=== PATIENT | male | born 1940 | race Caucasian/White ===

== ENCOUNTER 2021-08-10 09:09 | Inpatient (IN) | payer MEDICARE ==
[~2021-08-10] VITALS: Ht 160 cm; Wt 82.1 kg
[2021-08-10] MEDS ORDERED: MELATONIN 3 MG TABLET PO PRN (11:45)
[2021-08-10] MEDS ORDERED: LOPERAMIDE 2 MG (IMODIUM) TABLET PO PRN (11:45)
[2021-08-10] MEDS ORDERED: ACETAMINOPHEN 325 MG TABLET PO PRN (11:45)
[2021-08-10] MEDS ORDERED: CALCIUM CARBONATE 500 MG (TUMS) TAB.CHEW PO PRN (11:45)
[2021-08-10] MEDS ORDERED: diphenhydrAMINE 25 MG TAB (BENADRYL) PO PRN (11:45)
[2021-08-10] MEDS ORDERED: ONDANSETRON 4 MG (ZOFRAN) ORAL DISSOLVE TAB PO PRN (11:45)
[2021-08-10] MEDS ORDERED: LACTULOSE SYRUP 10GM/15ML (ENULOSE) 30ML UDC PO PRN (11:45)
[2021-08-10] MEDS ORDERED: BISACODYL 10 MG SUPP (DULCOLAX) PR PRN (11:45)
[2021-08-10] MEDS ORDERED: ALPRAZolam 0.25 MG (XANAX) TAB PO PRN (11:45)
[2021-08-10] MEDS ORDERED: DOCUSATE SODIUM 100 MG (COLACE) CAP PO PRN (11:45)
[2021-08-10] MEDS ORDERED: guaiFENesin/CODEINE (ROBITUSSIN AC) 10ML UDC PO PRN (11:45)
[2021-08-10] MEDS ORDERED: FLEET ENEMA ADULT 1 EA BTL PR PRN (11:45)
[2021-08-10 13:15] VITALS: BP 131/63
--- NOTE | 2021-08-10 13:56 | Occupational Therapy Eval ---
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 He was diagnosed with UTI and hyponatremia. Per patient, he lives with his daughter in a single story home. Daughter reports that pt is dependent for upper body dressing, LB dressing, toileting, and bathing. Pt able to feed self with use of L hand. R side presents with flexed synergy pattern. Pt has a resting hand splint that he is supposed to wear at night. He only walks a very short distance (<10 feet) with use of cane and min a. Otherwise, pt uses manual w/c for all mobility. He was able to transfer in/out of w/c without assistance. Pt with indwelling marcos catheter Reviewed History: Yes Social History Home: Single Level Current Living Status: Children Entry Into Home: Level Entry ADL-Prior Level of Function SCALE: Activities may be completed with or without assistive devices. 4-Mamdhbnntc-kihyxjo completes the activity by him/herself with no assistance from a helper. 5-Set-up or Clean-up Assistance-helper sets up or cleans up; patient completes activity. [place] assists only prior to or following the activity. 4-Supervision or Touching Assistance-helper provides verbal cues and/or touching/steadying and/or contact guard assistance as patient completes activity. Assistance may be provided throughout the activity or intermittently. 3-Partial/Moderate Assistance-helper does LESS THAN HALF the effort. [place] lifts, holds or supports trunk or limbs, but provides less than half the effort. 2-Substantial/Maximal Assistance-helper does MORE THAN HALF the effort. [place] lifts or holds trunk or limbs and provides more than half the effort. 4-Xjgccevpk-ybgydg does ALL the effort. Patient does none of the effort to complete the activity. Or, the assistance of 2 or more helpers is required for the patient to complete the activity. If activity was not attempted, code reason: 7-Patient Refused. 9-Not Applicable-not attempted and the patient did not perform the activity before the current illness, exacerbation or injury. 10-Not Attempted due to Environmental Limitations-(lack of equipment, weather restraints, etc.). 88-Not Attempted due to Medical Conditions or Safety Concerns. Self Care: Dependent Functional Cognition: Needed Some Help DME/Equipment: Bath Bench, Tub/Shower Drive Self: No OT Current Status Subjective Pt denies pain, agreeable to evaluation. Appearance Pt left sitting in recliner, physical therapy entering room. Mental Status/Objective Patient Orientation: Person, Situation Attachments: Marcos Catheter (indewelling marcos catheter ) Current Hearing Aids: No Dentures/Partials: Yes Hand Dominance: Left Upper Extremity ROM RUE: severely impaired; flexed synergy pattern. LUE: WFL Upper Extremity Strength L shoulder: 3/5 L elbow: 4/5 L vibration engineer: poor ADL-Treatment Eating (QC): 4 (per patient report with L hand) Oral Hygiene (QC): 4 Shower/Bathe Self (QC): 7 Upper Body Dressing (QC): 7 Lower Body Dressing (QC): 1 (assist x2) On/Off Footwear (QC): 1 Toileting Hygiene (QC): 1 (indwelling marcos catheter) Pt sitting in w/c at OT arrival. MAX A to stand. Assist x2 to pivot towards recliner. Very unsteady on feet secondary to weakness. Assist needed to lift/cross bilateral feet over contralateral knee. Max a to don/doff bilateral socks/shoes secondary to impaired bilateral integration and functional use of L hand. At this time pt requires max a to stand and maintain balance, thus needing a second person to assist with clothing management over hips. Family reports that pt is dependent for all adls except eating. However pt does exhibit some potential to improve independence in order to reduce burden of care on caregiver. Pt left with ARRIAGA to take over treatment. Education OT Patient Education: Correct positioning, Purpose of tx/functional activities, Rehab process, Safety issues, Transfer techniques, W/C management Teaching Recipient: Patient, Family Teaching Methods: Demonstration, Discussion Response to Teaching: Verbalize Understanding, Return Demonstration, Reinforcement Needed OT Short Term Goals Short Term Goals Time Frame: Aug 20, 2021 Eatin Oral hygiene: 5 Toileting hygiene: 2 Shower/bathe self: 2 Upper body dressin Lower body dressin Putting on/taking off footwear: 2 OT Interior Design Director Goals Interior Design Director Goals Time Frame: Sep 06, 2021 Eating (QC): 5 Oral Hygiene (QC): 5 Toileting Hygiene (QC): 4 Shower/Bathe Self (QC): 3 Upper Body Dressing (QC): 3 Lower Body Dressing (QC): 3 On/Off Footwear (QC): 3 1=Demonstrate adherence to instructed precautions during ADL tasks. 2=Patient will verbalize/demonstrate understanding of assistive devices/modifications for ADL. 3=Patient will improve strength/tolerance for activity to enable patient to perform ADL's. OT Education/Plan Problem List/Assessment Assessment: Decreased Activ Tolerance, Decreased Safety Aware, Decreased UE Strength, Dependent Transfers, Impaired Bed Mobility, Impaired Cognition, Impaired Coordination, Impaired Funct Balance, Impaired Self-Care Skills, Restricted Funct UE ROM Discharge Recommendations Plan/Recommendations: Continue POC Therapy Discharge Recommendati: Post Acute OT Treatment Plan/Plan of Care Treatment,Training & Education: Yes Patient would benefit from OT for education, treatment and training to promote independence in ADL's, mobility, safety and/or upper extremity function for ADL's. Plan of Care: ADL Retraining, Caregiver Training, Cognitive Retraining, Functional Mobility, Group Exercise/Act as Ind, Orthotic Fitting/Training, UE Funct Exercise/Act, UE Neuromus Re-Ed/Coord, W/C Management Training Treatment Duration: Sep 06, 2021 Frequency: At least 5 of 7 days/Wk (IRF) Estimated Hrs Per Day: 1.5 hours per day (75-90min/day ) Agreement: Yes Time/GCodes Start Time: 13:14 Stop Time: 13:30 Total Time Billed (hr/min): 16 Billed Treatment Time 1 visit Diane Bey OT Aug 10, 2021 13:56
--- NOTE | 2021-08-10 14:05 | Physical Therapy Evaluation ---
PT Evaluation-General Medical Diagnosis Admission Date Medical Diagnosis: debility Onset Date: August 04, 2021 Therapy Diagnosis Therapy Diagnosis: impaired mobility, balance, strength Referral Physician: Kenna Medley DO Reason for Referral: Evaluation/Treatment Medical History Reviewed History: Yes Social History Current Living Status: Children (daughter) Entry Into Home: Level Entry Prior Prior Level of Function SCALE: Activities may be completed with or without assistive devices. 0-Lmpryxkmdf-cmdhxys completes the activity by him/herself with no assistance from a helper. 5-Set-up or Clean-up Assistance-helper sets up or cleans up; patient completes activity. [place] assists only prior to or following the activity. 4-Supervision or Touching Assistance-helper provides verbal cues and/or touching/steadying and/or contact guard assistance as patient completes activity. Assistance may be provided throughout the activity or intermittently. 3-Partial/Moderate Assistance-helper does LESS THAN HALF the effort. [place] lifts, holds or supports trunk or limbs, but provides less than half the effort. 2-Substantial/Maximal Assistance-helper does MORE THAN HALF the effort. [place] lifts or holds trunk or limbs and provides more than half the effort. 6-Tkigodpqh-mkemxr does ALL the effort. Patient does none of the effort to complete the activity. Or, the assistance of 2 or more helpers is required for the patient to complete the activity. If activity was not attempted, code reason: 7-Patient Refused. 9-Not Applicable-not attempted and the patient did not perform the activity b efore the current illness, exacerbation or injury. 10-Not Attempted due to Environmental Limitations-(lack of equipment, weather restraints, etc.). 88-Not Attempted due to Medical Conditions or Safety Concerns. Bed Mobility: 3 Transfers (B,C,W/C): 3 Gait: 3 Indoor Mobility (Ambulation): Needed Some Help Prior Devices Use: Manual wheelchair Prior Device Use: SPC only ambulated a few feet at a time PT Evaluation-Current Subjective Patient in recliner pre tx, agrees to PT, has no complaints of pain. Pt/Family Goals to be independent at home Objective Patient Orientation: Person, Place, [place] ROM/Strength ROM Lower Extremities WNL Strength Lower Extremities RLE (hip flexion 3+/5, knee flexion 3+/5, knee extension 4-/5, dorsiflexion 3- /5), LLE (hip flexion 3+/5, knee flexion 4+/5, knee extension 4+/5, dorsiflexion 4+/5) Sensory Vision: Functional Hearing: Functional Sensation Right Lower Extremit: Impaired Sensation Left Lower Extremity: Intact Transfers Roll Left & Right (QC): 10 Sit to Lying (QC): 10 Lying to Sitting/Side of Bed(Q: 10 Sit to Stand (QC): 3 Chair/Yfa-ej-Clmxk Xfer(QC): 3 Toilet Transfer (QC): 3 Car Transfer (QC): 3 Patient performs sit <-> stand with min assist, transfers min assist, car transfer mod assist. Patient is unsteady on his feet with just standing and transfers, needs cues for positioning and safety, transfers better to the left s tai. Gait Does the Patient Walk?: Yes Mode of Locomotion: Walk Anticipated Mode of Locomotion: Walk Walk 10 feet (QC): 88 Walk 50 ft with 2 Turns(QC): 88 Walk 150 ft (QC): 88 Walking 10ft/uneven surface-QC: 88 Distance: 5' Gait Assistive Device: Cane Single Point Comments/Gait Description Patient can ambulate 5' with a SPC with min assist, WC follow, patient has difficulty extending his right leg to take a step, his right foot tends to supinate, his daughter states he has an AFO but doesn't like to wear it. Wheelchair Training Does the Pt Use a Wheelchair?: Yes Distance: 50' Wheel 50 ft with 2 turns (QC): 4 Wheel 150 ft (QC): 88 Type of Wheelchair: Manual SBA, cues for direction, uses both feet to propel Stairs 1 Step (curb) (QC): 88 4 Steps (QC): 88 12 Steps (QC): 88 Balance Sitting Static: Fair Sitting Dynamic: Fair Standing Static: Poor Standing Dynamic: Poor Picking up an Object (QC): 88 Assessment/Needs Patient in WC post tx, DIET THERAPIST will be taking over tx from here. Patient has impaired mobility, strength, endurance, balance. He has weakness and decreased coordination on the right side. Rehab Potential: Fair PT Short Term Goals Short Term Goals Time Frame: Aug 17, 2021 Roll Left & Right: 3 (Ed) Sit to lyin (Ed) Lying to sitting on side of be: 3 (Ed) Sit to stand: 4 (CGA) Chair/uzx-wn-sxuod transfer: 4 (CGA) Walk 10 feet: 4 (CGA) PT Shelter Goals Cash Specialist Goals PT Shelter Goals Time Frame: Aug 31, 2021 Roll Left & Right (QC): 4 (SBA) Sit to Lying (QC): 4 (SBA) Lying-Sitting on Side/Bed(QC): 4 (SBA) Sit to Stand (QC): 4 (SBA) Chair/Dea-pq-Wlsvs Xfer(QC): 4 (SBA) Toilet Transfer (QC): 4 (SBA) Car Transfer (QC): 4 (SBA) Does the Patient Walk: Yes Walk 10 feet (QC): 4 (SBA) Walk 50ft with 2 Turns (QC): 88 Walk 150 ft (QC): 88 Walking 10ft on Uneven Surface: 4 (CGA) 1 Step (curb) (QC): 88 4 Steps (QC): 88 12 Steps (QC): 88 Picking up an Object (QC): 88 Wheel 50 feet with 2 turns (QC: 6 Wheel 150 feet: 6 PT Plan Problem List Problem List: Activity Tolerance, Functional Strength, Safety, Balance, Gait, Transfer, Bed Mobility, ROM Treatment/Plan Treatment Plan: Continue Plan of Care Treatment Plan: Bed Mobility, Education, Functional Activity Ki, Functional Strength, Group Therapy, Gait, Safety, Therapeutic Exercise, Transfers Treatment Duration: Aug 31, 2021 Frequency: At least 5 of 7 days/Wk (IRF) Estimated Hrs Per Day: 1.5 hours per day Patient and/or Family Agrees t: Yes Safety Risks/Education Patient Education: Gait Training, Transfer Techniques, Correct Positioning, W/C Management, Safety Issues Teaching Recipient: Patient Teaching Methods: Demonstration, Discussion Response to Teaching: Reinforcement Needed Discharge Recommendations Plan Patient will perform bed mobility and transfer training, balance and endurance training, functional strengthening, stair training, gait training, and education, to improve functional mobility and independence at home. Therapy Discharge Recommendati: Scheduled Assistance, Home & Family, Post Acute PT Time/GCodes Time In: 1330 Time Out: 1340 Total Billed Treatment Time: 10 Total Billed Treatment 1 visit PAN ALEKSANDR LEAL PT Aug 10, 2021 14:05
--- NOTE | 2021-08-10 14:38 | PM&R Post Admission Assessment ---
PM&R HP Date of Visit: Aug 10, 2021 Time of Visit: 15:15 History of Present Illness CC: Debility HPI: This is an 81 yr old male clinic pt [facility]. He was admitted to [facility] with a UTI, hyponatremia, hypertension, and BPH. He is on FloMax and has a suprapubic catheter. He has type 2 diabetes and a history of CVA 3 years ago with right sided weakness. Pt was admitted and is currently needing a lot more help with ADLs and ambulation. Pt is in need of aggressive treatment in order to go home with daughter who works during the day. At this current time pt denies any significant new problems. I did review his hospital course from [facility] and discharge medications. Past Mtqlakr-Vnwnjn-Izkail Hx Past Med/Social Hx: Reviewed Nursing Past Med/Soc Hx, Reviewed and Corrections made Patient Social History Marrital Status: single Employed/Student: retired Alcohol Use: Denies Use Smoking Status: Former Smoker Past Medical History SP catheter Cardiac: High Cholesterol, Hypertension pacemaker Neurological: Stroke Genitourinary: Benign Prostatic Hyperpl, Neurogenic Bladder Endocrine: Diabetes, Non-Insulin dep Prior Level of Function Bed Mobility: 3 Transfers: 3 Gait: 3 Indoor Mobility (Ambulation): Needed Some Help Prior Devices Use: Manual wheelchair SPC Self Care: Dependent Functional Cognition: Needed Some Help Drive Self: No Current Level of Fuctioning Roll Left to Right: 10 Sit to Lyin Lying to Sitting/Side of Bed: 10 Sit to Stand: 3 Chair/Lxg-vq-Lqvip Xfer: 3 Car Transfer: 3 Does the Patient Walk: Yes Mode of Locomotion: Walk Anticipated Mode of Locomotion: Walk Walk 10 feet: 88 Walk 50 ft with 2 Turns: 88 Walk 150 ft: 88 Walking 10ft on uneven surface: 88 Gait Assistive Device: Cane Single Point Does the Pt Use a Wheelchair: Yes Wheelchair Distance: 50' Wheel 50 ft with 2 turns: 4 Wheel 150 ft: 88 Type of Wheelchair: Manual 1 Step (curb): 88 4 Steps: 88 12 Steps: 88 Picking up an Object: 88 Eatin (per patient report with L hand) Oral Hygiene: 4 Shower/Bathe Self: 7 Upper Body Dressin Lower Body Dressin (assist x2) On/Off Footwear: 1 Toileting Hygiene: 1 (indwelling marcos catheter) PM&R Allergy/Meds/Data Review Allergies Coded Allergies: lovastatin (Verified Adverse Reaction, Unknown, Vomiting, 08/10/21) simvastatin (Verified Adverse Reaction, Unknown, 08/10/21) Current Medications Current Medications Reviewed Review of Systems Constitutional: see HPI, malaise, weakness EENTM: no symptoms reported Respiratory: no symptoms reported Cardiovascular: no symptoms reported Gastrointestinal: no symptoms reported Genitourinary: no symptoms reported Musculoskeletal: back pain Skin: no symptoms reported Psychiatric/Neurological: No Symptoms Reported All Other Systems Reviewed Negative Unless Noted: Yes Physical Exam Physical Exam Vital Signs Vital Signs - First Documented 08/10/21 13:15 Temp 37.1 Pulse 104 Resp 18 B/P (MAP) 131/63 (85) Pulse Ox 97 O2 Delivery Room Air Capillary Refill : Height, Weight, BMI Height: '" Weight: lbs. oz. kg; BMI Method: General Appearance: No Apparent Distress, WD/WN, Chronically ill, Obese Eyes: Bilateral Eye Normal Inspection, Bilateral Eye PERRL HEENT: PERRL/EOMI, Normal ENT Inspection, Pharynx Normal Neck: Full Range of Motion, Normal Inspection, Non Tender, Supple, Carotid Bruit Respiratory: Chest Non Tender, Lungs Clear, Normal Breath Sounds, No Accessory Muscle Use, No Respiratory Distress Cardiovascular: Regular Rate, Rhythm, No Edema, No Gallop, No JVD, No Murmur, Normal Peripheral Pulses Gastrointestinal: Normal Bowel Sounds, No Organomegaly, No Pulsatile Mass, Non Tender, Soft Back: Normal Inspection, No CVA Tenderness, No Vertebral Tenderness Extremity: Normal Capillary Refill, Normal Inspection, Normal Range of Motion, Non Tender, No Calf Tenderness, No Pedal Edema Neurologic/Psychiatric: Alert, Oriented x3, meter changes records clerk II-XII Norm as Tested, Depressed Affect, Motor Weakness (right sided chronic, generalized all extremities) Skin: Normal Color, Warm/Dry Lymphatic: No Adenopathy PM&R Medical Assessment & Plan REHAB/MEDICAL ASSESSMENT AND PLAN: REHAB IMPAIRMENT GROUP: Debility ETIOLOGIC DIAGNOSIS: Debility The comorbidities that impact the patients function and/or functional outcome by: neurogenic bladder, pacemaker, advanced age REHAB PLAN: The patient is being admitted to our comprehensive inpatient rehabilitation [facility] and can tolerate the intensity of service consisting of at least: 180 minutes of therapy a day, 5 out of 7 days a week Rehab treatment will consist of: PT OT will focus on regaining function in order to return to independent living with daughter his shoe cutter The patient/family has a good understanding of our discharge process and will benefit from an interdisciplinary inpatient rehabilitation program. The patient has potential to make improvement and is in need of at least two of the following multidisciplinary therapies including but not limited to physical, occupational, speech, and prosthetics and orthotics. Additionally the patient will need services from respiratory, nutritional services, wound care, psychology, etc. (Customize this to each patient). Given the patients complex condition and risk of further medical complications, rehabilitation services cannot be safely or effectively provided at a lower level of care such as a [facility] facility. BARRIERS TO DISCHARGE: Advanced age and debility ESTIMATED LOS: 10 days DISPOSITION: Home RELEVANT CHANGES SINCE PREADMISSION SCREENING: I have compared the patients medical and functional status at the time of the preadmission screening and there are: no changes PROGNOSIS: Fair REHABILITATION GOALS: 1. PT OT will focus on regaining function in order to return to independent monica ng with daughter his shoe cutter All the above goals were reviewed with the patient and he/she is in agreement. By signing this document, I acknowledge that I have personally performed a full physical examination on this patient within 24 hours of admission to this inpatient rehabilitation facility and have determined the patient to be able to tolerate the above course of treatment at an intensive level for a reasonable period of time. I will be completing a detailed individualized Plan of Care for this patient by day #4 of the patients stay based upon the Preadmission Screen, the Post-Admission Evaluation, and the therapy evaluations. Admission Dx/Comorbidities: (1) Debility ICD Codes: R53.81 - Other malaise Assessment/Plan Assessment and Plan Assess & Plan/Chief Complaint Assessment: Debility Pacemaker Neurogenic bladder s/p UTI DM CVA 3 years ago with right sided weakness Advanced age Plan: PT OT per protocol Pain control Home meds Cardiology consult LIBBY LEAL DO Aug 10, 2021 14:38
--- NOTE | 2021-08-10 15:12 | Physical Therapy Daily Note ---
PT Daily Note-Current Subjective Pt sitting in [facility] being evaluated upon arrival. Pt agrees to PT/OT co-treat for tx. Pain Location: No Pain Reported Mental Status Patient Orientation: Person, Place, Situation Transfers SCALE: Activities may be completed with or without assistive devices. 0-Vhuusxnrjg-qggabkg completes the activity by him/herself with no assistance from a helper. 5-Set-up or Clean-up Assistance-helper sets up or cleans up; patient completes activity. [place] assists only prior to or following the activity. 4-Supervision or Touching Assistance-helper provides verbal cues and/or touching/steadying and/or contact guard assistance as patient completes activity. Assistance may be provided throughout the activity or intermittently. 3-Partial/Moderate Assistance-helper does LESS THAN HALF the effort. [place] lifts, holds or supports trunk or limbs, but provides less than half the effort. 2-Substantial/Maximal Assistance-helper does MORE THAN HALF the effort. [place] lifts or holds trunk or limbs and provides more than half the effort. 4-Rapnfmfeh-abtvsr does ALL the effort. Patient does none of the effort to complete the activity. Or, the assistance of 2 or more helpers is required for the patient to complete the activity. If activity was not attempted, code reason: 7-Patient Refused. 9-Not Applicable-not attempted and the patient did not perform the activity before the current illness, exacerbation or injury. 10-Not Attempted due to Environmental Limitations-(lack of equipment, weather restraints, etc.). 88-Not Attempted due to Medical Conditions or Safety Concerns. Sit to Stand (QC): 2 Chair/Qvj-vi-Oochf Xfer(QC): 2 Weight Bearing Full Weight Bearing Full Weight Bearing Wheelchair Training Does the Pt Use a Wheelchair?: Yes Wheel 50 ft with 2 turns (QC): 4 Type of Wheelchair: Manual Exercises Seated Therapy Exercises: Sit to stand Seated Reps: 3 NuStep Minutes: 10 NuStep Workload: 1 Treatments Pt requires the skill of two clinicians that could not otherwise be completed by a r&d lab technician because of increase weakness, decrease in activity tolerance, coordination of UE & LE danielle. w/transfers. Pt propels [facility] to Therapy Gym. Pt completes Sit to Stands at //bars with RB in between each, focus on proper posture and breaking up tone UE. Pt uses NuStep for 10m at [facility] 1 for ROM focus. R UE is not used but is stretched during NuStep use. Pt returns to room to brush teeth and dentures then TF from [facility] to EOB after several attempts. Pt requires assistance to lift B LE into bed and repositioned to comfort. All needs met, call light in hand. Assessment Current Status: Fair Progress Pt is very apprehensive danielle. w/TF. Encouragement given during sequencing of task. Pt fatigues easily, needing frequent RB. PT Short Term Goals Short Term Goals Time Frame: Aug 17, 2021 Roll Left & Right: 3 (Ed) Sit to lyin (Ed) Lying to sitting on side of be: 3 (Ed) Sit to stand: 4 (CGA) Chair/xce-gk-iuvoe transfer: 4 (CGA) Walk 10 feet: 4 (CGA) PT Deboning Team Leader Goals Deboning Team Leader Goals PT Skilled Nursing Goals Time Frame: Aug 31, 2021 Roll Left & Right (QC): 4 (SBA) Sit to Lying (QC): 4 (SBA) Lying-Sitting on Side/Bed(QC): 4 (SBA) Sit to Stand (QC): 4 (SBA) Chair/Dru-hy-Qyvhn Xfer(QC): 4 (SBA) Toilet Transfer (QC): 4 (SBA) Car Transfer (QC): 4 (SBA) Does the Patient Walk: Yes Walk 10 feet (QC): 4 (SBA) Walk 50ft with 2 Turns (QC): 88 Walk 150 ft (QC): 88 Walking 10ft on Uneven Surface: 4 (CGA) 1 Step (curb) (QC): 88 4 Steps (QC): 88 12 Steps (QC): 88 Picking up an Object (QC): 88 Wheel 50 feet with 2 turns (QC: 6 Wheel 150 feet: 6 PT Plan Problem List Problem List: Activity Tolerance, Functional Strength, Safety, Balance, Gait, Transfer Treatment/Plan Treatment Plan: Continue Plan of Care Treatment Plan: Bed Mobility, Education, Functional Activity Ki, Functional Strength, Group Therapy, Gait, Safety, Therapeutic Exercise, Transfers Treatment Duration: Aug 31, 2021 Frequency: At least 5 of 7 days/Wk (IRF) Estimated Hrs Per Day: 1.5 hours per day Patient and/or Family Agrees t: Yes Safety Risks/Education Patient Education: Transfer Techniques, Correct Positioning, Safety Issues Teaching Recipient: Patient, Family Teaching Methods: Discussion Response to Teaching: Verbalize Understanding, Reinforcement Needed Time/GCodes Time In: 1340 Time Out: 1500 Total Billed Treatment Time: 80 Total Billed Treatment Co-treat w/OT for 80m 1, FA x3 (35m), [facility] (15m) & EX x2 (30m) CAROLINA THOMPSON ACETYLENE OPERATOR Aug 10, 2021 15:12
--- NOTE | 2021-08-10 15:19 | Occupational Ther Daily Note ---
OT Current Status-Daily Note Subjective Pt alert, sitting in w/c. Took over care from OTR/L. No c/o pain. Family present with pt. Mental Status/Objective Patient Orientation: Person, Place, Time, Situation ADL-Treatment Co-treat with PT([id number]), skills of 2 clinicians required to decrease fall risk, increase all mobility for daily tasks and increase ROM of R UE. PT focusing on transfers, standing balance, and B LE exercises while OT focusing on ADLs, R UE ROM and functional transfers. Pt able to propel w/c with SBA for safety using B LE's. Pt stood at parallel bars 5x's, 3x's working on upright standing then 2's working on standing balance. Pt then complete NuStep with assist to alternate R UE while exercises. Pt then was transported to bathroom with w/c. Pt required assist to cleanse dentures and set up to cleanse mouth. Pt educated on one handed techniques to complete oral care and given suction denture brush. Pt very anxious with SPT, would lift feet like stepping and strongly gripping w/c. ASSISTANT PRINCIPAL/ALEXANDRA comforted pt during SPT to allow safe transfer from w/c to bed. Assist for bed mobility. After therapy, pt lying in bed with call light/phone in reach. Pt's family in room. Therapy Code Descriptions/Definitions Functional [place] Measure: 0=Not Assessed/NA 4=Minimal Assistance 1=Total Assistance 5=Supervision or Setup 2=Maximal Assistance 6=Modified [place] 3=Moderate Assistance 7=Complete IndependenceSCALE: Activities may be completed with or without assistive devices. 8-Stqlpeucwh-lszvfft completes the activity by him/herself with no assistance from a helper. 5-Set-up or Clean-up Assistance-helper sets up or cleans up; patient completes activity. [place] assists only prior to or following the activity. 4-Supervision or Touching Assistance-helper provides verbal cues and/or touching/steadying and/or contact guard assistance as patient completes activity. Assistance may be provided throughout the activity or intermittently. 3-Partial/Moderate Assistance-helper does LESS THAN HALF the effort. [place] lifts, holds or supports trunk or limbs, but provides less than half the effort. 2-Substantial/Maximal Assistance-helper does MORE THAN HALF the effort. [place] lifts or holds trunk or limbs and provides more than half the effort. 4-Iznonnaaf-sjlxza does ALL the effort. Patient does none of the effort to complete the activity. Or, the assistance of 2 or more helpers is required for the patient to complete the activity. If activity was not attempted, code reason: 7-Patient Refused. 9-Not Applicable-not attempted and the patient did not perform the activity before the current illness, exacerbation or injury. 10-Not Attempted due to Environmental Limitations-(lack of equipment, weather restraints, etc.). 88-Not Attempted due to Medical Conditions or Safety Concerns. Oral Hygiene (QC): 2 (Max A) Per daughter, pt is dependent on her to complete dressing, bathing and toileting at home and would like to have pt be able assist more in ADLs. OT Short Term Goals Short Term Goals Time Frame: Aug 20, 2021 Eatin Oral hygiene: 5 Toileting hygiene: 2 Shower/bathe self: 2 Upper body dressin Lower body dressin Putting on/taking off footwear: 2 OT Residential Goals [employer] Advisor Goals Time Frame: Sep 06, 2021 Eating (QC): 5 Oral Hygiene (QC): 5 Toileting Hygiene (QC): 4 Shower/Bathe Self (QC): 3 Upper Body Dressing (QC): 3 Lower Body Dressing (QC): 3 On/Off Footwear (QC): 3 1=Demonstrate adherence to instructed precautions during ADL tasks. 2=Patient will verbalize/demonstrate understanding of assistive devices/modifications for ADL. 3=Patient will improve strength/tolerance for activity to enable patient to perform ADL's. OT Education/Plan Problem List/Assessment Assessment: Decreased Activ Tolerance, Decreased Safety Aware, Decreased UE Strength, Dependent Transfers, Impaired Bed Mobility, Impaired Funct Balance, Impaired Self-Care Skills, Restricted Funct UE ROM Discharge Recommendations Plan/Recommendations: Continue POC Treatment Plan/Plan of Care Patient would benefit from OT for education, treatment and training to promote independence in ADL's, mobility, safety and/or upper extremity function for ADL's. Plan of Care: ADL Retraining, Caregiver Training, Cognitive Retraining, Functional Mobility, Group Exercise/Act as Ind, Orthotic Fitting/Training, UE Funct Exercise/Act, UE Neuromus Re-Ed/Coord, W/C Management Training Treatment Duration: Sep 06, 2021 Frequency: At least 5 of 7 days/Wk (IRF) Estimated Hrs Per Day: 1.5 hours per day (75-90min/day ) Agreement: Yes Rehab Potential: Fair Time/GCodes Start Time: 13:40 Stop Time: 15:00 Total Time Billed (hr/min): 80 Billed Treatment Time 1 visit-FA 3(45 min) ADL 2 (35 min) co-treat with PT 80 min ROSALEE ESQUIVEL Aug 10, 2021 15:19
[2021-08-10] MEDS ORDERED: CRAMPS OTC PO PRN (19:30)
[2021-08-10 19:41] VITALS: BP 147/76
[2021-08-10] MEDS: polyethylene glycoL POWDER 17 GM (MIRALAX) PACK PO SCH (20:06)
[2021-08-10] MEDS: DOCUSATE SODIUM 100 MG (COLACE) CAP PO SCH (20:17)
[2021-08-10] MEDS: SENNA W/DOCUSATE (SENOKOT S) TABLET PO SCH (20:18)
[2021-08-11] MEDS ORDERED: RT-ALBUTEROL HFA 8.5 GM INHALER IH PRN (06:30)
[2021-08-11] MEDS ORDERED: BETAMETHASONE/CLOTRIM CREAM (LOTRISONE) 45 GM TP PRN (06:30)
[2021-08-11] MEDS ORDERED: SIMETHICONE 80 MG (MYLICON) CHEW PO PRN (06:30)
--- NOTE | 2021-08-11 06:35 | PM&R Progress Note ---
Subjective HPI/CC On Admission Date Seen by Provider: Aug 11, 2021 Time Seen by Provider: 12:30 Subjective/Events-last exam 08/11/2021: Pt did pretty well throughout the night Bowels moved last night Overall working on recovering strength Checked meds and labs Labs otherwise stable Review of Systems General: Fatigue, Malaise Objective Exam Vital Signs Vital Signs Date Time Temp Pulse Resp B/P (MAP) Pulse Ox O2 Delivery O2 Flow Rate FiO2 08/11/21 21:38 Room Air 08/11/21 20:52 95 08/11/21 19:19 36.5 66 16 116/69 (85) Capillary Refill : General Appearance: No Apparent Distress, WD/WN, Chronically ill, Obese HEENT: PERRL/EOMI, Normal ENT Inspection, Pharynx Normal Neck: Full Range of Motion, Normal Inspection, Non Tender, Supple, Carotid Bruit Respiratory: Chest Non Tender, Lungs Clear, Normal Breath Sounds, No Accessory Muscle Use, No Respiratory Distress Cardiovascular: Regular Rate, Rhythm, No Edema, No Gallop, No JVD, No Murmur, Normal Peripheral Pulses Gastrointestinal: Normal Bowel Sounds, No Organomegaly, No Pulsatile Mass, Non Tender, Soft Back: Normal Inspection, No CVA Tenderness, No Vertebral Tenderness Extremity: Normal Capillary Refill, Normal Inspection, Normal Range of Motion, Non Tender, No Calf Tenderness, No Pedal Edema Neurologic/Psychiatric: Alert, Oriented x3, supervisor prepress II-XII Norm as Tested, Depressed Affect, Motor Weakness (right sided chronic, generalized all extre mities) Skin: Normal Color, Warm/Dry Lymphatic: No Adenopathy Results/Procedures Lab Laboratory Tests 08/11/21 08:16 Patient resulted labs reviewed. FIM Transfers Therapy Code Descriptions/Definitions Functional [place] Measure: 0=Not Assessed/NA 4=Minimal Assistance 1=Total Assistance 5=Supervision or Setup 2=Maximal Assistance 6=Modified [place] 3=Moderate Assistance 7=Complete IndependenceSCALE: Activities may be completed with or without assistive devices. 8-Tsbarqptrj-zjksoeb completes the activity by him/herself with no assistance from a helper. 5-Set-up or Clean-up Assistance-helper sets up or cleans up; patient completes activity. [place] assists only prior to or following the activity. 4-Supervision or Touching Assistance-helper provides verbal cues and/or touchi ng/steadying and/or contact guard assistance as patient completes activity. Assistance may be provided throughout the activity or intermittently. 3-Partial/Moderate Assistance-helper does LESS THAN HALF the effort. [place] lifts, holds or supports trunk or limbs, but provides less than half the effort. 2-Substantial/Maximal Assistance-helper does MORE THAN HALF the effort. [place] lifts or holds trunk or limbs and provides more than half the effort. 2-Zraongjga-psvcxf does ALL the effort. Patient does none of the effort to complete the activity. Or, the assistance of 2 or more helpers is required for the patient to complete the activity. If activity was not attempted, code reason: 7-Patient Refused. 9-Not Applicable-not attempted and the patient did not perform the activity befo re the current illness, exacerbation or injury. 10-Not Attempted due to Environmental Limitations-(lack of equipment, weather restraints, etc.). 88-Not Attempted due to Medical Conditions or Safety Concerns. Roll Left to Right (QC): 10 Sit to Lying (QC): 10 Sit to Stand (QC): 2 Chair/Qbp-jp-Nsezx Xfer(QC): 2 Car Transfer (QC): 3 Gait Training Does the Patient Walk?: Yes Walk 10 feet (QC): 88 Walk 50 ft with 2 Turns(QC): 88 Walk 150 ft (QC): 88 Walking 10ft/uneven surface-QC: 88 Gait Assistive Device: Cane Single Point Wheelchair Training Does the Pt Use a Wheelchair?: Yes Distance: 50' Wheel 50 ft with 2 turns (QC): 4 Wheel 150 ft (QC): 88 Type of Wheelchair: Manual Stair Training 1 Step (curb) (QC): 88 4 Steps (QC): 88 12 Steps (QC): 88 Balance Picking up an Object (QC): 88 ADL-Treatment Eating (QC): 4 (per patient report with L hand) Oral Hygiene (QC): 2 (Max A) Shower/Bathe Self (QC): 7 Upper Body Dressing (QC): 7 Lower Body Dressing (QC): 1 (assist x2) On/Off Footwear (QC): 1 Toileting Hygiene (QC): 1 (indwelling marcos catheter) Assessment/Plan Assessment and Plan Assess & Plan/Chief Complaint Assessment: Debility Pacemaker Neurogenic bladder s/p UTI catheter associated DM 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
--- NOTE | 2021-08-11 06:35 | Individualized Plan of Care ---
Individualized Plan of Care Rehab Nursing IPOC Order Admission Date Aug 10, 2021 at 13:15 Current Orders Orders Admission Order(Inpt,Obs,Sdc) (08/10/21 11:37) Vital Signs: Per Unit Policy ( 08,16,00 (08/10/21 11:37) Eric Trujillo (08/10/21 11:37) Sequential Compression Device (08/10/21 11:37) Drier And Grinder Tender-Inpt Rehab Con (08/10/21 11:37) Rehab Nursing Orders-Ipoc (08/10/21 11:37) Physical Therapy Rehab Orders (08/10/21 11:37) Occupational Therapy Rehab Ord (08/10/21 11:37) Speech Therapy Rehab Orders (08/10/21 11:37) Cbc With Automated Diff (08/11/21 06:00) Comprehensive Metabolic Panel (08/11/21 06:00) Precautions (Aru) (08/10/21 11:37) Weekly Weight WEEK (08/10/21 11:37) Rehab-Intensity Of Therapy (08/10/21 11:37) Initiate Admission Nursing Pro .admission (08/10/21 11:37) Alprazolam Tablet (Xanax Tablet) (08/10/21 11:45) Calcium Carbonate Chew Tablet (Antacid C (08/10/21 11:45) Diphenhydramine Tablet (Benadryl Tablet) (08/10/21 11:45) Docusate Sodium Capsule (Colace Capsule) (08/10/21 21:00) Docusate Sodium Capsule (Colace Capsule) (08/10/21 11:45) Bisacodyl Suppository (Dulcolax Supposit (08/10/21 11:45) Lactulose Oral Solution (Enulose Oral So (08/10/21 11:45) Na Phos/Na Biphos Enema (Fleet Enema Tam (08/10/21 11:45) Guaifenesin/Codeine Syrup (Robitussin Ac (08/10/21 11:45) Loperamide Tablet (Imodium Tablet) (08/10/21 11:45) Melatonin Tablet (Melatonin Tablet) (08/10/21 11:45) Polyethylene Glycol Powder Pkt (Miralax (08/10/21 21:00) Ondansetron Oral Dissolve Tab (Zofran (08/10/21 11:45) Senna S Tablet (Senokot S Tablet) (08/10/21 21:00) Acetaminophen Tablet/Caplet (Tylenol T (08/10/21 11:45) Code/Resuscitation (08/10/21 11:37) Initiate Admission Nursing Pro .admission (08/10/21 11:37) Admission Arrival Bed Request (08/10/21 13:54) Patient Visit (08/10/21 ) Pt Eval Moderate Complexity (08/10/21 ) Patient Visit (08/10/21 ) Functional Activities, Ea 15 (08/10/21 ) Wheelchair Mgmt/Propulsn 15min (08/10/21 ) Exercise Therap, Ea 15 Min (08/10/21 ) Consult Cardiology (08/10/21 15:50) General/Regular (08/10/21 Dinner) Ensure Plus Chocolate (08/10/21 16:09) (Nf) Leg Cramps Otc (08/10/21 19:30) Ciprofloxacin Tablet (Cipro Tablet) (08/11/21 09:00) Heparin Injection (Heparin Injection) (08/11/21 06:30) Lisinopril Tablet (Zestril Tablet) (08/11/21 09:00) Atorvastatin Tablet (Lipitor Tablet) (08/11/21 21:00) Albuterol Inhaler (Albuterol) (08/11/21 06:30) Amlodipine Tablet (Norvasc Tablet) (08/11/21 09:00) Aspirin Enteric Coated Tablet (Ecotrin T (08/11/21 09:00) Clopidogrel Tablet (Plavix Tablet) (08/11/21 09:00) Betamethasone/Clotrimazole Crm (Lotrison (08/11/21 06:30) Finasteride Tablet (Proscar Tablet) (08/11/21 09:00) Metformin Tablet (Glucophage Tablet) (08/11/21 07:00) Therapeutic Multivitamin Tab (Vitamins, (08/11/21 07:00) Simethicone Tablet (Mylicon Chewable Tab (08/11/21 06:30) Tamsulosin Capsule (Flomax Capsule) (08/11/21 18:00) Ropinirole Tablet (Requip Tablet) (08/11/21 21:00) Transfer - Bed/Room/Location (08/11/21 08:41) Code/Resuscitation (08/11/21 12:17) Patient Visit (08/11/21 ) Speech Sound Lang Comp (08/11/21 ) Treat. Speech/Lang/Voice (08/11/21 ) Svn Small Volume Nebulizer (08/11/21 12:28) Incentive Spirometry (Nursing) Q2H (08/11/21 12:28) Albuterol/Ipra Inhalation Soln (Duoneb I (08/11/21 14:00) Trospium Tablet (Sanctura Tablet) (08/11/21 21:00) (Nf) Clobetasol Propionate (Temovate) (08/12/21 09:00) (Nf) [place] Tar (T-Gel) (08/12/21 09:00) Mirabegron Tab (Myrbetriq Tablet) (08/12/21 08:00) (Nf) Selenium Sulfide (08/11/21 12:45) (Nf) Solifenacin Succinate (08/12/21 09:00) Patient May Use Own Meds, All (Patient M (08/11/21 12:45) Heparin Injection (Heparin Injection) (08/11/21 17:00) Patient Visit (08/11/21 ) Wheelchair Mgmt/Propulsn 15min (08/11/21 ) Exercise Therap, Ea 15 Min (08/11/21 ) Functional Activities, Ea 15 (08/11/21 ) Non-Formulary Medication (Non-Formulary (08/11/21 19:00) Rehab Nursing Orders: Ongoing Assess. of Cognitive Status, Ongoing Assess. of Function Status, Bladder Management, Bladder Scan, Bladder Training, Bowel Management, Bowel Training, Disease Management & Educaiton, DVT Prophylaxis, Fall Prevention, Fluid/Electrolyte/Nutrition Mgmt, Infection Prevention, Medication Management & Education, Management of Risks & Complications, Nutrition Management, Pain Management, Patient/Family Support, Safety Management Intensity of Therapy to be met Patient to be seen: Min.3h per day/5 of 7d PT IPOC Problem List: Activity Tolerance, Functional Strength, Safety, Balance, Gait, Transfer Treatment Plan: Continue Plan of Care Bed Mobility, Education, Functional Activity Ki, Functional Strength, Group Therapy, Gait, Safety, Therapeutic Exercise, Transfers Treatment Duration: Aug 31, 2021 Frequency: At least 5 of 7 days/Wk (IRF) Estimated Hrs Per Day: 1.5 hours per day OT IPOC Problems: Decreased Activ Tolerance, Decreased Safety Aware, Decreased UE Stren gth, Dependent Transfers, Impaired Bed Mobility, Impaired Funct Balance, Impaired Self-Care Skills, Restricted Funct UE ROM OT Treatment, Training and Edu: Yes Plan of Care: ADL Retraining, Caregiver Training, Cognitive Retraining, Functional Mobility, Group Exercise/Act as Ind, Orthotic Fitting/Training, UE Funct Exercise/Act, UE Neuromus Re-Ed/Coord, W/C Management Training Treatment Duration: Sep 06, 2021 Frequency: At least 5 of 7 days/Wk (IRF) Estimated Hrs Per Day: 1.5 hours per day (75-90min/day ) ST IPOC Speech Therapy Treatment Plan: Discontinue ST Treatment Duration: Aug 11, 2021 Frequency: Modified Program (IRF) Estimated Hrs Per Day: Other Drier And Grinder Tender/Case Mgmt Drier And Grinder Tender/Case Managemen: Discharge Planning Dietitian/Director Epidemiology Dietitian/Director Epidemiology to monitor nutritional status and make changes and/or recommendations as needed and work with speech pathology on dietary upgrades as the occur. Physician IPOC Medical Issues being managed closely and that require the 24 hour availability of a physician: Recent catheter associated UTI will require close monitoring due to indwelling s uprapubic catheter for neurogenic bladder in addition cardiology will monitor pacemaker maintenance while increasing independence with use of assistive devices Medical Issues: Bowel/Bladder Function, DVT Prophylaxis, Falls Precautions, Fluid/Electrolyte/Nutrition Balance, Infection Protection, Pain Management Brief Synthesis of Preadmission Screen, Post-Admission Evaluation, and Therapy Evaluations: PT and OT will focus on increasing use of assistive devices in order to regain independence and function in order to return home Medical Prognosis: Good Anticipated Length of Stay: 10 days LIBBY LEAL DO Aug 11, 2021 06:35
[2021-08-11 07:21] VITALS: BP 132/68
[2021-08-11] MEDS ORDERED: ACET325T38 PO (07:41)
[2021-08-11] MEDS ORDERED: RT-ALBUINH IH (07:42)
[2021-08-11] MEDS ORDERED: AMLO-251 PO (07:43)
[2021-08-11] MEDS ORDERED: ASPI-1238 PO (07:44)
[2021-08-11] MEDS ORDERED: ATOR80TA76 PO (07:45)
[2021-08-11] MEDS ORDERED: CIPR500T5 PO (07:46)
[2021-08-11] MEDS ORDERED: CLOB15OI15 TP (07:47)
[2021-08-11] MEDS ORDERED: CLOP75TA28 PO (07:48)
[2021-08-11] MEDS ORDERED: CLOT15CR6 TP (07:49)
[2021-08-11] MEDS ORDERED: FINA5TAB6 PO (07:50)
[2021-08-11] MEDS ORDERED: HYDR30CR69 RC (07:52)
[2021-08-11] MEDS ORDERED: LISI2.5T13 PO (07:53)
[2021-08-11] MEDS ORDERED: METF-397 PO (07:53)
[2021-08-11] MEDS ORDERED: MIRA50TA PO (07:54)
[2021-08-11] MEDS ORDERED: MULT-1076 PO (07:55)
[2021-08-11] MEDS ORDERED: [UNRECOGNIZED DRUG - CODE] TP (07:56)
[2021-08-11] MEDS ORDERED: POLY17PO54 PO (07:57)
[2021-08-11] MEDS ORDERED: ROPI0.5T4 PO (07:59)
[2021-08-11] MEDS ORDERED: SELE120S3 TP (08:00)
[2021-08-11] MEDS ORDERED: SIME80TA16 PO (08:01)
[2021-08-11] MEDS ORDERED: TMSL.4C PO (08:02)
[2021-08-11] MEDS ORDERED: SOLI10TA7 PO (08:02)
[2021-08-11] MEDS ORDERED: TROS20TA3 PO (08:03)
[2021-08-11] MEDS ORDERED: [UNRECOGNIZED DRUG - OTHER] SC (08:22)
[2021-08-11] MEDS ORDERED: HEPARIN SC (08:22)
[2021-08-11 08:23] LABS: BASOPHILS # (AUTO) 0.1 10^3/uL (0.0-0.1); BASOPHILS % (AUTO) 1 % (0-10); EOSINOPHILS # (AUTO) 0.8 10^3/uL (0.0-0.3); EOSINOPHILS % (AUTO) 9 % (0-10); HEMATOCRIT 38 % (40-54); HEMOGLOBIN 12.4 g/dL (13.3-17.7); LYMPHOCYTES # (AUTO) 2.1 10^3/uL (1.0-4.0); LYMPHOCYTES % (AUTO) 24 % (12-44); MEAN CORPUSCULAR HEMOGLOBIN 30 pg (25-34); MEAN CORPUSCULAR HGB CONC 33 g/dL (32-36); MEAN CORPUSCULAR VOLUME 92 fL (80-99); MEAN PLATELET VOLUME 9.1 fL (9.0-12.2); MONOCYTES # (AUTO) 0.6 10^3/uL (0.0-1.0); MONOCYTES % (AUTO) 7 % (0-12); NEUTROPHILS # (AUTO) 5.1 10^3/uL (1.8-7.8); NEUTROPHILS % (AUTO) 59 % (42-75); PLATELET COUNT 367 10^3/uL (130-400); WHITE BLOOD COUNT 8.6 10^3/uL (4.3-11.0)
[2021-08-11 08:34] LABS: ALBUMIN 4.1 GM/DL (3.2-4.5); POTASSIUM 3.6 MMOL/L (3.6-5.0)
[2021-08-11 08:35] LABS: CALCIUM 9.6 MG/DL (8.5-10.1)
[2021-08-11 08:36] LABS: TOTAL PROTEIN 7.1 GM/DL (6.4-8.2)
[2021-08-11 08:38] LABS: BILIRUBIN,TOTAL 0.5 MG/DL (0.1-1.0)
[2021-08-11 08:40] LABS: CREATININE SERUM 0.9 MG/DL (0.60-1.30)
[2021-08-11] MEDS: metFORMIN 500 MG (GLUCOPHAGE) TAB PO SCH ×2 (08:56→17:53)
[2021-08-11] MEDS: DOCUSATE SODIUM 100 MG (COLACE) CAP PO SCH ×2 (08:56→21:01)
[2021-08-11] MEDS: SENNA W/DOCUSATE (SENOKOT S) TABLET PO SCH ×2 (08:56→21:17)
[2021-08-11] MEDS: amLODIPine 10 MG (NORVASC) TAB PO SCH (08:57)
[2021-08-11] MEDS: lisINopril 5 MG (PRINIVIL) TABLET PO SCH (08:57)
[2021-08-11] MEDS: CIPROFLOXACIN 500 MG (CIPRO) TABLET PO SCH ×2 (08:57→21:02)
[2021-08-11] MEDS: ASPIRIN E.C. 81 MG (ECOTRIN) TAB PO SCH (08:57)
[2021-08-11] MEDS: CLOPIDOGREL 75 MG (PLAVIX) TABLET PO SCH (08:58)
[2021-08-11] MEDS: MULTIVIT W/MINERALS TAB (THERAGRAN M) PO SCH (08:58)
[2021-08-11] MEDS: FINASTERIDE (PROSCAR) 5 MG TAB PO SCH (08:58)
[2021-08-11] MEDS: polyethylene glycoL POWDER 17 GM (MIRALAX) PACK PO SCH ×2 (09:07→21:17)
--- NOTE | 2021-08-11 09:08 | Occupational Ther Daily Note ---
OT Current Status-Daily Note Subjective Pt alert, lying in bed. Pt agrees to therapy. No c/o pain. Pt is very anxious when transferring. Co-treat with PT([id number]), skills of 2 clinicians required to decrease fall risk, increase all mobility for daily tasks and increase ROM of R UE. PT focusing on transfers, standing balance, and B LE exercises while OT focusing on ADLs, R UE ROM and functional transfers. Mental Status/Objective Patient Orientation: Person, Place, Time, Situation ADL-Treatment Pt declines shower at this time, agrees to sponge bath. After set up, pt able to complete chest, abdomen, steven area and upper legs with SBA then assist to cleanse under R/L arm, buttocks (leaning to side) and lower legs/feet. Pt able to doff shirt by self then required education and assistance to don shirt. Assist x2 to complete lower body dressing then max A for footwear. Therapy Code Descriptions/Definitions Functional [place] Measure: 0=Not Assessed/NA 4=Minimal Assistance 1=Total Assistance 5=Supervision or Setup 2=Maximal Assistance 6=Modified [place] 3=Moderate Assistance 7=Complete IndependenceSCALE: Activities may be completed with or without assistive devices. 7-Lendlheyqg-vvthinr completes the activity by him/herself with no assistance from a helper. 5-Set-up or Clean-up Assistance-helper sets up or cleans up; patient completes activity. [place] assists only prior to or following the activity. 4-Supervision or Touching Assistance-helper provides verbal cues and/or touching/steadying and/or contact guard assistance as patient completes activity. Assistance may be provided throughout the activity or intermittently. 3-Partial/Moderate Assistance-helper does LESS THAN HALF the effort. [place] lifts, holds or supports trunk or limbs, but provides less than half the effort. 2-Substantial/Maximal Assistance-helper does MORE THAN HALF the effort. [place] lifts or holds trunk or limbs and provides more than half the effort. 2-Eagvugjkj-cqbgcc does ALL the effort. Patient does none of the effort to complete the activity. Or, the assistance of 2 or more helpers is required for the patient to complete the activity. If activity was not attempted, code reason: 7-Patient Refused. 9-Not Applicable-not attempted and the patient did not perform the activity before the current illness, exacerbation or injury. 10-Not Attempted due to Environmental Limitations-(lack of equipment, weather restraints, etc.). 88-Not Attempted due to Medical Conditions or Safety Concerns. Eating (QC): 5 Shower/Bathe Self (QC): 2 Upper Body Dressing (QC): 3 (mod A) Lower Body Dressing (QC): 1 On/Off Footwear: 2 Toileting Hygiene (QC): 1 (Due to anxiety with new environment, pt would require assist x2 to complete.) Toilet Transfer (QC): 3 Other Treatment Pt working on SPT and EOB <--> supine. Pt is able to complete SPT with min A to CGA if transfer is taken slowly and follows pt's routine. Pt required assistance for bed mobility and uses bed rails and HOB elevated. Passive stretch to increase AROM and decrease tightness in R UE while in supine. After therapy, pt lying in bed with call light/phone in reach. All needs met. OT Short Term Goals Short Term Goals Time Frame: Aug 20, 2021 Eatin Oral hygiene: 5 Toileting hygiene: 2 Shower/bathe self: 2 Upper body dressin Lower body dressin Putting on/taking off footwear: 2 OT Shelter Goals [place] Erector Goals Time Frame: Sep 06, 2021 Eating (QC): 5 Oral Hygiene (QC): 5 Toileting Hygiene (QC): 4 Shower/Bathe Self (QC): 3 Upper Body Dressing (QC): 3 Lower Body Dressing (QC): 3 On/Off Footwear (QC): 3 1=Demonstrate adherence to instructed precautions during ADL tasks. 2=Patient will verbalize/demonstrate understanding of assistive devices/modifications for ADL. 3=Patient will improve strength/tolerance for activity to enable patient to perform ADL's. OT Education/Plan Problem List/Assessment Assessment: Decreased UE Strength, Impaired Bed Mobility, Impaired Funct Balance, Impaired Self-Care Skills, Restricted Funct UE ROM Discharge Recommendations Plan/Recommendations: Continue POC Treatment Plan/Plan of Care Patient would benefit from OT for education, treatment and training to promote independence in ADL's, mobility, safety and/or upper extremity function for ADL's. Plan of Care: ADL Retraining, Caregiver Training, Cognitive Retraining, Functional Mobility, Group Exercise/Act as Ind, Orthotic Fitting/Training, UE Funct Exercise/Act, UE Neuromus Re-Ed/Coord, W/C Management Training Treatment Duration: Sep 06, 2021 Frequency: At least 5 of 7 days/Wk (IRF) Estimated Hrs Per Day: 1.5 hours per day (75-90min/day ) Agreement: Yes Rehab Potential: Fair Time/GCodes Start Time: 07:30 Stop Time: 09:00 Total Time Billed (hr/min): 90 Billed Treatment Time 1 visit-ADL 3 (45 min) FA 3 (45 min) co-treat with PT [id number], individual [id number] ROSALEE ESQUIVEL Aug 11, 2021 09:08
--- NOTE | 2021-08-11 09:22 | Consultation-Cardiology ---
HPI-Cardiology Cardiology Consultation Date of Consultation 08/11/21 Date of Admission Time Seen by Provider: 12:30 Indication: PPM, hx of CVA HPI Patient is an 81 y/o male with hx of HTN, HLP, DM, PPM, hx of CVA in the past. Was hospitalized at [facility] for Urosepsis. Currently in IRF d/t increased weakness. Denies any chest pain or dyspnea. Home Medications & Allergies Allergies: Coded Allergies: lovastatin (Verified Adverse Reaction, Unknown, Vomiting, 08/10/21) simvastatin (Verified Adverse Reaction, Unknown, 08/10/21) Home Medication List Reviewed: Yes ODC-Kmpdxv-Udcoiv Hx Patient Social History Marital Status: single Employed/Student: retired Smoking Status: Former Smoker Have you traveled recently?: Yes Alcohol Use?: Yes Past Medical History HTN, HLP, DM, CVA, PPM Family Medical History Significant Family History: No Pertinent Family Hx Family Medical Hx Noncontributory to his current condition Review of Systems-General Review of Systems Constitutional: see HPI, malaise, weakness EENTM: no symptoms reported Respiratory: no symptoms reported Cardiovascular: no symptoms reported Gastrointestinal: no symptoms reported Genitourinary: no symptoms reported Musculoskeletal: back pain Skin: no symptoms reported Psychiatric/Neurological: No Symptoms Reported All Other Systems Reviewed Negative Unless Noted: Yes Reviewed Test Results Reviewed Test Results Lab Laboratory Tests 08/11/21 08:16: White Blood Count 8.6, Red Blood Count 4.13L, Hemoglobin 12.4L, Hematocrit 38L, Mean Corpuscular Volume 92, Mean Corpuscular Hemoglobin 30, Mean Corpuscular Hemoglobin Concent 33, Red Cell Distribution Width 14.8H, Platelet Count 367, Mean Platelet Volume 9.1, Immature Granulocyte % (Auto) 0, Neutrophils (%) (Auto) 59, Lymphocytes (%) (Auto) 24, Monocytes (%) (Auto) 7, Eosinophils (%) (Auto) 9, Basophils (%) (Auto) 1, Neutrophils # (Auto) 5.1, Lymphocytes # (Auto) 2.1, Monocytes # (Auto) 0.6, Eosinophils # (Auto) 0.8H, Basophils # (Auto) 0.1, Immature Granulocyte # (Auto) 0.0, Sodium Level 137, Potassium Level 3.6, Chloride Level 100, Carbon Dioxide Level 23, Anion Gap 14, Blood Urea Nitrogen 15, Creatinine 0.90, Estimat Glomerular Filtration Rate 85, BUN/Creatinine Ratio 17, Glucose Level 189H, Calcium Level 9.6, Corrected Calcium 9.5, Total Bilirubin 0.5, Aspartate Amino Transf (AST/SGOT) 22, Alanine Aminotransferase (ALT/SGPT) 35, Alkaline Phosphatase 106, Total Protein 7.1, Albumin 4.1 Physical Exam Physical Exam Vital Signs Vital Signs - First Documented 08/10/21 13:15 Temp 37.1 Pulse 104 Resp 18 B/P (MAP) 131/63 (85) Pulse Ox 97 O2 Delivery Room Air Capillary Refill : Height, Weight, BMI Height: '" Weight: lbs. oz. kg; 32.03 BMI Method: General Appearance: No Apparent Distress, WD/WN, Chronically ill, Obese Eyes: Bilateral Eye Normal Inspection, Bilateral Eye PERRL HEENT: PERRL/EOMI, Normal ENT Inspection, Pharynx Normal Neck: Full Range of Motion, Normal Inspection, Non Tender, Supple, Carotid Bruit Respiratory: Chest Non Tender, Lungs Clear, Normal Breath Sounds, No Accessory Muscle Use, No Respiratory Distress Cardiovascular: Regular Rate, Rhythm, No Edema, No Gallop, No JVD, No Murmur, Normal Peripheral Pulses Gastrointestinal: Normal Bowel Sounds, No Organomegaly, No Pulsatile Mass, Non Tender, Soft Back: Normal Inspection, No CVA Tenderness, No Vertebral Tenderness Extremity: Normal Capillary Refill, Normal Inspection, Normal Range of Motion, Non Tender, No Calf Tenderness, No Pedal Edema Neurologic/Psychiatric: Alert, Oriented x3, 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 Follows with Dr. Rush. I will try to get records for further review. Hx of CVA with right sided weakness. 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 I will try to obtain copy of records for further review. BPH Extobaccoism Thank you for allowing us to participate in the management of Mr. Burrows. This is Arianna Cormier PA-C, as a scribe for Dr. De La Rosa. Patient was seen and evaluated with Arianna, Zac personally interviewed and examined the patient. He is transferred to acute rehab for debility and generalized weakness after having urosepsis. He has history of hypertension, hyperlipidemia, history of CVA with residual right-sided weakness and permanent pacemaker, Medtronic. Has been following with Dr. Rush, no chest pain or shortness of breath. Restart home medication monitor blood pressure ARIANNA TOBAR Aug 11, 2021 09:22 JOSE D DE LA ROSA MD Aug 11, 2021 12:49
--- NOTE | 2021-08-11 09:43 | Physical Therapy Daily Note ---
PT Daily Note-Current Subjective Pt. agrees to PT OT co Rx. Pt. shares his situation at home for daily living and function and some of his medical history. No c/o pain this Rx. Pain Location: No Pain Reported Mental Status Patient Orientation: Normal For Age Attachments: [place] Catheter Transfers SCALE: Activities may be completed with or without assistive devices. 1-Oubtwdeuvp-jkpytfv completes the activity by him/herself with no assistance from a helper. 5-Set-up or Clean-up Assistance-helper sets up or cleans up; patient completes activity. [place] assists only prior to or following the activity. 4-Supervision or Touching Assistance-helper provides verbal cues and/or touching/steadying and/or contact guard assistance as patient completes activity. Assistance may be provided throughout the activity or intermittently. 3-Partial/Moderate Assistance-helper does LESS THAN HALF the effort. [place] lifts, holds or supports trunk or limbs, but provides less than half the effort. 2-Substantial/Maximal Assistance-helper does MORE THAN HALF the effort. [place] lifts or holds trunk or limbs and provides more than half the effort. 6-Eminovvjo-hzznvk does ALL the effort. Patient does none of the effort to complete the activity. Or, the assistance of 2 or more helpers is required for the patient to complete the activity. If activity was not attempted, code reason: 7-Patient Refused. 9-Not Applicable-not attempted and the patient did not perform the activity before the current illness, exacerbation or injury. 10-Not Attempted due to Environmental Limitations-(lack of equipment, weather restraints, etc.). 88-Not Attempted due to Medical Conditions or Safety Concerns. Roll Left & Right (QC): 4 Sit to Lying (QC): 4 Lying to Sitting/Side of Bed(Q: 3 Sit to Stand (QC): 3 Chair/Pvp-ck-Eowcu Xfer(QC): 4 much attention given this Rx to understanding pts. exact set up at home and simulating it here as much as possible. PT OT required for safety and critical thinking and troubleshooting . Pt. is limited in all modes of mobility and 2 skilled clinicians are required for his Rx at this time, pt. making progress already and this will likely progress to separate therapies soon. Pt. uses unconventional way to TRF but his CVA is over 5 yrs ago and his habits are well established , PT OT both agreeing we will do out best to recreate his situation for TRFs. Pt uses a "pulling up" method and this was recreated with a tall cane stool pt. can pull on depicting his situation. Pt. was successful with this 4 trials this AM Weight Bearing Full Weight Bearing Full Weight Bearing Wheelchair Training Does the Pt Use a Wheelchair?: Yes Wheel 50 ft with 2 turns (QC): 4 Type of Wheelchair: Manual Exercises Supine Ex: Ankle pumps (HC stretches R), Heel Slides, Short Arc Quads, Straight leg raise (HS stretches), Hip abd/add Supine Reps: 12 Treatments PT OT co Rx for above Rx, In gym on mat PT worked on stretchig HC and HS, with rest between and OT intermittently on RUE stretching .pt. in bed after Rx with najera at hand and needs met Assessment Current Status: Good Progress pt. 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 Driller Helper Goals Care Home Goals PT Care Home Goals Time Frame: Aug 31, 2021 Roll Left & Right (QC): 4 (SBA) Sit to Lying (QC): 4 (SBA) Lying-Sitting on Side/Bed(QC): 4 (SBA) Sit to Stand (QC): 4 (SBA) Chair/Uzr-zo-Djbgm Xfer(QC): 4 (SBA) Toilet Transfer (QC): 4 (SBA) Car Transfer (QC): 4 (SBA) Does the Patient Walk: Yes Walk 10 feet (QC): 4 (SBA) Walk 50ft with 2 Turns (QC): 88 Walk 150 ft (QC): 88 Walking 10ft on Uneven Surface: 4 (CGA) 1 Step (curb) (QC): 88 4 Steps (QC): 88 12 Steps (QC): 88 Picking up an Object (QC): 88 Wheel 50 feet with 2 turns (QC: 6 Wheel 150 feet: 6 PT Plan Treatment/Plan Treatment Plan: Continue Plan of Care Treatment Plan: Bed Mobility, Education, Functional Activity Ki, Functional Strength, Group Therapy, Gait, Safety, Therapeutic Exercise, Transfers Treatment Duration: Aug 31, 2021 Frequency: At least 5 of 7 days/Wk (IRF) Estimated Hrs Per Day: 1.5 hours per day Patient and/or Family Agrees t: Yes Safety Risks/Education Patient Education: Transfer Techniques, Correct Positioning, W/C Management, Disease Process, Safety Issues Teaching Recipient: Patient Teaching Methods: Demonstration, Discussion Response to Teaching: Verbalize Understanding, Return Demonstration, Reinforcement Needed Time/GCodes Time In: 800 Time Out: 900 Total Billed Treatment Time: 60 Total Billed Treatment 1,WC15m,EX20m,FA25 SAUMYA REYES RELASTER Aug 11, 2021 09:43
--- NOTE | 2021-08-11 10:32 | ST Cognitive Linguistic Eval ---
Speech Evaluation-General Medical Diagnosis Debility Onset Date: August 04, 2021 Therapy Diagnosis Therapy Diagnosis: Mild Neurcognitive Impairment Precautions Precautions: Fall Precautions/Isolations: Fall Prevention, Standard Precautions Referral Referring Physician: Dr. Kenna Medley Reason for Referral: Evaluation/Treatment Medical History Pertinent Medical History: CVA (x2 with R side residual weakness), DM, HTN Current History The patient is an 81 year-old male with a past medical history of high choleste rol, HTN, stroke, and diabetes, who presented to [facility] with an UTI and hyponatremia. Reviewed History: Yes Social History Current Living Status: Children (daughter) Speech PLF-Current Status Prior Level of Function The patient denied prior or current challenges with his speech, language, cognition or swallowing. Per patient, his cognitive linguistic skills are at baseline. Subjective The patient was seated upright in his bed, awake and alert upon entrance to his room by the clinician. The patient greeted the clinician appropriately and was agreeable to participation in the cognitive linguistic treatment session. Language Eval: Auditory Comprehends Simple Yes/No Ques: Functional Indent/Objects Multiple Cooper: Functional Ident/Pics in Multiple Cooper: Functional Follows 1-Step Commands: Functional Follows General Conversations: Functional Language Eval: Verbal Language Completes Spontaneous Greeting: Functional Produces Auto, Serial Info: Functional Imitates Simple Words/Phrases: Functional Word Finding: Mild Requests Basic Needs: Functional States Basic Personal Info: Functional Language Evaluation: Reading Follows Simple Written Direct: Functional Language Evaluation: Writing Writes to Simple Dictation: Functional Cognitive Patient Orientation The patient was independently oriented to month, day of week, date, and year. Objective Cognitive Domain Attention: WNL Memory: Mild Problem Solving: Mild Executive Functions: Mild Visuospatial Skills: Mild Composite Severity Rating: Mild Objective Formal/Standardized Tests [facility] Mental Status Exam (UMS) Results The patient demonstrated a result of +24/30 on the SLUMS correlating to a mild neurocognitive impairment. Oral Motor/Speech Production The patient does not demonstrate dysarthria or apraxia of speech at this time. The patient is 100% intelligible in known and unknown contexts. Impression The patient demonstrated a mild impairment in memory and word-finding. While patient reports he is performing at baseline function, the clinician encouraged the patient to complete specific functional memory exercises that may improve safety at home. The patient agreed with the recommendation and will received skilled cognitive therapy throughout his time on ARU. Speech Patient Assess Expression of Ideas/Wants: Exhibits (3) Understanding Verbal Content: Usually Understands (3) Brief Interview-Mental Status: Yes Repetition of Three Words: Three (3) Temporal Orientation: Year: Correct (3) Temporal Orientation: Month: Accurate within 5 days(2) Temporal Orientation: Day: Correct (1) Recall : Wear to say "Sock": Yes, no cue required (2) Recall : Color: Yes, no cue required (2) Recall : Bed: Yes,after cueing (1) Memory/Recall Ability: Current season, That he or she is in a hsp/hsp unit Speech Short Term Goals Short Term Goals Short Term Goals 1. The patient will display 90% accuracy with memory exercises and strategies with mild clinician verbal cueing. Time Frame-STG: One Week. Speech Host Goals Fpc Goals 1. The patient will display improved cognitive linguistic skills for safe discharge to the least restrictive environment. Time Frame: Two Weeks. Speech-Plan Treatment Plan Speech Therapy Treatment Plan: Continue Plan of Care Treatment Duration: Aug 25, 2021 Frequency: Modified Program (IRF) (Three to five times per week.) Estimated Hrs Per Day: .5 hour per day Rehab Potential: Fair Pt/Family Agrees to Plan: Yes Safety Risks/Education Teaching Recipient: Patient Teaching Methods: Discussion Response to Teaching: Reinforcement Needed Education Topics Provided: Speech Pathology Plan of CareELANA results Time Speech Therapy Time In: 09:00 Speech Therapy Time Out: 09:30 Total Billed Time: 30 Billed Treatment Time 1, CARLOS ZUÑIGA ELIZABETH ST Aug 11, 2021 10:32
--- NOTE | 2021-08-11 11:34 | Physical Therapy Daily Note ---
PT Daily Note-Current Subjective Agreeable to Ex in bed. Pt. requests his supra pubic cath be cleaned at his skin and he requests a protein shake. This was relayed to nursing. Pain Location: No Pain Reported Mental Status Patient Orientation: Normal For Age Attachments: Suprapubic Catheter Transfers SCALE: Activities may be completed with or without assistive devices. 4-Lhzyxnehoh-qrsswtt completes the activity by him/herself with no assistance from a helper. 5-Set-up or Clean-up Assistance-helper sets up or cleans up; patient completes activity. [place] assists only prior to or following the activity. 4-Supervision or Touching Assistance-helper provides verbal cues and/or touching/steadying and/or contact guard assistance as patient completes activity. Assistance may be provided throughout the activity or intermittently. 3-Partial/Moderate Assistance-helper does LESS THAN HALF the effort. [place] lifts, holds or supports trunk or limbs, but provides less than half the effort. 2-Substantial/Maximal Assistance-helper does MORE THAN HALF the effort. [place] lifts or holds trunk or limbs and provides more than half the effort. 8-Tsixxgdss-oqencr does ALL the effort. Patient does none of the effort to complete the activity. Or, the assistance of 2 or more helpers is required for the patient to complete the activity. If activity was not attempted, code reason: 7-Patient Refused. 9-Not Applicable-not attempted and the patient did not perform the activity be fore the current illness, exacerbation or injury. 10-Not Attempted due to Environmental Limitations-(lack of equipment, weather restraints, etc.). 88-Not Attempted due to Medical Conditions or Safety Concerns. rolling left and right min Weight Bearing Full Weight Bearing Full Weight Bearing Exercises Supine Ex: Bridging, Ankle pumps, Quad Set, Rolling, Glut sets, Heel Slides, Scooting, Straight leg raise, Hip abd/add Supine Reps: 20 Treatments assistance required for some ex Assessment Current Status: Good Progress fatigues with Rx PT Short Term Goals Short Term Goals Time Frame: Aug 17, 2021 Roll Left & Right: 3 (Ed) Sit to lyin (Ed) Lying to sitting on side of be: 3 (Ed) Sit to stand: 4 (CGA) Chair/imt-md-unqod transfer: 4 (CGA) Walk 10 feet: 4 (CGA) PT Custodial Goals Institutional Cook Goals PT Institutional Cook Goals Time Frame: Aug 31, 2021 Roll Left & Right (QC): 4 (SBA) Sit to Lying (QC): 4 (SBA) Lying-Sitting on Side/Bed(QC): 4 (SBA) Sit to Stand (QC): 4 (SBA) Chair/Nfc-fp-Iymda Xfer(QC): 4 (SBA) Toilet Transfer (QC): 4 (SBA) Car Transfer (QC): 4 (SBA) Does the Patient Walk: Yes Walk 10 feet (QC): 4 (SBA) Walk 50ft with 2 Turns (QC): 88 Walk 150 ft (QC): 88 Walking 10ft on Uneven Surface: 4 (CGA) 1 Step (curb) (QC): 88 4 Steps (QC): 88 12 Steps (QC): 88 Picking up an Object (QC): 88 Wheel 50 feet with 2 turns (QC: 6 Wheel 150 feet: 6 PT Plan Treatment/Plan Treatment Plan: Continue Plan of Care Treatment Plan: Bed Mobility, Education, Functional Activity Ki, Functional Strength, Group Therapy, Gait, Safety, Therapeutic Exercise, Transfers Treatment Duration: Aug 31, 2021 Frequency: At least 5 of 7 days/Wk (IRF) Estimated Hrs Per Day: 1.5 hours per day Patient and/or Family Agrees t: Yes Safety Risks/Education Patient Education: Transfer Techniques, Correct Positioning Teaching Recipient: Patient Response to Teaching: Reinforcement Needed Time/GCodes Time In: 1100 Time Out: 1115 Total Billed Treatment Time: 15 Total Billed Treatment 1,EX15m SAUMYA REYES FREIGHT INSPECTOR Aug 11, 2021 11:34
[2021-08-11] MEDS ORDERED: SELENIUM SULFIDE TP PRN (12:45)
[2021-08-11] MEDS ORDERED: PATIENT MAY USE OWN MEDS, ALL MC SCH (12:45)
[2021-08-11] MEDS: RT-ALBUTEROL/IPRATROPIUM 3 ML (DUONEB) VIAL INH SCH ×2 (16:53→20:50)
[2021-08-11] MEDS: TAMSULOSIN 0.4 MG (FLOMAX) CAP PO SCH (17:53)
[2021-08-11] MEDS: [UNRECOGNIZED DRUG - REMARK] PO PRN (18:20)
[2021-08-11 19:19] VITALS: BP 116/69
[2021-08-11] MEDS: TROSPIUM 20 MG (SANCTURA) TAB PO SCH (21:01)
[2021-08-11] MEDS: rOPINIRole 0.25 MG (REQUIP) TAB PO SCH (21:01)
--- NOTE | 2021-08-12 06:17 | PM&R Progress Note ---
Subjective HPI/CC On Admission Date Seen by Provider: Aug 12, 2021 Time Seen by Provider: 12:00 Subjective/Events-last exam 08/12/21: Pt is doing really well Bowels moved today Transfer is working on due to right sided weakness No other new issues 08/11/2021: Pt did pretty well throughout the night Bowels moved last night Overall working on recovering strength Checked meds and labs Labs otherwise stable Review of Systems General: Fatigue, Malaise Neurological: Weakness, Numbness Objective Exam Vital Signs Vital Signs Date Time Temp Pulse Resp B/P (MAP) Pulse Ox O2 Delivery O2 Flow Rate FiO2 08/12/21 19:45 Room Air 08/12/21 19:36 37.3 67 18 110/53 (72) 94 Capillary Refill : General Appearance: No Apparent Distress, WD/WN, Chronically ill, Obese HEENT: PERRL/EOMI, Normal ENT Inspection, Pharynx Normal Neck: Full Range of Motion, Normal Inspection, Non Tender, Supple, Carotid Bruit Respiratory: Chest Non Tender, Lungs Clear, Normal Breath Sounds, No Accessory Muscle Use, No Respiratory Distress Cardiovascular: Regular Rate, Rhythm, No Edema, No Gallop, No JVD, No Murmur, Normal Peripheral Pulses Gastrointestinal: Normal Bowel Sounds, No Organomegaly, No Pulsatile Mass, Non Tender, Soft Back: Normal Inspection, No CVA Tenderness, No Vertebral Tenderness Extremity: Normal Capillary Refill, Normal Inspection, Normal Range of Motion, Non Tender, No Calf Tenderness, No Pedal Edema Neurologic/Psychiatric: Alert, Oriented x3, 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 FIM Transfers Therapy Code Descriptions/Definitions Functional [place] Measure: 0=Not Assessed/NA 4=Minimal Assistance 1=Total Assistance 5=Supervision or Setup 2=Maximal Assistance 6=Modified [place] 3=Moderate Assistance 7=Complete IndependenceSCALE: Activities may be completed with or without assistive devices. 4-Wgunzswaaf-hymrbbt completes the activity by him/herself with no assistance from a helper. 5-Set-up or Clean-up Assistance-helper sets up or cleans up; patient completes activity. [place] assists only prior to or following the activity. 4-Supervision or Touching Assistance-helper provides verbal cues and/or touching/steadying and/or contact guard assistance as patient completes activity. Assistance may be provided throughout the activity or intermittently. 3-Partial/Moderate Assistance-helper does LESS THAN HALF the effort. [place] lifts, holds or supports trunk or limbs, but provides less than half the effort. 2-Substantial/Maximal Assistance-helper does MORE THAN HALF the effort. [place] lifts or holds trunk or limbs and provides more than half the effort. 0-Gshanobpa-brprxz does ALL the effort. Patient does none of the effort to complete the activity. Or, the assistance of 2 or more helpers is required for the patient to complete the activity. If activity was not attempted, code reason: 7-Patient Refused. 9-Not Applicable-not attempted and the patient did not perform the activity before the current illness, exacerbation or injury. 10-Not Attempted due to Environmental Limitations-(lack of equipment, weather restraints, etc.). 88-Not Attempted due to Medical Conditions or Safety Concerns. Roll Left to Right (QC): 4 Sit to Lying (QC): 4 Sit to Stand (QC): 3 Chair/Sqp-gd-Gabtc Xfer(QC): 4 Car Transfer (QC): 3 Gait Training Does the Patient Walk?: Yes Walk 10 feet (QC): 88 Walk 50 ft with 2 Turns(QC): 88 Walk 150 ft (QC): 88 Walking 10ft/uneven surface-QC: 88 Gait Assistive Device: Cane Single Point Wheelchair Training Does the Pt Use a Wheelchair?: Yes Distance: 50' Wheel 50 ft with 2 turns (QC): 4 Wheel 150 ft (QC): 88 Type of Wheelchair: Manual Stair Training 1 Step (curb) (QC): 88 4 Steps (QC): 88 12 Steps (QC): 88 Balance Picking up an Object (QC): 88 ADL-Treatment Eating (QC): 5 Oral Hygiene (QC): 2 (Max A) Shower/Bathe Self (QC): 2 Upper Body Dressing (QC): 3 (mod A) Lower Body Dressing (QC): 1 On/Off Footwear (QC): 2 Toileting Hygiene (QC): 1 (Due to anxiety with new environment, pt would require assist x2 to complete.) Toilet Transfer (QC): 3 Assessment/Plan Assessment and Plan Assess & Plan/Chief Complaint Assessment: Debility Pacemaker Neurogenic bladder s/p UTI catheter associated DM CVA 3 years ago with right sided weakness Advanced age RLS Plan: PT OT per protocol Pain control Home meds Cardiology consult 08/11/21: Supportive care Cardiology appreciated 08/12/21: Monitor closely Complete abx (1) Debility LIBBY LEAL DO Aug 12, 2021 06:17
[2021-08-12] MEDS: metFORMIN 500 MG (GLUCOPHAGE) TAB PO SCH ×2 (06:31→18:01)
[2021-08-12] MEDS: MULTIVIT W/MINERALS TAB (THERAGRAN M) PO SCH (06:31)
[2021-08-12 07:11] VITALS: BP 109/55
--- NOTE | 2021-08-12 08:36 | Occupational Ther Daily Note ---
OT Current Status-Daily Note Subjective Pt alert, lying in bed. Pt agrees to therapy. No c/o pain. Mental Status/Objective Patient Orientation: Person, Place, Time, Situation ADL-Treatment Pt agrees to shower. Min A for supine to EOB with HOB raised. Sat EOB independently. CGA to transfer toward L side holding onto bed rail to w/c. Pt sat at sink to use electric razor. Pt then transferred to shower bench using w/ c and grabbars, CGA. Assist to don/doff lower body clothing. Pt doffs shirt by self, mod A to don. Sitting on bench, pt bathed most of upper body by self after setup then stood using grabbars while assist to cleanse buttocks. CGA to transfer toward R side using grabbar to transfer out of shower. Max A to don socks. Using clinical judgment, pt able to transfer onto toilet CGA then max A to complete hygiene. Therapy Code Descriptions/Definitions Functional [place] Measure: 0=Not Assessed/NA 4=Minimal Assistance 1=Total Assistance 5=Supervision or Setup 2=Maximal Assistance 6=Modified [place] 3=Moderate Assistance 7=Complete IndependenceSCALE: Activities may be completed with or without assistive devices. 5-Ouiwbbujot-thrblao completes the activity by him/herself with no assistance from a helper. 5-Set-up or Clean-up Assistance-helper sets up or cleans up; patient completes activity. [place] assists only prior to or following the activity. 4-Supervision or Touching Assistance-helper provides verbal cues and/or touchin g/steadying and/or contact guard assistance as patient completes activity. Assistance may be provided throughout the activity or intermittently. 3-Partial/Moderate Assistance-helper does LESS THAN HALF the effort. [place] lifts, holds or supports trunk or limbs, but provides less than half the effort. 2-Substantial/Maximal Assistance-helper does MORE THAN HALF the effort. [place] lifts or holds trunk or limbs and provides more than half the effort. 6-Zyplahibs-fgzwby does ALL the effort. Patient does none of the effort to complete the activity. Or, the assistance of 2 or more helpers is required for the patient to complete the activity. If activity was not attempted, code reason: 7-Patient Refused. 9-Not Applicable-not attempted and the patient did not perform the activity before the current illness, exacerbation or injury. 10-Not Attempted due to Environmental Limitations-(lack of equipment, weather restraints, etc.). 88-Not Attempted due to Medical Conditions or Safety Concerns. Eating (QC): 5 Oral Hygiene (QC): 7 Bathing Location: L Upper Leg, R Upper Leg, Chest, Abdomen Shower/Bathe Self (QC): 2 Upper Body Dressing (QC): 3 Lower Body Dressing (QC): 2 On/Off Footwear: 2 Toileting Hygiene (QC): 2 Toilet Transfer (QC): 2 OT/PT cotreat ([id number]), skills of 2 clinicians required to decrease fall risk, increase activity tolerance and all mobility. PT focusing on transfers, ambulation and B LE strengthening while OT focusing on ADLs, R UE placement and functional mobility. Other Treatment See PT notes for transfer and ambulation progress. After session, pt left in care of PT. All needs met. OT Short Term Goals Short Term Goals Time Frame: Aug 20, 2021 Eatin Oral hygiene: 5 Toileting hygiene: 2 Shower/bathe self: 2 Upper body dressin Lower body dressin Putting on/taking off footwear: 2 OT Fdc Goals Director Social Service Goals Time Frame: Sep 06, 2021 Eating (QC): 5 Oral Hygiene (QC): 5 Toileting Hygiene (QC): 4 Shower/Bathe Self (QC): 3 Upper Body Dressing (QC): 3 Lower Body Dressing (QC): 3 On/Off Footwear (QC): 3 1=Demonstrate adherence to instructed precautions during ADL tasks. 2=Patient will verbalize/demonstrate understanding of assistive devices/modifications for ADL. 3=Patient will improve strength/tolerance for activity to enable patient to perform ADL's. OT Education/Plan Problem List/Assessment Assessment: Decreased Activ Tolerance, Decreased UE Strength, Impaired Funct Balance, Impaired Self-Care Skills, Restricted Funct UE ROM Discharge Recommendations Plan/Recommendations: Continue POC Treatment Plan/Plan of Care Patient would benefit from OT for education, treatment and training to promote independence in ADL's, mobility, safety and/or upper extremity function for ADL's. Plan of Care: ADL Retraining, Caregiver Training, Cognitive Retraining, Functional Mobility, Group Exercise/Act as Ind, Orthotic Fitting/Training, UE Funct Exercise/Act, UE Neuromus Re-Ed/Coord, W/C Management Training Treatment Duration: Sep 06, 2021 Frequency: At least 5 of 7 days/Wk (IRF) Estimated Hrs Per Day: 1.5 hours per day (75-90min/day ) Agreement: Yes Rehab Potential: Fair Time/GCodes Start Time: 07:15 Stop Time: 08:30 Total Time Billed (hr/min): 75 Billed Treatment Time 1 visit-ADL 4 (60 min) FA 1 (15 min) co-treat with PT [id number], individual [id number] ROSALEE ESQUIVEL Aug 12, 2021 08:36
--- NOTE | 2021-08-12 08:57 | Physical Therapy Daily Note ---
PT Daily Note-Current Subjective Pt. agrees to PT OT co Rx for ADLs, TRFs, gait , w/c mob and ex. Pt. this date demonstrating more indep for all TRFs and this will be final co Rx unless pt. makes significant decline. Pt. c/o fatigue but no pain. Pt. tries to remember which side of his hosp bed at home he gets in out of and how he arranges things so that we might duplicate this here. Pain Location: No Pain Reported Mental Status Patient Orientation: Normal For Age Attachments: Suprapubic Catheter Transfers SCALE: Activities may be completed with or without assistive devices. 8-Sddyyopjmf-fsrndqx completes the activity by him/herself with no assistance from a helper. 5-Set-up or Clean-up Assistance-helper sets up or cleans up; patient completes activity. [place] assists only prior to or following the activity. 4-Supervision or Touching Assistance-helper provides verbal cues and/or touching/steadying and/or contact guard assistance as patient completes activity. Assistance may be provided throughout the activity or intermittently. 3-Partial/Moderate Assistance-helper does LESS THAN HALF the effort. [place] lifts, holds or supports trunk or limbs, but provides less than half the effort. 2-Substantial/Maximal Assistance-helper does MORE THAN HALF the effort. [place] lifts or holds trunk or limbs and provides more than half the effort. 3-Ijjlqrkex-atsvzn does ALL the effort. Patient does none of the effort to complete the activity. Or, the assistance of 2 or more helpers is required for the patient to complete the activity. If activity was not attempted, code reason: 7-Patient Refused. 9-Not Applicable-not attempted and the patient did not perform the activity before the current illness, exacerbation or injury. 10-Not Attempted due to Environmental Limitations-(lack of equipment, weather restraints, etc.). 88-Not Attempted due to Medical Conditions or Safety Concerns. Roll Left & Right (QC): 4 Sit to Lying (QC): 4 Lying to Sitting/Side of Bed(Q: 3 Sit to Stand (QC): 4 Chair/Yzv-ke-Puaff Xfer(QC): 4 Weight Bearing Full Weight Bearing Full Weight Bearing Gait Training Does the Patient Walk?: Yes Walk 10 feet (QC): 4 Gait Persons Needed: 1 (plus w/c behind) at rail in arauz with w/c being pushed behind and CGA at R side pt ambulated 12 feet x2 with instruction for broader ROB and r foot placement Wheelchair Training Does the Pt Use a Wheelchair?: Yes Wheel 50 ft with 2 turns (QC): 4 pt. fatigues quickly but is able to use bilat LEs to propel this date with better control Exercises Supine Ex: Bridging, Ankle pumps, Quad Set, Rolling, Glut sets, Heel Slides, Scooting, Straight leg raise, Hip abd/add Supine Reps: 15 Treatments co Rx OT for sit to stand from w/c in bath at rail for LE dressing and sit to stand TRFs as well as SPT w/c to Rx table. Above described Rx as well as RLE stretching and AAAROM Assessment Current Status: Good Progress pt. 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 he likely doesnt remember exactly how he achieves this at home so that we might simulate it here PT Short Term Goals Short Term Goals Time Frame: Aug 17, 2021 Roll Left & Right: 3 (Ed) Sit to lyin (Ed) Lying to sitting on side of be: 3 (Ed) Sit to stand: 4 (CGA) Chair/muk-vc-vcuqt transfer: 4 (CGA) Walk 10 feet: 4 (CGA) PT Spice Miller Goals Residential Goals PT Spice Miller Goals Time Frame: Aug 31, 2021 Roll Left & Right (QC): 4 (SBA) Sit to Lying (QC): 4 (SBA) Lying-Sitting on Side/Bed(QC): 4 (SBA) Sit to Stand (QC): 4 (SBA) Chair/Dvc-sp-Sxehg Xfer(QC): 4 (SBA) Toilet Transfer (QC): 4 (SBA) Car Transfer (QC): 4 (SBA) Does the Patient Walk: Yes Walk 10 feet (QC): 4 (SBA) Walk 50ft with 2 Turns (QC): 88 Walk 150 ft (QC): 88 Walking 10ft on Uneven Surface: 4 (CGA) 1 Step (curb) (QC): 88 4 Steps (QC): 88 12 Steps (QC): 88 Picking up an Object (QC): 88 Wheel 50 feet with 2 turns (QC: 6 Wheel 150 feet: 6 PT Plan Treatment/Plan Treatment Plan: Continue Plan of Care Treatment Plan: Bed Mobility, Education, Functional Activity Ki, Functional Strength, Group Therapy, Gait, Safety, Therapeutic Exercise, Transfers Treatment Duration: Aug 31, 2021 Frequency: At least 5 of 7 days/Wk (IRF) Estimated Hrs Per Day: 1.5 hours per day Patient and/or Family Agrees t: Yes Safety Risks/Education Patient Education: Gait Training, Transfer Techniques, Correct Positioning, W/C Management, Disease Process, Safety Issues Teaching Recipient: Patient Teaching Methods: Demonstration, Discussion Response to Teaching: Verbalize Understanding, Return Demonstration, Rein forcement Needed Time/GCodes Time In: 800 Time Out: 900 Total Billed Treatment Time: 60 Total Billed Treatment 1,FA30m,GT10m,EX20m SAUMYA REYES AUTOMOBILE BODY WORKER Aug 12, 2021 08:57
[2021-08-12] MEDS ORDERED: CLOBETASOL PROPIONATE TP SCH (09:00)
[2021-08-12] MEDS ORDERED: COAL TAR TP SCH (09:00)
[2021-08-12] MEDS ORDERED: NON-FORMULARY MEDICATION 1 EA EA (Solifenacin Succinate 10 MG) PO SCH (09:00)
[2021-08-12] MEDS: ASPIRIN E.C. 81 MG (ECOTRIN) TAB PO SCH (09:19)
[2021-08-12] MEDS: DOCUSATE SODIUM 100 MG (COLACE) CAP PO SCH ×2 (09:19→19:37)
[2021-08-12] MEDS: amLODIPine 10 MG (NORVASC) TAB PO SCH (09:19)
[2021-08-12] MEDS: SENNA W/DOCUSATE (SENOKOT S) TABLET PO SCH ×2 (09:19→19:37)
[2021-08-12] MEDS: CLOPIDOGREL 75 MG (PLAVIX) TABLET PO SCH (09:19)
[2021-08-12] MEDS: lisINopril 5 MG (PRINIVIL) TABLET PO SCH (09:19)
[2021-08-12] MEDS: CIPROFLOXACIN 500 MG (CIPRO) TABLET PO SCH ×2 (09:19→19:37)
[2021-08-12] MEDS: FINASTERIDE (PROSCAR) 5 MG TAB PO SCH (09:19)
[2021-08-12] MEDS: TROSPIUM 20 MG (SANCTURA) TAB PO SCH ×2 (09:20→19:37)
[2021-08-12] MEDS: polyethylene glycoL POWDER 17 GM (MIRALAX) PACK PO SCH ×2 (09:20→19:38)
[2021-08-12] MEDS: MIRABEGRON 25 MG TAB (MYRBETRIQ) PO SCH (09:21)
[2021-08-12] MEDS: RT-ALBUTEROL/IPRATROPIUM 3 ML (DUONEB) VIAL INH SCH ×3 (09:26→21:55)
--- NOTE | 2021-08-12 10:57 | Cardiology Progress Note ---
Subjective Date Seen by Provider: Aug 12, 2021 Time Seen by Provider: 10:56 Subjective/Events-last exam Patient was seen at bedside, laying down comfortably, having generalized wea kness Review of Systems General: No Chills, No Night Sweats; Fatigue, Malaise; No Appetite, No Other HEENT: No Head Aches, No Visual Changes, No Eye Pain, No Ear Pain, No Dysphasia, No Sinus Congestion, No Post Nasal Drip, No Sore Throat, No Other Pulmonary: Dyspnea; No Cough, No Pleuritic Chest Pain, No Other Cardiovascular: No: Chest Pain, Palpitations, Orthopnea, Paroxysmal Noc. Dyspnea, Edema, Lt Headedness, Other Objective-Cardiology Exam Last Set of Vital Signs Vital Signs 08/12/21 08/12/21 07:11 09:00 Temp 37.0 Pulse 52 Resp 18 B/P (MAP) 109/55 (73) Pulse Ox 95 O2 Delivery Room Air I&O Intake and Output 08/12/21 00:00 Intake Total 1300 ml Output Total 950 ml Balance 350 ml Intake Oral 1300 ml Output Urine Total 950 ml General: Alert, Oriented X3, Cooperative HEENT: Atraumatic, PERRLA Neck: Supple, No JVD, No Thyromegaly Lungs: Clear to Auscultation, Normal Air Movement Heart: Regular Rate, Normal S1, Normal S2, No Murmurs Abdomen: Normal Bowel Sounds, Soft, No Tenderness, No Hepatosplenomegaly, No Masses Extremities: No Clubbing, No Cyanosis, No Edema, Normal Pulses, No Tenderness/Swelling Skin: No Rashes, No Breakdown, No Significant Lesion Neuro: Normal Speech, Normal Tone, Sensation Intact Psych/Mental Status: Mental Status NL, Mood NL Results Lab Laboratory Tests Test 08/11/21 11:23 Range/Units Glucometer 104 70-110 MG/DL A/P-Cardiology Admission Diagnosis PPM CVA HTN HLP Assessment/Plan HTN, controlled, continue to monitor. 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 Follows with Dr. Rush. I will interrogate device Hx of CVA with right sided weakness. 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 I will try to obtain copy of records for further review. BPH Extobaccoism JOSE D GANNON MD Aug 12, 2021 10:57
--- NOTE | 2021-08-12 11:07 | Speech Therapy Daily Note ---
Speech Daily Progress Note Subjective Date Seen by Provider: Aug 12, 2021 Time Seen by Provider: 09:00 The patient was lying in bed, awake and alert upon entrance to his room by the clinician. The patient greeted the clinician appropriately and was agreeable to participation in the cognitive linguistic treatment session. To note, the patient consumed multiple pills with thin liquids without s/s of suspected aspiration. Objective - Orientation: The patient was independently oriented to self, month, day of week, date, and year. The patient required one verbal cue from the clinician to accurately identify his location, stating his prior hospital - Functional Recall, Plan of Care, Home Environment: The patient participated in structured conversation involving functional recall of the daily activities, his current home environment, and his plan of care. The patient completed functional recall with high accuracy. The patient stated he currently lives with his daughter in [place]. The patient's daughter is an in-home caregiver and provides multiple aspects of support for the patient. Assessment Assessment Current Status: Good Progress Treatment Plan Continue Plan of Care Speech Short Term Goals Short Term Goals Short Term Goals 1. The patient will display 90% accuracy with memory exercises and strategies with mild clinician verbal cueing. Time Frame-STG: One Week. Speech Nursing Home Goals Nursing Home Goals 1. The patient will display improved cognitive linguistic skills for safe discharge to the least restrictive environment. Time Frame: Two Weeks. Speech-Plan Treatment Plan Speech Therapy Treatment Plan: Continue Plan of Care Treatment Duration: Aug 11, 2021 Frequency: Modified Program (IRF) Estimated Hrs Per Day: Other Rehab Potential: Fair Safety Risks/Education Teaching Recipient: Patient Teaching Methods: Discussion Response to Teaching: Verbalize Understanding Education Topics Provided: Speech Pathology Plan of Care Time Speech Therapy Time In: 09:00 Speech Therapy Time Out: 09:30 Total Billed Time: 30 Billed Treatment Time 1CARLOS ELIZABETH ST Aug 12, 2021 11:07
--- NOTE | 2021-08-12 11:28 | Physical Therapy Daily Note ---
PT Daily Note-Current Subjective Pt. requests to ex in supine, pt. sherie he was indep in out a hosp bed at home and did not raise the head up to get in out but cannot remember how or which side he worked from Pain Location: No Pain Reported Transfers SCALE: Activities may be completed with or without assistive devices. 7-Mgyzavynxz-rjhlmta completes the activity by him/herself with no assistance from a helper. 5-Set-up or Clean-up Assistance-helper sets up or cleans up; patient completes activity. [place] assists only prior to or following the activity. 4-Supervision or Touching Assistance-helper provides verbal cues and/or touching/steadying and/or contact guard assistance as patient completes activity. Assistance may be provided throughout the activity or intermittently. 3-Partial/Moderate Assistance-helper does LESS THAN HALF the effort. [place] lifts, holds or supports trunk or limbs, but provides less than half the effort. 2-Substantial/Maximal Assistance-helper does MORE THAN HALF the effort. [place] lifts or holds trunk or limbs and provides more than half the effort. 1-Cywirikvs-qlxddf does ALL the effort. Patient does none of the effort to complete the activity. Or, the assistance of 2 or more helpers is required for the patient to complete the activity. If activity was not attempted, code reason: 7-Patient Refused. 9-Not Applicable-not attempted and the patient did not perform the activity before the current illness, exacerbation or injury. 10-Not Attempted due to Environmental Limitations-(lack of equipment, weather restraints, etc.). 88-Not Attempted due to Medical Conditions or Safety Concerns. roll left right min to CGA Weight Bearing Full Weight Bearing Full Weight Bearing Exercises Supine Ex: Bridging, Ankle pumps, Quad Set, Rolling, Glut sets, Heel Slides, Short Arc Quads, Scooting, Straight leg raise, Hip abd/add Supine Reps: 20 Assessment Current Status: Good Progress PT Short Term Goals Short Term Goals Time Frame: Aug 17, 2021 Roll Left & Right: 3 (Ed) Sit to lyin (Ed) Lying to sitting on side of be: 3 (Ed) Sit to stand: 4 (CGA) Chair/lhj-ie-lzemu transfer: 4 (CGA) Walk 10 feet: 4 (CGA) PT Usp Goals Usp Goals PT Public Relations Coordinator Goals Time Frame: Aug 31, 2021 Roll Left & Right (QC): 4 (SBA) Sit to Lying (QC): 4 (SBA) Lying-Sitting on Side/Bed(QC): 4 (SBA) Sit to Stand (QC): 4 (SBA) Chair/Azi-ez-Emcik Xfer(QC): 4 (SBA) Toilet Transfer (QC): 4 (SBA) Car Transfer (QC): 4 (SBA) Does the Patient Walk: Yes Walk 10 feet (QC): 4 (SBA) Walk 50ft with 2 Turns (QC): 88 Walk 150 ft (QC): 88 Walking 10ft on Uneven Surface: 4 (CGA) 1 Step (curb) (QC): 88 4 Steps (QC): 88 12 Steps (QC): 88 Picking up an Object (QC): 88 Wheel 50 feet with 2 turns (QC: 6 Wheel 150 feet: 6 PT Plan Treatment/Plan Treatment Plan: Continue Plan of Care Treatment Plan: Bed Mobility, Education, Functional Activity Ki, Functional Strength, Group Therapy, Gait, Safety, Therapeutic Exercise, Transfers Treatment Duration: Aug 31, 2021 Frequency: At least 5 of 7 days/Wk (IRF) Estimated Hrs Per Day: 1.5 hours per day Patient and/or Family Agrees t: Yes Safety Risks/Education Patient Education: Correct Positioning Time/GCodes Time In: 1105 Time Out: 1120 Total Billed Treatment Time: 15 Total Billed Treatment 1,EX15m SAUMYA REYES BOTTLED BEVERAGE INSPECTOR Aug 12, 2021 11:28
[2021-08-12] MEDS: [UNRECOGNIZED DRUG - REMARK] PO PRN (16:40)
[2021-08-12] MEDS: TAMSULOSIN 0.4 MG (FLOMAX) CAP PO SCH (18:02)
[2021-08-12 19:36] VITALS: BP 110/53
[2021-08-12] MEDS: rOPINIRole 0.25 MG (REQUIP) TAB PO SCH (19:37)
[2021-08-13] MEDS: metFORMIN 500 MG (GLUCOPHAGE) TAB PO SCH ×2 (06:28→17:11)
[2021-08-13] MEDS: MULTIVIT W/MINERALS TAB (THERAGRAN M) PO SCH (06:28)
[2021-08-13 07:22] VITALS: BP 101/53
[2021-08-13] MEDS: TROSPIUM 20 MG (SANCTURA) TAB PO SCH ×2 (07:26→20:14)
[2021-08-13] MEDS: lisINopril 5 MG (PRINIVIL) TABLET PO SCH (07:27)
[2021-08-13] MEDS: MIRABEGRON 25 MG TAB (MYRBETRIQ) PO SCH (07:27)
[2021-08-13] MEDS: CLOPIDOGREL 75 MG (PLAVIX) TABLET PO SCH (07:27)
[2021-08-13] MEDS: ASPIRIN E.C. 81 MG (ECOTRIN) TAB PO SCH (07:27)
[2021-08-13] MEDS: amLODIPine 10 MG (NORVASC) TAB PO SCH (07:28)
[2021-08-13] MEDS: CIPROFLOXACIN 500 MG (CIPRO) TABLET PO SCH ×2 (07:28→20:14)
[2021-08-13] MEDS: FINASTERIDE (PROSCAR) 5 MG TAB PO SCH (07:28)
[2021-08-13] MEDS: RT-ALBUTEROL/IPRATROPIUM 3 ML (DUONEB) VIAL INH SCH ×3 (07:58→21:21)
[2021-08-13] MEDS: SENNA W/DOCUSATE (SENOKOT S) TABLET PO SCH ×2 (09:13→20:17)
[2021-08-13] MEDS: DOCUSATE SODIUM 100 MG (COLACE) CAP PO SCH ×2 (09:13→20:17)
[2021-08-13] MEDS: polyethylene glycoL POWDER 17 GM (MIRALAX) PACK PO SCH ×2 (09:13→20:17)
--- NOTE | 2021-08-13 10:02 | PM&R Progress Note ---
Subjective HPI/CC On Admission Date Seen by Provider: Aug 13, 2021 Subjective/Events-last exam 08/13/2021: Patient doing well Slept well last night Check meds labs No falls 08/12/21: Pt is doing really well Bowels moved today Transfer is working on due to right sided weakness No other new issues 08/11/2021: Pt did pretty well throughout the night Bowels moved last night Overall working on recovering strength Checked meds and labs Labs otherwise stable Review of Systems General: Fatigue, Malaise Objective Exam Vital Signs Vital Signs Date Time Temp Pulse Resp B/P (MAP) Pulse Ox O2 Delivery O2 Flow Rate FiO2 08/13/21 09:36 Room Air 08/13/21 08:01 98 08/13/21 07:22 36.6 84 18 101/53 (69) Capillary Refill : General Appearance: No Apparent Distress, WD/WN, Chronically ill, Obese HEENT: PERRL/EOMI, Normal ENT Inspection, Pharynx Normal Neck: Full Range of Motion, Normal Inspection, Non Tender, Supple, Carotid Bruit Respiratory: Chest Non Tender, Lungs Clear, Normal Breath Sounds, No Accessory Muscle Use, No Respiratory Distress Cardiovascular: Regular Rate, Rhythm, No Edema, No Gallop, No JVD, No Murmur, Normal Peripheral Pulses Gastrointestinal: Normal Bowel Sounds, No Organomegaly, No Pulsatile Mass, Non Tender, Soft Back: Normal Inspection, No CVA Tenderness, No Vertebral Tenderness Extremity: Normal Capillary Refill, Normal Inspection, Normal Range of Motion, Non Tender, No Calf Tenderness, No Pedal Edema Neurologic/Psychiatric: Alert, Oriented x3, refinery operator crude unit II-XII Norm as Tested, Depressed Affect, Motor Weakness (right sided chronic, generalized all extremities) Skin: Normal Color, Warm/Dry Lymphatic: No Adenopathy Results/Procedures Lab Patient resulted labs reviewed. FIM Transfers Therapy Code Descriptions/Definitions Functional [place] Measure: 0=Not Assessed/NA 4=Minimal Assistance 1=Total Assistance 5=Supervision or Setup 2=Maximal Assistance 6=Modified [place] 3=Moderate Assistance 7=Complete IndependenceSCALE: Activities may be completed with or without assistive devices. 7-Egipegpyjl-rztgfte completes the activity by him/herself with no assistance from a helper. 5-Set-up or Clean-up Assistance-helper sets up or cleans up; patient completes activity. [place] assists only prior to or following the activity. 4-Supervision or Touching Assistance-helper provides verbal cues and/or touching/steadying and/or contact guard assistance as patient completes activity. Assistance may be provided throughout the activity or intermittently. 3-Partial/Moderate Assistance-helper does LESS THAN HALF the effort. [place] lifts, holds or supports trunk or limbs, but provides less than half the effort. 2-Substantial/Maximal Assistance-helper does MORE THAN HALF the effort. [place] lifts or holds trunk or limbs and provides more than half the effort. 4-Fzktlizst-trrpsq does ALL the effort. Patient does none of the effort to co mplete the activity. Or, the assistance of 2 or more helpers is required for the patient to complete the activity. If activity was not attempted, code reason: 7-Patient Refused. 9-Not Applicable-not attempted and the patient did not perform the activity before the current illness, exacerbation or injury. 10-Not Attempted due to Environmental Limitations-(lack of equipment, weather restraints, etc.). 88-Not Attempted due to Medical Conditions or Safety Concerns. Roll Left to Right (QC): 4 Sit to Lying (QC): 4 Sit to Stand (QC): 4 Chair/Fur-db-Xfvoh Xfer(QC): 4 Car Transfer (QC): 3 Gait Training Does the Patient Walk?: Yes Walk 10 feet (QC): 4 Walk 50 ft with 2 Turns(QC): 88 Walk 150 ft (QC): 88 Walking 10ft/uneven surface-QC: 88 Gait Persons Needed: 1 (plus w/c behind) Gait Assistive Device: Cane Single Point Wheelchair Training Does the Pt Use a Wheelchair?: Yes Distance: 50' Wheel 50 ft with 2 turns (QC): 4 Wheel 150 ft (QC): 88 Type of Wheelchair: Manual Stair Training 1 Step (curb) (QC): 88 4 Steps (QC): 88 12 Steps (QC): 88 Balance Picking up an Object (QC): 88 ADL-Treatment Eating (QC): 5 Oral Hygiene (QC): 7 Bathing Location: L Upper Leg, R Upper Leg, Chest, Abdomen Shower/Bathe Self (QC): 2 Upper Body Dressing (QC): 3 Lower Body Dressing (QC): 2 On/Off Footwear (QC): 2 Toileting Hygiene (QC): 2 Toilet Transfer (QC): 2 Assessment/Plan Assessment and Plan Assess & Plan/Chief Complaint Assessment: Debility Pacemaker Neurogenic bladder s/p UTI catheter associated DM CVA 3 years ago with right sided weakness Advanced age RLS Plan: PT OT per protocol Pain control Home meds Cardiology consult 08/11/21: Supportive care Cardiology appreciated 08/12/21: Monitor closely Complete abx 08/13/2021: Supportive care Aggressive rehab (1) Debility LIBBY LEAL DO Aug 13, 2021 10:02
--- NOTE | 2021-08-13 10:32 | Physical Therapy Daily Note ---
PT Daily Note-Current Subjective Pt presents supine in bed, does not c/o pain but reports he is "tired as hell." Only agreeable to supine exercises this date. Appearance Following session, pt reclined in bed, with bed in a "seated position." Pt has call light, tray table and phone within reach, all needs met at this time Mental Status Patient Orientation: Person, Place Transfers SCALE: Activities may be completed with or without assistive devices. 2-Yeixgvweve-cqjroxi completes the activity by him/herself with no assistance from a helper. 5-Set-up or Clean-up Assistance-helper sets up or cleans up; patient completes activity. [place] assists only prior to or following the activity. 4-Supervision or Touching Assistance-helper provides verbal cues and/or touch ing/steadying and/or contact guard assistance as patient completes activity. Assistance may be provided throughout the activity or intermittently. 3-Partial/Moderate Assistance-helper does LESS THAN HALF the effort. [place] lifts, holds or supports trunk or limbs, but provides less than half the effort. 2-Substantial/Maximal Assistance-helper does MORE THAN HALF the effort. [place] lifts or holds trunk or limbs and provides more than half the effort. 2-Bnqkrnnld-vgkfts does ALL the effort. Patient does none of the effort to complete the activity. Or, the assistance of 2 or more helpers is required for the patient to complete the activity. If activity was not attempted, code reason: 7-Patient Refused. 9-Not Applicable-not attempted and the patient did not perform the activity before the current illness, exacerbation or injury. 10-Not Attempted due to Environmental Limitations-(lack of equipment, weather restraints, etc.). 88-Not Attempted due to Medical Conditions or Safety Concerns. Weight Bearing Full Weight Bearing Full Weight Bearing Exercises Supine Ex: Bridging, Ankle pumps, Quad Set, Glut sets, Lower trunk rotation, Heel Slides, Straight leg raise, Hip abd/add Supine Reps: 20 Assessment Current Status: Fair Progress Pt struggles with RLE exercises, due to significant weakness. PT Short Term Goals Short Term Goals Time Frame: Aug 17, 2021 Roll Left & Right: 3 (Ed) Sit to lyin (Ed) Lying to sitting on side of be: 3 (Ed) Sit to stand: 4 (CGA) Chair/egj-ht-qthaw transfer: 4 (CGA) Walk 10 feet: 4 (CGA) PT Longterm Goals Longterm Goals PT Director Smb Sales Goals Time Frame: Aug 31, 2021 Roll Left & Right (QC): 4 (SBA) Sit to Lying (QC): 4 (SBA) Lying-Sitting on Side/Bed(QC): 4 (SBA) Sit to Stand (QC): 4 (SBA) Chair/Urv-xx-Qjkai Xfer(QC): 4 (SBA) Toilet Transfer (QC): 4 (SBA) Car Transfer (QC): 4 (SBA) Does the Patient Walk: Yes Walk 10 feet (QC): 4 (SBA) Walk 50ft with 2 Turns (QC): 88 Walk 150 ft (QC): 88 Walking 10ft on Uneven Surface: 4 (CGA) 1 Step (curb) (QC): 88 4 Steps (QC): 88 12 Steps (QC): 88 Picking up an Object (QC): 88 Wheel 50 feet with 2 turns (QC: 6 Wheel 150 feet: 6 PT Plan Problem List Problem List: Activity Tolerance, Functional Strength, Safety, Balance, Gait, Transfer, Bed Mobility, ROM Treatment/Plan Treatment Plan: Continue Plan of Care Treatment Plan: Bed Mobility, Education, Functional Activity Ki, Functional Strength, Group Therapy, Gait, Safety, Therapeutic Exercise, Transfers Treatment Duration: Aug 31, 2021 Frequency: At least 5 of 7 days/Wk (IRF) Estimated Hrs Per Day: 1.5 hours per day Patient and/or Family Agrees t: Yes Time/GCodes Time In: 1020 Time Out: 1030 Total Billed Treatment Time: 10 Total Billed Treatment 1 visit EX (10') NICKIE PALACIO PT Aug 13, 2021 10:32
[2021-08-13] MEDS: [UNRECOGNIZED DRUG - REMARK] PO PRN ×2 (13:36→20:19)
[2021-08-13] MEDS: TAMSULOSIN 0.4 MG (FLOMAX) CAP PO SCH (17:11)
[2021-08-13 20:00] VITALS: BP 116/55
[2021-08-13] MEDS: rOPINIRole 0.25 MG (REQUIP) TAB PO SCH (20:14)
[2021-08-14] MEDS: MULTIVIT W/MINERALS TAB (THERAGRAN M) PO SCH (06:38)
[2021-08-14] MEDS: metFORMIN 500 MG (GLUCOPHAGE) TAB PO SCH ×2 (06:40→17:42)
[2021-08-14 07:57] VITALS: BP 112/64
[2021-08-14] MEDS: CIPROFLOXACIN 500 MG (CIPRO) TABLET PO SCH ×2 (07:59→20:16)
[2021-08-14] MEDS: lisINopril 5 MG (PRINIVIL) TABLET PO SCH (07:59)
[2021-08-14] MEDS: MIRABEGRON 25 MG TAB (MYRBETRIQ) PO SCH (08:00)
[2021-08-14] MEDS: ASPIRIN E.C. 81 MG (ECOTRIN) TAB PO SCH (08:00)
[2021-08-14] MEDS: FINASTERIDE (PROSCAR) 5 MG TAB PO SCH (08:00)
[2021-08-14] MEDS: TROSPIUM 20 MG (SANCTURA) TAB PO SCH ×2 (08:00→20:17)
[2021-08-14] MEDS: amLODIPine 10 MG (NORVASC) TAB PO SCH (08:02)
[2021-08-14] MEDS: DOCUSATE SODIUM 100 MG (COLACE) CAP PO SCH ×2 (09:09→20:17)
[2021-08-14] MEDS: SENNA W/DOCUSATE (SENOKOT S) TABLET PO SCH ×2 (09:09→20:18)
[2021-08-14] MEDS: polyethylene glycoL POWDER 17 GM (MIRALAX) PACK PO SCH ×2 (09:09→20:17)
[2021-08-14] MEDS: CLOPIDOGREL 75 MG (PLAVIX) TABLET PO SCH (09:12)
[2021-08-14] MEDS: RT-ALBUTEROL/IPRATROPIUM 3 ML (DUONEB) VIAL INH SCH ×3 (09:46→22:47)
--- NOTE | 2021-08-14 11:16 | PM&R Progress Note ---
Subjective HPI/CC On Admission Date Seen by Provider: Aug 14, 2021 Time Seen by Provider: 06:00 Subjective/Events-last exam 08/14/2021: Patient doing well No pain reported Transfers are still slow and with a lot of effort 08/13/2021: Patient doing well Slept well last night Check meds labs No falls 08/12/21: Pt is doing really well Bowels moved today Transfer is working on due to right sided weakness No other new issues 08/11/2021: Pt did pretty well throughout the night Bowels moved last night Overall working on recovering strength Checked meds and labs Labs otherwise stable Review of Systems General: Fatigue, Malaise Objective Exam Vital Signs Vital Signs Date Time Temp Pulse Resp B/P (MAP) Pulse Ox O2 Delivery O2 Flow Rate FiO2 08/14/21 15:05 95 Room Air 08/14/21 07:57 36.5 73 18 112/64 (80) Capillary Refill : General Appearance: No Apparent Distress, WD/WN, Chronically ill, Obese HEENT: PERRL/EOMI, Normal ENT Inspection, Pharynx Normal Neck: Full Range of Motion, Normal Inspection, Non Tender, Supple, Carotid Bruit Respiratory: Chest Non Tender, Lungs Clear, Normal Breath Sounds, No Accessory Muscle Use, No Respiratory Distress Cardiovascular: Regular Rate, Rhythm, No Edema, No Gallop, No JVD, No Murmur, Normal Peripheral Pulses Gastrointestinal: Normal Bowel Sounds, No Organomegaly, No Pulsatile Mass, Non Tender, Soft Back: Normal Inspection, No CVA Tenderness, No Vertebral Tenderness Extremity: Normal Capillary Refill, Normal Inspection, Normal Range of Motion, Non Tender, No Calf Tenderness, No Pedal Edema Neurologic/Psychiatric: Alert, Oriented x3, program advocate II-XII Norm as Tested, Depressed Affect, Motor Weakness (right sided chronic, generalized all extremities) Skin: Normal Color, Warm/Dry Lymphatic: No Adenopathy Results/Procedures Lab Patient resulted labs reviewed. FIM Transfers Therapy Code Descriptions/Definitions Functional [place] Measure: 0=Not Assessed/NA 4=Minimal Assistance 1=Total Assistance 5=Supervision or Setup 2=Maximal Assistance 6=Modified [place] 3=Moderate Assistance 7=Complete IndependenceSCALE: Activities may be completed with or without assistive devices. 8-Tezwmgepcp-cspwseh completes the activity by him/herself with no assistance from a helper. 5-Set-up or Clean-up Assistance-helper sets up or cleans up; patient completes activity. [place] assists only prior to or following the activity. 4-Supervision or Touching Assistance-helper provides verbal cues and/or touching/steadying and/or contact guard assistance as patient completes activity. Assistance may be provided throughout the activity or intermittently. 3-Partial/Moderate Assistance-helper does LESS THAN HALF the effort. [place] lifts, holds or supports trunk or limbs, but provides less than half the effort. 2-Substantial/Maximal Assistance-helper does MORE THAN HALF the effort. [place] lifts or holds trunk or limbs and provides more than half the effort. 1-Hcvkugblv-anpjsp does ALL the effort. Patient does none of the effort to comp lete the activity. Or, the assistance of 2 or more helpers is required for the patient to complete the activity. If activity was not attempted, code reason: 7-Patient Refused. 9-Not Applicable-not attempted and the patient did not perform the activity before the current illness, exacerbation or injury. 10-Not Attempted due to Environmental Limitations-(lack of equipment, weather restraints, etc.). 88-Not Attempted due to Medical Conditions or Safety Concerns. Roll Left to Right (QC): 4 Sit to Lying (QC): 4 Sit to Stand (QC): 4 Chair/Hva-in-Acamc Xfer(QC): 4 Car Transfer (QC): 3 Gait Training Does the Patient Walk?: Yes Walk 10 feet (QC): 4 Walk 50 ft with 2 Turns(QC): 88 Walk 150 ft (QC): 88 Walking 10ft/uneven surface-QC: 88 Gait Persons Needed: 1 (plus w/c behind) Gait Assistive Device: Cane Single Point Wheelchair Training Does the Pt Use a Wheelchair?: Yes Distance: 50' Wheel 50 ft with 2 turns (QC): 4 Wheel 150 ft (QC): 88 Type of Wheelchair: Manual Stair Training 1 Step (curb) (QC): 88 4 Steps (QC): 88 12 Steps (QC): 88 Balance Picking up an Object (QC): 88 ADL-Treatment Eating (QC): 5 Oral Hygiene (QC): 7 Bathing Location: L Upper Leg, R Upper Leg, Chest, Abdomen Shower/Bathe Self (QC): 2 Upper Body Dressing (QC): 3 Lower Body Dressing (QC): 2 On/Off Footwear (QC): 2 Toileting Hygiene (QC): 2 Toilet Transfer (QC): 2 Assessment/Plan Assessment and Plan Assess & Plan/Chief Complaint Assessment: Debility Pacemaker Neurogenic bladder s/p UTI catheter associated DM 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
--- NOTE | 2021-08-14 11:40 | Cardiology Progress Note ---
Subjective Date Seen by Provider: Aug 14, 2021 Time Seen by Provider: 11:39 Subjective/Events-last exam Patient was seen at bedside, laying down comfortably, feeling better. Review of Systems General: No Chills, No Night Sweats, No Fatigue, No Malaise, No Appetite, No Other HEENT: No Head Aches, No Visual Changes, No Eye Pain, No Ear Pain, No Dysphasia, No Sinus Congestion, No Post Nasal Drip, No Sore Throat, No Other Pulmonary: No Dyspnea, No Cough, No Pleuritic Chest Pain, No Other Cardiovascular: No: Chest Pain, Palpitations, Orthopnea, Paroxysmal Noc. Dyspnea, Edema, Lt Headedness, Other Objective-Cardiology Exam Last Set of Vital Signs Vital Signs 08/14/21 08/14/21 07:57 09:46 Temp 36.5 Pulse 73 Resp 18 B/P (MAP) 112/64 (80) Pulse Ox 97 O2 Delivery Room Air I&O Intake and Output 08/13/21 23:59 Intake Total 1320 ml Output Total 1000 ml Balance 320 ml Intake Oral 1320 ml Output Urine Total 1000 ml # Bowel Movements 1 General: Alert, Oriented X3, Cooperative HEENT: Atraumatic, PERRLA Neck: Supple, No JVD, No Thyromegaly Lungs: Clear to Auscultation, Normal Air Movement Heart: Regular Rate, Normal S1, Normal S2, No Murmurs Abdomen: Normal Bowel Sounds, Soft, No Tenderness, No Hepatosplenomegaly, No Masses Extremities: No Clubbing, No Cyanosis, No Edema, Normal Pulses, No Tenderness/ Swelling Skin: No Rashes, No Breakdown, No Significant Lesion Neuro: Normal Speech, Normal Tone, Sensation Intact Psych/Mental Status: Mental Status NL, Mood NL A/P-Cardiology Admission Diagnosis PPM CVA HTN HLP Assessment/Plan HTN, controlled, continue to monitor. 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 Follows with Dr. Rush. Continue to monitor Hx of CVA with right sided weakness. 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 I will try to obtain copy of records for further review. BPH Extobaccoism JOSE D GANNON MD Aug 14, 2021 11:40
[2021-08-14] MEDS: TAMSULOSIN 0.4 MG (FLOMAX) CAP PO SCH (17:42)
[2021-08-14 20:00] VITALS: BP 119/55
[2021-08-14] MEDS: [UNRECOGNIZED DRUG - REMARK] PO PRN (20:16)
[2021-08-14] MEDS: rOPINIRole 0.25 MG (REQUIP) TAB PO SCH (20:16)
--- NOTE | 2021-08-15 04:26 | PM&R Progress Note ---
Subjective HPI/CC On Admission Date Seen by Provider: Aug 15, 2021 Time Seen by Provider: 12:30 Subjective/Events-last exam 08/15/2021: Patient having a good day No pain reported Working on transfers BM+ 08/14/2021: Patient doing well No pain reported Transfers are still slow and with a lot of effort 08/13/2021: Patient doing well Slept well last night Check meds labs No falls 08/12/21: Pt is doing really well Bowels moved today Transfer is working on due to right sided weakness No other new issues 08/11/2021: Pt did pretty well throughout the night Bowels moved last night Overall working on recovering strength Checked meds and labs Labs otherwise stable Review of Systems General: Fatigue, Malaise Objective Exam Vital Signs Vital Signs Date Time Temp Pulse Resp B/P (MAP) Pulse Ox O2 Delivery O2 Flow Rate FiO2 08/15/21 21:30 37.2 08/15/21 20:35 94 Room Air 08/15/21 19:54 69 18 107/62 (77) Capillary Refill : General Appearance: No Apparent Distress, WD/WN, Chronically ill, Obese HEENT: PERRL/EOMI, Normal ENT Inspection, Pharynx Normal Neck: Full Range of Motion, Normal Inspection, Non Tender, Supple, Carotid Bruit Respiratory: Chest Non Tender, Lungs Clear, Normal Breath Sounds, No Accessory Muscle Use, No Respiratory Distress Cardiovascular: Regular Rate, Rhythm, No Edema, No Gallop, No JVD, No Murmur, Normal Peripheral Pulses Gastrointestinal: Normal Bowel Sounds, No Organomegaly, No Pulsatile Mass, Non Tender, Soft Back: Normal Inspection, No CVA Tenderness, No Vertebral Tenderness Extremity: Normal Capillary Refill, Normal Inspection, Normal Range of Motion, Non Tender, No Calf Tenderness, No Pedal Edema Neurologic/Psychiatric: Alert, Oriented x3, caretaker grounds II-XII Norm as Tested, Depressed Affect, Motor Weakness (right sided chronic, generalized all extremities) Skin: Normal Color, Warm/Dry Lymphatic: No Adenopathy Results/Procedures Lab Patient resulted labs reviewed. FIM Transfers Therapy Code Descriptions/Definitions Functional [place] Measure: 0=Not Assessed/NA 4=Minimal Assistance 1=Total Assistance 5=Supervision or Setup 2=Maximal Assistance 6=Modified [place] 3=Moderate Assistance 7=Complete IndependenceSCALE: Activities may be completed with or without assistive devices. 4-Dfkwspjfhq-budpdqx completes the activity by him/herself with no assistance from a helper. 5-Set-up or Clean-up Assistance-helper sets up or cleans up; patient completes activity. [place] assists only prior to or following the activity. 4-Supervision or Touching Assistance-helper provides verbal cues and/or touching/steadying and/or contact guard assistance as patient completes activity. Assistance may be provided throughout the activity or intermittently. 3-Partial/Moderate Assistance-helper does LESS THAN HALF the effort. [place] lifts, holds or supports trunk or limbs, but provides less than half the effort. 2-Substantial/Maximal Assistance-helper does MORE THAN HALF the effort. [place] lifts or holds trunk or limbs and provides more than half the effort. 1-Cixxnzqld-qptawq does ALL the effort. Patient does none of the effort to complete the activity. Or, the assistance of 2 or more helpers is required for the patient to complete the activity. If activity was not attempted, code reason: 7-Patient Refused. 9-Not Applicable-not attempted and the patient did not perform the activity before the current illness, exacerbation or injury. 10-Not Attempted due to Environmental Limitations-(lack of equipment, weather restraints, etc.). 88-Not Attempted due to Medical Conditions or Safety Concerns. Roll Left to Right (QC): 4 Sit to Lying (QC): 4 Sit to Stand (QC): 4 Chair/Mjd-cb-Fboel Xfer(QC): 4 Car Transfer (QC): 3 Gait Training Does the Patient Walk?: Yes Walk 10 feet (QC): 4 Walk 50 ft with 2 Turns(QC): 88 Walk 150 ft (QC): 88 Walking 10ft/uneven surface-QC: 88 Gait Persons Needed: 1 (plus w/c behind) Gait Assistive Device: Cane Single Point Wheelchair Training Does the Pt Use a Wheelchair?: Yes Distance: 50' Wheel 50 ft with 2 turns (QC): 4 Wheel 150 ft (QC): 88 Type of Wheelchair: Manual Stair Training 1 Step (curb) (QC): 88 4 Steps (QC): 88 12 Steps (QC): 88 Balance Picking up an Object (QC): 88 ADL-Treatment Eating (QC): 5 Oral Hygiene (QC): 7 Bathing Location: L Upper Leg, R Upper Leg, Chest, Abdomen Shower/Bathe Self (QC): 2 Upper Body Dressing (QC): 3 Lower Body Dressing (QC): 2 On/Off Footwear (QC): 2 Toileting Hygiene (QC): 2 Toilet Transfer (QC): 2 Assessment/Plan Assessment and Plan Assess & Plan/Chief Complaint Assessment: Debility Pacemaker Neurogenic bladder s/p UTI catheter associated DM 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
[2021-08-15] MEDS: metFORMIN 500 MG (GLUCOPHAGE) TAB PO SCH ×2 (06:07→18:02)
[2021-08-15] MEDS: MULTIVIT W/MINERALS TAB (THERAGRAN M) PO SCH (06:07)
[2021-08-15 07:24] VITALS: BP 112/52
[2021-08-15] MEDS: RT-ALBUTEROL/IPRATROPIUM 3 ML (DUONEB) VIAL INH SCH ×3 (07:46→20:08)
[2021-08-15] MEDS: MIRABEGRON 25 MG TAB (MYRBETRIQ) PO SCH (08:22)
[2021-08-15] MEDS: ASPIRIN E.C. 81 MG (ECOTRIN) TAB PO SCH (08:22)
[2021-08-15] MEDS: CIPROFLOXACIN 500 MG (CIPRO) TABLET PO SCH ×2 (08:22→20:30)
[2021-08-15] MEDS: FINASTERIDE (PROSCAR) 5 MG TAB PO SCH (08:22)
[2021-08-15] MEDS: amLODIPine 10 MG (NORVASC) TAB PO SCH (08:22)
[2021-08-15] MEDS: TROSPIUM 20 MG (SANCTURA) TAB PO SCH ×2 (08:22→20:30)
[2021-08-15] MEDS: CLOPIDOGREL 75 MG (PLAVIX) TABLET PO SCH (08:22)
[2021-08-15] MEDS: lisINopril 5 MG (PRINIVIL) TABLET PO SCH (08:23)
[2021-08-15] MEDS: SENNA W/DOCUSATE (SENOKOT S) TABLET PO SCH ×2 (08:31→20:38)
[2021-08-15] MEDS: polyethylene glycoL POWDER 17 GM (MIRALAX) PACK PO SCH ×2 (08:31→20:38)
[2021-08-15] MEDS: DOCUSATE SODIUM 100 MG (COLACE) CAP PO SCH ×2 (08:31→20:31)
--- NOTE | 2021-08-15 08:49 | Cardiology Progress Note ---
Subjective Date Seen by Provider: Aug 15, 2021 Time Seen by Provider: 08:10 Subjective/Events-last exam Patient up in wheelchair, no new complaints. Denies any chest pain or dyspnea. Objective-Cardiology Exam Last Set of Vital Signs Vital Signs 08/15/21 08/15/21 08/15/21 07:24 07:46 09:39 Temp 37.2 Pulse 72 Resp 16 B/P (MAP) 112/52 (72) Pulse Ox 93 O2 Delivery Room Air I&O Intake and Output 08/15/21 00:00 Intake Total 1700 ml Output Total 1125 ml Balance 575 ml Intake Oral 1700 ml Output Urine Total 1125 ml # Bowel Movements 1 General: Alert, Oriented X3, Cooperative HEENT: Atraumatic, PERRLA Neck: Supple, No JVD, No Thyromegaly Lungs: Clear to Auscultation, Normal Air Movement Heart: Regular Rate, Normal S1, Normal S2, No Murmurs Abdomen: Normal Bowel Sounds, Soft, No Tenderness, No Hepatosplenomegaly, No Masses Extremities: No Clubbing, No Cyanosis, No Edema, Normal Pulses, No Tenderness/Swelling Skin: No Rashes, No Breakdown, No Significant Lesion Neuro: Normal Speech, Normal Tone, Sensation Intact Psych/Mental Status: Mental Status NL, Mood NL A/P-Cardiology Admission Diagnosis PPM CVA HTN HLP Assessment/Plan HTN, controlled, continue to monitor. 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 Follows with Dr. Rush. Continue to monitor Hx of CVA with right sided weakness. 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 I will try to obtain copy of records for further review. BPH Extobaccoism Supervisory-Addendum Brief Supervisory Addendum Participated in pt care: history, MDM, physical Personally performed: exam, history, MDM Care discussed with: YUDITH Results interpretation: Verified all documentation Notes: Patient was seen and evaluated with Jana, examination performed, management plan was discussed, agree with the current scribed note, I made few changes to the note using Italic font Patient was seen at bedside, laying down comfortably, feeling better Continue to improve daily Continue with physical therapy, monitor blood pressure JANA TOBAR Aug 15, 2021 08:49 JOSE D GANNON MD Aug 15, 2021 11:34
--- NOTE | 2021-08-15 12:04 | Physical Therapy Daily Note ---
PT Daily Note-Current Subjective Pt laying Supine in bed upon arrival. Pt agrees to PT as pt would like to walk. Pain Location: No Pain Reported Mental Status Patient Orientation: Person, Place, Time, Situation Transfers SCALE: Activities may be completed with or without assistive devices. 7-Tfhqmizpee-nudccgd completes the activity by him/herself with no assistance from a helper. 5-Set-up or Clean-up Assistance-helper sets up or cleans up; patient completes activity. [place] assists only prior to or following the activity. 4-Supervision or Touching Assistance-helper provides verbal cues and/or touching/steadying and/or contact guard assistance as patient completes activity. Assistance may be provided throughout the activity or intermittently. 3-Partial/Moderate Assistance-helper does LESS THAN HALF the effort. [place] lifts, holds or supports trunk or limbs, but provides less than half the effort. 2-Substantial/Maximal Assistance-helper does MORE THAN HALF the effort. [place] lifts or holds trunk or limbs and provides more than half the effort. 9-Vnfycxkwd-bkzown does ALL the effort. Patient does none of the effort to complete the activity. Or, the assistance of 2 or more helpers is required for the patient to complete the activity. If activity was not attempted, code reason: 7-Patient Refused. 9-Not Applicable-not attempted and the patient did not perform the activity before the current illness, exacerbation or injury. 10-Not Attempted due to Environmental Limitations-(lack of equipment, weather restraints, etc.). 88-Not Attempted due to Medical Conditions or Safety Concerns. Lying to Sitting/Side of Bed(Q: 3 Sit to Stand (QC): 4 Chair/Fgu-fe-Vrptv Xfer(QC): 4 Weight Bearing Full Weight Bearing Full Weight Bearing Gait Training Does the Patient Walk?: Yes Distance: 15' x5 Walk 10 feet (QC): 4 Gait Persons Needed: 1 Uses hallway railing on R side like pt would at home. Wheelchair Training Does the Pt Use a Wheelchair?: Yes Wheel 50 ft with 2 turns (QC): 4 Treatments TF from Supine to EOB then SPT to [facility]. Pt propels WCH in hallway before amb. at hallway railing x5 w/WCH following. Pt returns to [facility] each time for short RB then returns to room to rest Supine in bed. Pt is repositioned to comfort awaiting lunch. All needs met, call light in hand. Assessment Current Status: Good Progress Pt is gaining strength which pt demonstrates improved transfers and ambulation. PT Short Term Goals Short Term Goals Time Frame: Aug 17, 2021 Roll Left & Right: 3 (Ed) Sit to lyin (Ed) Lying to sitting on side of be: 3 (Ed) Sit to stand: 4 (CGA) Chair/bsr-ol-lvwah transfer: 4 (CGA) Walk 10 feet: 4 (CGA) PT Loss Claim Clerk Goals Loss Claim Clerk Goals PT Detention Goals Time Frame: Aug 31, 2021 Roll Left & Right (QC): 4 (SBA) Sit to Lying (QC): 4 (SBA) Lying-Sitting on Side/Bed(QC): 4 (SBA) Sit to Stand (QC): 4 (SBA) Chair/Jqd-ll-Fdzqi Xfer(QC): 4 (SBA) Toilet Transfer (QC): 4 (SBA) Car Transfer (QC): 4 (SBA) Does the Patient Walk: Yes Walk 10 feet (QC): 4 (SBA) Walk 50ft with 2 Turns (QC): 88 Walk 150 ft (QC): 88 Walking 10ft on Uneven Surface: 4 (CGA) 1 Step (curb) (QC): 88 4 Steps (QC): 88 12 Steps (QC): 88 Picking up an Object (QC): 88 Wheel 50 feet with 2 turns (QC: 6 Wheel 150 feet: 6 PT Plan Problem List Problem List: Activity Tolerance, Gait Treatment/Plan Treatment Plan: Continue Plan of Care Treatment Plan: Bed Mobility, Education, Functional Activity Ki, Functional Strength, Group Therapy, Gait, Safety, Therapeutic Exercise, Transfers Treatment Duration: Aug 31, 2021 Frequency: At least 5 of 7 days/Wk (IRF) Estimated Hrs Per Day: 1.5 hours per day Patient and/or Family Agrees t: Yes Safety Risks/Education Patient Education: Gait Training, Correct Positioning, Safety Issues Teaching Recipient: Patient Teaching Methods: Discussion Response to Teaching: Verbalize Understanding Time/GCodes Time In: 1100 Time Out: 1215 Total Billed Treatment Time: 75 Total Billed Treatment 1, GT x2 (35m), FA x2 (25m) & WCH (15m) CAROLINA THOMPSON FILM PAINTER Aug 15, 2021 12:04
--- NOTE | 2021-08-15 12:30 | Speech Therapy Daily Note ---
Speech Daily Progress Note Subjective Date Seen by Provider: Aug 15, 2021 Time Seen by Provider: 09:45 The patient was lying in bed, awake and alert upon entrance to his room by the clinician. The patient greeted the clinician appropriately and was agreeable to participation in the cognitive linguistic treatment session. Objective Following a conversation with the OT, the clinician and OT were interested in gaining better and a more clear understanding of the patient's home routine and independence. Due to this, the clinician based today's session on structured conversation involving the patient's daily routine. The patient stated he wakes around 6:00 and self-transfers himself to his wheelchair for breakfast. Following breakfast, the patient stated his daughter will often bring his to doctor's appointments. Per patient, "when it all goes well," he is able to transfer himself with aid from his daughter into her car. The patient would not provide additional details towards what occurs if "it doesn't go well." The patient stated following he will relax in his recliner, which he is able to self-transfer to. The patient stated his daughter places his socks and shoes on and helps "a little" with the remainder of his clothing items. Per daughter, she greatly assists the patient throughout the day with all tasks. The patient's daughter wished for the patient to gain increased independence throughout the rehabilitation setting to reduce her high load of care giving. At this time, the clinician is unsure if the patient displays motivation for increased independence as he continues to state, "it works well for us." Assessment Assessment Current Status: Fair Progress Treatment Plan Continue Plan of Care Speech Short Term Goals Short Term Goals Short Term Goals 1. The patient will display 90% accuracy with memory exercises and strategies with mild clinician verbal cueing. Time Frame-STG: One Week. Speech Prison Goals Ophthalmic Pathologist Goals 1. The patient will display improved cognitive linguistic skills for safe discharge to the least restrictive environment. Time Frame: Two Weeks. Speech-Plan Treatment Plan Speech Therapy Treatment Plan: Continue Plan of Care Treatment Duration: Aug 11, 2021 Frequency: Modified Program (IRF) Estimated Hrs Per Day: Other Rehab Potential: Fair Pt/Family Agrees to Plan: Yes Safety Risks/Education Teaching Recipient: Patient Teaching Methods: Discussion Response to Teaching: Verbalize Understanding, Reinforcement Needed Education Topics Provided: Rehabilitation Process, Goals Time Speech Therapy Time In: 09:45 Speech Therapy Time Out: 10:15 Total Billed Time: 30 Billed Treatment Time 1, JUWAN Glasgow Aug 15, 2021 12:30
[2021-08-15] MEDS: TAMSULOSIN 0.4 MG (FLOMAX) CAP PO SCH (18:02)
[2021-08-15 19:54] VITALS: BP 107/62
[2021-08-15] MEDS: rOPINIRole 0.25 MG (REQUIP) TAB PO SCH (20:31)
--- NOTE | 2021-08-16 05:55 | PM&R Progress Note ---
Subjective HPI/CC On Admission Date Seen by Provider: Aug 16, 2021 Time Seen by Provider: 10:00 Subjective/Events-last exam 08/16/2021: Patient has no issues Lungs are clear today Nebs and IS maintained Pain controlled Daughter thinks he is doing "ok" 08/15/2021: Patient having a good day No pain reported Working on transfers BM+ 08/14/2021: Patient doing well No pain reported Transfers are still slow and with a lot of effort 08/13/2021: Patient doing well Slept well last night Check meds labs No falls 08/12/21: Pt is doing really well Bowels moved today Transfer is working on due to right sided weakness No other new issues 08/11/2021: Pt did pretty well throughout the night Bowels moved last night Overall working on recovering strength Checked meds and labs Labs otherwise stable Review of Systems General: Fatigue, Malaise Pulmonary: Dyspnea Objective Exam Vital Signs Vital Signs Date Time Temp Pulse Resp B/P (MAP) Pulse Ox O2 Delivery O2 Flow Rate FiO2 08/16/21 21:00 92 Room Air 08/16/21 19:31 37.6 76 18 106/59 (75) Capillary Refill : General Appearance: No Apparent Distress, WD/WN, Chronically ill, Obese HEENT: PERRL/EOMI, Normal ENT Inspection, Pharynx Normal Neck: Full Range of Motion, Normal Inspection, Non Tender, Supple, Carotid Bruit Respiratory: Chest Non Tender, Lungs Clear, Normal Breath Sounds, No Accessory Muscle Use, No Respiratory Distress Cardiovascular: Regular Rate, Rhythm, No Edema, No Gallop, No JVD, No Murmur, Normal Peripheral Pulses Gastrointestinal: Normal Bowel Sounds, No Organomegaly, No Pulsatile Mass, Non Tender, Soft Back: Normal Inspection, No CVA Tenderness, No Vertebral Tenderness Extremity: Normal Capillary Refill, Normal Inspection, Normal Range of Motion, Non Tender, No Calf Tenderness, No Pedal Edema Neurologic/Psychiatric: Alert, Oriented x3, wire rope sling maker II-XII Norm as Tested, Depressed Affect, Motor Weakness (right sided chronic, generalized all extremities) Skin: Normal Color, Warm/Dry Lymphatic: No Adenopathy Results/Procedures Lab Patient resulted labs reviewed. FIM Transfers Therapy Code Descriptions/Definitions Functional [place] Measure: 0=Not Assessed/NA 4=Minimal Assistance 1=Total Assistance 5=Supervision or Setup 2=Maximal Assistance 6=Modified [place] 3=Moderate Assistance 7=Complete IndependenceSCALE: Activities may be completed with or without assistive devices. 4-Vudxjuwywi-mxneytu completes the activity by him/herself with no assistance from a helper. 5-Set-up or Clean-up Assistance-helper sets up or cleans up; patient completes activity. [place] assists only prior to or following the activity. 4-Supervision or Touching Assistance-helper provides verbal cues and/or touching/steadying and/or contact guard assistance as patient completes activity. Assistance may be provided throughout the activity or intermittently. 3-Partial/Moderate Assistance-helper does LESS THAN HALF the effort. [place] lifts, holds or supports trunk or limbs, but provides less than half the effort. 2-Substantial/Maximal Assistance-helper does MORE THAN HALF the effort. [place] lifts or holds trunk or limbs and provides more than half the effort. 1-Pvjdsixyx-vgdndq does ALL the effort. Patient does none of the effort to complete the activity. Or, the assistance of 2 or more helpers is required for the patient to complete the activity. If activity was not attempted, code reason: 7-Patient Refused. 9-Not Applicable-not attempted and the patient did not perform the activity befo re the current illness, exacerbation or injury. 10-Not Attempted due to Environmental Limitations-(lack of equipment, weather re straints, etc.). 88-Not Attempted due to Medical Conditions or Safety Concerns. Roll Left to Right (QC): 4 Sit to Lying (QC): 4 Sit to Stand (QC): 4 Chair/Ygj-qi-Ntjca Xfer(QC): 4 Car Transfer (QC): 3 Gait Training Does the Patient Walk?: Yes Distance: 15' x5 Walk 10 feet (QC): 4 Walk 50 ft with 2 Turns(QC): 88 Walk 150 ft (QC): 88 Walking 10ft/uneven surface-QC: 88 Gait Persons Needed: 1 Gait Assistive Device: Cane Single Point Wheelchair Training Does the Pt Use a Wheelchair?: Yes Distance: 50' Wheel 50 ft with 2 turns (QC): 4 Wheel 150 ft (QC): 88 Type of Wheelchair: Manual Stair Training 1 Step (curb) (QC): 88 4 Steps (QC): 88 12 Steps (QC): 88 Balance Picking up an Object (QC): 88 ADL-Treatment Eating (QC): 5 Oral Hygiene (QC): 7 Bathing Location: L Upper Leg, R Upper Leg, Chest, Abdomen Shower/Bathe Self (QC): 2 Upper Body Dressing (QC): 3 Lower Body Dressing (QC): 2 On/Off Footwear (QC): 2 Toileting Hygiene (QC): 2 Toilet Transfer (QC): 2 Assessment/Plan Assessment and Plan Assess & Plan/Chief Complaint Assessment: Debility Pacemaker Neurogenic bladder s/p UTI catheter associated DM 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
[2021-08-16] MEDS: MULTIVIT W/MINERALS TAB (THERAGRAN M) PO SCH (06:41)
[2021-08-16] MEDS: metFORMIN 500 MG (GLUCOPHAGE) TAB PO SCH ×2 (06:41→16:32)
[2021-08-16] MEDS: RT-ALBUTEROL/IPRATROPIUM 3 ML (DUONEB) VIAL INH SCH ×3 (06:50→20:59)
[2021-08-16 07:42] VITALS: BP 105/52
--- NOTE | 2021-08-16 08:05 | Cardiology Progress Note ---
Subjective Date Seen by Provider: Aug 16, 2021 Time Seen by Provider: 08:04 Subjective/Events-last exam Patient sitting up in bed, no new complaints. Denies any chest pain or dyspnea. Objective-Cardiology Exam Last Set of Vital Signs Vital Signs 08/16/21 08/16/21 07:42 08:00 Temp 36.9 Pulse 85 Resp 16 B/P (MAP) 105/52 (69) Pulse Ox 92 O2 Delivery Room Air I&O Intake and Output 08/16/21 00:00 Intake Total 685 ml Output Total 1000 ml Balance -315 ml Intake Oral 685 ml Output Urine Total 1000 ml # Bowel Movements 1 General: Alert, Oriented X3, Cooperative HEENT: Atraumatic, PERRLA Neck: Supple, No JVD, No Thyromegaly Lungs: Clear to Auscultation, Normal Air Movement Heart: Regular Rate, Normal S1, Normal S2, No Murmurs Abdomen: Normal Bowel Sounds, Soft, No Tenderness, No Hepatosplenomegaly, No Masses Extremities: No Clubbing, No Cyanosis, No Edema, Normal Pulses, No Tenderness/Swelling Skin: No Rashes, No Breakdown, No Significant Lesion Neuro: Normal Speech, Normal Tone, Sensation Intact Psych/Mental Status: Mental Status NL, Mood NL A/P-Cardiology Admission Diagnosis PPM CVA HTN HLP Assessment/Plan HTN, controlled, continue to monitor. 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 Follows with Dr. Rush. 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 I will try to obtain copy of records for further review. BPH Extobaccoism Supervisory-Addendum Brief Supervisory Addendum Participated in pt care: history, MDM, physical Personally performed: exam, history, MDM Care discussed with: YUDITH Results interpretation: Verified all documentation Notes: Patient was seen and evaluated with Jana, examination performed, management plan was discussed, agree with the current scribed note, I made few changes to the note using Italic font Patient was seen during physical therapy session, Feeling better, reporting improvement in his muscle strength No change from cardiology standpoint Continue to monitor JANA TOBAR Aug 16, 2021 08:05 JOSE D GANNON MD Aug 16, 2021 08:58
--- NOTE | 2021-08-16 09:04 | Physical Therapy Daily Note ---
PT Daily Note-Current Subjective Patient in bed pre tx, agrees to PT, has no complaints of pain. Appearance Patient in bed post tx with nurse call, phone, tray, all needs met. Mental Status Patient Orientation: Person, Place, Situation Transfers SCALE: Activities may be completed with or without assistive devices. 2-Kbvbhmhclc-yniheqg completes the activity by him/herself with no assistance from a helper. 5-Set-up or Clean-up Assistance-helper sets up or cleans up; patient completes activity. [place] assists only prior to or following the activity. 4-Supervision or Touching Assistance-helper provides verbal cues and/or touching/steadying and/or contact guard assistance as patient completes activity. Assistance may be provided throughout the activity or intermittently. 3-Partial/Moderate Assistance-helper does LESS THAN HALF the effort. [place] lifts, holds or supports trunk or limbs, but provides less than half the effort. 2-Substantial/Maximal Assistance-helper does MORE THAN HALF the effort. [place] lifts or holds trunk or limbs and provides more than half the effort. 0-Fqejqozkk-vkvuae does ALL the effort. Patient does none of the effort to complete the activity. Or, the assistance of 2 or more helpers is required for the patient to complete the activity. If activity was not attempted, code reason: 7-Patient Refused. 9-Not Applicable-not attempted and the patient did not perform the activity before the current illness, exacerbation or injury. 10-Not Attempted due to Environmental Limitations-(lack of equipment, weather restraints, etc.). 88-Not Attempted due to Medical Conditions or Safety Concerns. Roll Left & Right (QC): 3 Sit to Lying (QC): 3 Lying to Sitting/Side of Bed(Q: 3 Sit to Stand (QC): 3 Chair/Mya-ac-Ehzpa Xfer(QC): 3 Patient performs rolling with min assist, supine <-> sit with mod assist, sit <- > stand and transfers with mod assist. Patient is resistant to transferring to his right side but needs to practice this to try to become proficient with transfers. Weight Bearing Full Weight Bearing Full Weight Bearing Gait Training attempted ambulation x3 but patient would stand, legs shaky, and then state he was too weak to walk today Wheelchair Training Does the Pt Use a Wheelchair?: Yes Wheel 50 ft with 2 turns (QC): 3 Type of Wheelchair: Manual 100'x2, min assist to maneuver in tight places and sometimes through doorways Exercises Seated Therapy Exercises: Hip abd/add (with ball and RTB) Standing: Heel/toe raises, Marching (x10), Mini squats Standing Reps: 15 LAQ alternating for 5 min NuStep Minutes: 15 NuStep Workload: 4 (right UE not used) Treatments bed mobility and transfers, WC mobility, functional strengthening Assessment Current Status: Poor Progress Patient has made little progress in functional mobility at this time. PT Short Term Goals Short Term Goals Time Frame: Aug 17, 2021 Roll Left & Right: 3 (Ed) Sit to lyin (Ed) Lying to sitting on side of be: 3 (Ed) Sit to stand: 4 (CGA) Chair/dcz-hd-poqau transfer: 4 (CGA) Walk 10 feet: 4 (CGA) PT Senior Care Goals Senior Care Goals PT Senior Care Goals Time Frame: Aug 31, 2021 Roll Left & Right (QC): 4 (SBA) Sit to Lying (QC): 4 (SBA) Lying-Sitting on Side/Bed(QC): 4 (SBA) Sit to Stand (QC): 4 (SBA) Chair/Kqq-nn-Whpxk Xfer(QC): 4 (SBA) Toilet Transfer (QC): 4 (SBA) Car Transfer (QC): 4 (SBA) Does the Patient Walk: Yes Walk 10 feet (QC): 4 (SBA) Walk 50ft with 2 Turns (QC): 88 Walk 150 ft (QC): 88 Walking 10ft on Uneven Surface: 4 (CGA) 1 Step (curb) (QC): 88 4 Steps (QC): 88 12 Steps (QC): 88 Picking up an Object (QC): 88 Wheel 50 feet with 2 turns (QC: 6 Wheel 150 feet: 6 PT Plan Problem List Problem List: Activity Tolerance, Functional Strength, Safety, Balance, Gait, Transfer, Bed Mobility, ROM Treatment/Plan Treatment Plan: Continue Plan of Care Treatment Plan: Bed Mobility, Education, Functional Activity Ki, Functional Strength, Group Therapy, Gait, Safety, Therapeutic Exercise, Transfers Treatment Duration: Aug 31, 2021 Frequency: At least 5 of 7 days/Wk (IRF) Estimated Hrs Per Day: 1.5 hours per day Patient and/or Family Agrees t: Yes Safety Risks/Education Patient Education: Transfer Techniques, Correct Positioning, W/C Management, Safety Issues Teaching Recipient: Patient Teaching Methods: Demonstration, Discussion Response to Teaching: Reinforcement Needed Time/GCodes Time In: 0800 Time Out: 914 Total Billed Treatment Time: 75 Total Billed Treatment 1 visit FA 35' EX 40' ALEKSANDR DINH PT Aug 16, 2021 09:04
[2021-08-16] MEDS: SENNA W/DOCUSATE (SENOKOT S) TABLET PO SCH ×2 (09:13→20:26)
[2021-08-16] MEDS: MIRABEGRON 25 MG TAB (MYRBETRIQ) PO SCH (09:14)
[2021-08-16] MEDS: TROSPIUM 20 MG (SANCTURA) TAB PO SCH ×2 (09:15→20:25)
[2021-08-16] MEDS: amLODIPine 10 MG (NORVASC) TAB PO SCH (09:15)
[2021-08-16] MEDS: DOCUSATE SODIUM 100 MG (COLACE) CAP PO SCH ×2 (09:15→20:28)
[2021-08-16] MEDS: lisINopril 5 MG (PRINIVIL) TABLET PO SCH (09:15)
[2021-08-16] MEDS: CLOPIDOGREL 75 MG (PLAVIX) TABLET PO SCH (09:15)
[2021-08-16] MEDS: polyethylene glycoL POWDER 17 GM (MIRALAX) PACK PO SCH ×2 (09:15→19:15)
[2021-08-16] MEDS: FINASTERIDE (PROSCAR) 5 MG TAB PO SCH (09:15)
[2021-08-16] MEDS: ASPIRIN E.C. 81 MG (ECOTRIN) TAB PO SCH (09:33)
--- NOTE | 2021-08-16 09:59 | Occupational Ther Daily Note ---
OT Current Status-Daily Note Subjective LATE ENTRY FOR 08/15/2021- Pt sleeping in bed, woke to name. Pt sleepy this morning and difficult to get motivated. Pt does agree to therapy and no c/o pain. Mental Status/Objective Patient Orientation: Person, Place, Time, Situation ADL-Treatment Pt agrees to shower. Min A for supine <--> EOB. CGA for transfer from EOB to w/c. Pt sat at sink to complete grooming. Declines to complete oral care. Pt completes shower transfer with CGA for safety. Pt stood with parallel bars to stabilize while assist to hike pants over hips. Pt able to doff lower body clothing over feet then requires assist to thread feet into pants. Pt able to doff socks, assist to don socks. Set up to don shoes and doffs by self. Doffs shirt by self then dons with min A to thread R UE. Sitting on shower bench 90% of the time to complete own bathing then stands and stabilizes with grabbar wh ile assist to cleanse buttocks. After therapy, pt lying in bed with call light/phone in reach. All needs met in room. Therapy Code Descriptions/Definitions Functional [place] Measure: 0=Not Assessed/NA 4=Minimal Assistance 1=Total Assistance 5=Supervision or Setup 2=Maximal Assistance 6=Modified [place] 3=Moderate Assistance 7=Complete IndependenceSCALE: Activities may be completed with or without assistive devices. 5-Qkmgzblukt-mudjipb completes the activity by him/herself with no assistance from a helper. 5-Set-up or Clean-up Assistance-helper sets up or cleans up; patient completes activity. [place] assists only prior to or following the activity. 4-Supervision or Touching Assistance-helper provides verbal cues and/or touching/steadying and/or contact guard assistance as patient completes activity. Assistance may be provided throughout the activity or intermittently. 3-Partial/Moderate Assistance-helper does LESS THAN HALF the effort. [place] lifts, holds or supports trunk or limbs, but provides less than half the effort. 2-Substantial/Maximal Assistance-helper does MORE THAN HALF the effort. [place] lifts or holds trunk or limbs and provides more than half the effort. 6-Jnefdkeqr-mrrmay does ALL the effort. Patient does none of the effort to complete the activity. Or, the assistance of 2 or more helpers is required for the patient to complete the activity. If activity was not attempted, code reason: 7-Patient Refused. 9-Not Applicable-not attempted and the patient did not perform the activity before the current illness, exacerbation or injury. 10-Not Attempted due to Environmental Limitations-(lack of equipment, weather restraints, etc.). 88-Not Attempted due to Medical Conditions or Safety Concerns. Oral Hygiene (QC): 7 Shower/Bathe Self (QC): 3 Upper Body Dressing (QC): 3 Lower Body Dressing (QC): 2 (max A) On/Off Footwear: 2 (Max A) OT Short Term Goals Short Term Goals Time Frame: Aug 20, 2021 Eatin Oral hygiene: 5 Toileting hygiene: 2 Shower/bathe self: 2 Upper body dressin Lower body dressin Putting on/taking off footwear: 2 OT Fdc Goals Picture Copyist Goals Time Frame: Sep 06, 2021 Eating (QC): 5 Oral Hygiene (QC): 5 Toileting Hygiene (QC): 4 Shower/Bathe Self (QC): 3 Upper Body Dressing (QC): 3 Lower Body Dressing (QC): 3 On/Off Footwear (QC): 3 1=Demonstrate adherence to instructed precautions during ADL tasks. 2=Patient will verbalize/demonstrate understanding of assistive devices/modifications for ADL. 3=Patient will improve strength/tolerance for activity to enable patient to perform ADL's. OT Education/Plan Problem List/Assessment Assessment: Decreased Activ Tolerance, Decreased UE Strength, Impaired Funct Balance, Impaired Self-Care Skills, Restricted Funct UE ROM Discharge Recommendations Plan/Recommendations: Continue POC Treatment Plan/Plan of Care Patient would benefit from OT for education, treatment and training to promote independence in ADL's, mobility, safety and/or upper extremity function for ADL's. Plan of Care: ADL Retraining, Caregiver Training, Cognitive Retraining, Functional Mobility, Group Exercise/Act as Ind, Orthotic Fitting/Training, UE Funct Exercise/Act, UE Neuromus Re-Ed/Coord, W/C Management Training Treatment Duration: Sep 06, 2021 Frequency: At least 5 of 7 days/Wk (IRF) Estimated Hrs Per Day: 1.5 hours per day (75-90min/day ) Agreement: Yes Rehab Potential: Fair Time/GCodes Start Time: 08:00 Stop Time: 09:30 Total Time Billed (hr/min): 75 Billed Treatment Time LATE ENTRY FOR 08/15/2021 1 visit-ADL 6 (90 min) ROSALEE ESQUIVEL Aug 16, 2021 09:59
--- NOTE | 2021-08-16 12:02 | Occupational Ther Daily Note ---
OT Current Status-Daily Note Subjective Pt alert, lying in bed. Took over care from IP LITIGATION PARALEGAL. Daughter in room. Pt agrees to therapy. No c/o pain. Mental Status/Objective Patient Orientation: Person, Place, Time, Situation ADL-Treatment Pt declines shower. Pt requests to use toilet and complete grooming. Min A for supine <--> EOB with HOB raised and using bed rails. CGA for transfers from surface to surface by reaching and pulling on stable grabbar or bed rail. Pt stabilized self with grabbar and assist to complete toilet hygiene and clothing manipulation. Pt sat at sink to complete oral care by self after set up. This took increased time due to new techniques being used. Using sales assoc, pt able to don L shoe independently. Min A for R shoe to slide heel into shoe. Therapy Code Descriptions/Definitions Functional [place] Measure: 0=Not Assessed/NA 4=Minimal Assistance 1=Total Assistance 5=Supervision or Setup 2=Maximal Assistance 6=Modified [place] 3=Moderate Assistance 7=Complete IndependenceSCALE: Activities may be completed with or without assistive devices. 8-Awapweuhxh-gejattm completes the activity by him/herself with no assistance from a helper. 5-Set-up or Clean-up Assistance-helper sets up or cleans up; patient completes activity. [place] assists only prior to or following the activity. 4-Supervision or Touching Assistance-helper provides verbal cues and/or touching/steadying and/or contact guard assistance as patient completes activity. Assistance may be provided throughout the activity or intermittently. 3-Partial/Moderate Assistance-helper does LESS THAN HALF the effort. [place] lifts, holds or supports trunk or limbs, but provides less than half the effort. 2-Substantial/Maximal Assistance-helper does MORE THAN HALF the effort. [place] lifts or holds trunk or limbs and provides more than half the effort. 9-Cxditytjx-sgrvvj does ALL the effort. Patient does none of the effort to complete the activity. Or, the assistance of 2 or more helpers is required for the patient to complete the activity. If activity was not attempted, code reason: 7-Patient Refused. 9-Not Applicable-not attempted and the patient did not perform the activity before the current illness, exacerbation or injury. 10-Not Attempted due to Environmental Limitations-(lack of equipment, weather restraints, etc.). 88-Not Attempted due to Medical Conditions or Safety Concerns. Oral Hygiene (QC): 5 Toileting Hygiene (QC): 2 Toilet Transfer (QC): 4 Other Treatment Pt propelled w/c to/from room/therapy gym. Pt working on reaching/grasping items beside feet <--> placing on R side of body at hip height while sitting in w/c. Pt then completed dowel man AROM task on parallel bars to increase AROM of L UE, completed for 2 min. Then pt completed 10 reps of chest presses with dowel man while lying supine in bed. Pt demonstrated increase ROM with all areas worked on during session. Discussed with daughter on how to prompt pt to allow pt to sequence task on own instead of her guiding the task. After session, pt lying in bed with call light/phone in reach. All needs met. OT Short Term Goals Short Term Goals Time Frame: Aug 20, 2021 Eatin Oral hygiene: 5 Toileting hygiene: 2 Shower/bathe self: 2 Upper body dressin Lower body dressin Putting on/taking off footwear: 2 OT Communications Equipment Operator Goals Longterm Goals Time Frame: Sep 06, 2021 Eating (QC): 5 Oral Hygiene (QC): 5 Toileting Hygiene (QC): 4 Shower/Bathe Self (QC): 3 Upper Body Dressing (QC): 3 Lower Body Dressing (QC): 3 On/Off Footwear (QC): 3 1=Demonstrate adherence to instructed precautions during ADL tasks. 2=Patient will verbalize/demonstrate understanding of assistive devices/modifications for ADL. 3=Patient will improve strength/tolerance for activity to enable patient to perform ADL's. OT Education/Plan Problem List/Assessment Assessment: Decreased Activ Tolerance, Decreased UE Strength, Impaired Bed Mobility, Impaired Coordination, Impaired Funct Balance, Impaired Self-Care Sk ills, Restricted Funct UE ROM Discharge Recommendations Plan/Recommendations: Continue POC Treatment Plan/Plan of Care Patient would benefit from OT for education, treatment and training to promote independence in ADL's, mobility, safety and/or upper extremity function for ADL's. Plan of Care: ADL Retraining, Caregiver Training, Cognitive Retraining, Functional Mobility, Group Exercise/Act as Ind, Orthotic Fitting/Training, UE Funct Exercise/Act, UE Neuromus Re-Ed/Coord, W/C Management Training Treatment Duration: Sep 06, 2021 Frequency: At least 5 of 7 days/Wk (IRF) Estimated Hrs Per Day: 1.5 hours per day (75-90min/day ) Agreement: Yes Rehab Potential: Fair Time/GCodes Start Time: 10:15 Stop Time: 11:45 Total Time Billed (hr/min): 90 Billed Treatment Time 1 visit-ADL 2 (30 min) NM 3 (45 min) FA 1 (15 min) ROSALEE ESQUIVEL Aug 16, 2021 12:02
--- NOTE | 2021-08-16 12:05 | Speech Therapy Daily Note ---
Speech Daily Progress Note Subjective Date Seen by Provider: Aug 16, 2021 Time Seen by Provider: 09:45 The patient was lying in bed, awake and alert upon entrance to his room by the clinician. The patient has his daughter and granddaughter at bedside. The patient greeted the clinician appropriately and was agreeable to participation in the cognitive linguistic treatment session. Objective The presence of the patient's daughter allowed for an open and transparent conversation regarding the patient's prior function and the goals necessary to return to his home environment. Per daughter, at a minimum, the patient needs to perform the following prior to discharge to her home: - Transfer in and out of bed, independently. - Walk six feet with a cane and gait belt. The daughter reported the doorway to the restroom is not large enough for a wheelchair. - Wheel himself to the kitchen. The patient's daughter stated the patient has an electric wheelchair on order, however, it is eight to ten weeks from completion. The patient's daughter stated she is "at a high risk for losing her job if she calls in anymore." The patient's daughter introduced the idea of transferring to a usp facility (temporarily) if the patient is unable to be independent in the above tasks. The patient has stated to his daughter, he'd "like to just lay here and ." Continued encouragement was provided by the clinician and the about information will be communicated to therapy disciplines. Assessment Assessment Current Status: Fair Progress Treatment Plan Continue Plan of Care Speech Short Term Goals Short Term Goals Short Term Goals 1. The patient will display 90% accuracy with memory exercises and strategies with mild clinician verbal cueing. Time Frame-STG: One Week. Speech Quality Assurance Supervisor Body Goals Half-Way Goals 1. The patient will display improved cognitive linguistic skills for safe discharge to the least restrictive environment. Time Frame: Two Weeks. Speech-Plan Treatment Plan Speech Therapy Treatment Plan: Continue Plan of Care Treatment Duration: Aug 11, 2021 Frequency: Modified Program (IRF) Estimated Hrs Per Day: Other Rehab Potential: Fair Safety Risks/Education Teaching Recipient: Patient, Family Teaching Methods: Discussion Response to Teaching: Reinforcement Needed Education Topics Provided: Plan of Care, Goals Time Speech Therapy Time In: 09:45 Speech Therapy Time Out: 10:15 Total Billed Time: 30 Billed Treatment Time CARLOS Rubio [facility] Aug 16, 2021 12:05
[2021-08-16] MEDS: TAMSULOSIN 0.4 MG (FLOMAX) CAP PO SCH (17:26)
[2021-08-16 19:31] VITALS: BP 106/59
[2021-08-16] MEDS: rOPINIRole 0.25 MG (REQUIP) TAB PO SCH (20:26)
[2021-08-17] MEDS: metFORMIN 500 MG (GLUCOPHAGE) TAB PO SCH ×2 (05:55→17:33)
[2021-08-17] MEDS: MULTIVIT W/MINERALS TAB (THERAGRAN M) PO SCH (05:55)
--- NOTE | 2021-08-17 06:41 | PM&R Progress Note ---
Subjective HPI/CC On Admission Date Seen by Provider: Aug 17, 2021 Time Seen by Provider: 09:00 Subjective/Events-last exam 08/17/21: Patient doing well Changing Nebs to BID prn Using IS Lungs are clear Doing better 08/16/2021: Patient has no issues Lungs are clear today Nebs and IS maintained Pain controlled Daughter thinks he is doing "ok" 08/15/2021: Patient having a good day No pain reported Working on transfers BM+ 08/14/2021: Patient doing well No pain reported Transfers are still slow and with a lot of effort 08/13/2021: Patient doing well Slept well last night Check meds labs No falls 08/12/21: Pt is doing really well Bowels moved today Transfer is working on due to right sided weakness No other new issues 08/11/2021: Pt did pretty well throughout the night Bowels moved last night Overall working on recovering strength Checked meds and labs Labs otherwise stable Review of Systems General: Fatigue, Malaise Neurological: Weakness Objective Exam Vital Signs Vital Signs Date Time Temp Pulse Resp B/P (MAP) Pulse Ox O2 Delivery O2 Flow Rate FiO2 08/17/21 14:55 96 Room Air 08/17/21 07:26 37.4 83 20 128/58 (81) Capillary Refill : General Appearance: No Apparent Distress, WD/WN, Chronically ill, Obese HEENT: PERRL/EOMI, Normal ENT Inspection, Pharynx Normal Neck: Full Range of Motion, Normal Inspection, Non Tender, Supple, Carotid Bruit Respiratory: Chest Non Tender, Lungs Clear, Normal Breath Sounds, No Accessory Muscle Use, No Respiratory Distress Cardiovascular: Regular Rate, Rhythm, No Edema, No Gallop, No JVD, No Murmur, Normal Peripheral Pulses Gastrointestinal: Normal Bowel Sounds, No Organomegaly, No Pulsatile Mass, Non Tender, Soft Back: Normal Inspection, No CVA Tenderness, No Vertebral Tenderness Extremity: Normal Capillary Refill, Normal Inspection, Normal Range of Motion, Non Tender, No Calf Tenderness, No Pedal Edema Neurologic/Psychiatric: Alert, Oriented x3, melting supervisor II-XII Norm as Tested, Depressed Affect, Motor Weakness (right sided chronic, generalized all extremities) Skin: Normal Color, Warm/Dry Lymphatic: No Adenopathy Results/Procedures Lab Patient resulted labs reviewed. FIM Transfers Therapy Code Descriptions/Definitions Functional [place] Measure: 0=Not Assessed/NA 4=Minimal Assistance 1=Total Assistance 5=Supervision or Setup 2=Maximal Assistance 6=Modified [place] 3=Moderate Assistance 7=Complete IndependenceSCALE: Activities may be completed with or without assistive devices. 9-Ebgapzsegc-hhkfdym completes the activity by him/herself with no assistance from a helper. 5-Set-up or Clean-up Assistance-helper sets up or cleans up; patient completes activity. [place] assists only prior to or following the activity. 4-Supervision or Touching Assistance-helper provides verbal cues and/or touching/steadying and/or contact guard assistance as patient completes activity. Assistance may be provided throughout the activity or intermittently. 3-Partial/Moderate Assistance-helper does LESS THAN HALF the effort. [place] lifts, holds or supports trunk or limbs, but provides less than half the effort. 2-Substantial/Maximal Assistance-helper does MORE THAN HALF the effort. [place] lifts or holds trunk or limbs and provides more than half the effort. 9-Wlhtvfcws-neqewd does ALL the effort. Patient does none of the effort to complete the activity. Or, the assistance of 2 or more helpers is required for the patient to complete the activity. If activity was not attempted, code reason: 7-Patient Refused. 9-Not Applicable-not attempted and the patient did not perform the activity before the current illness, exacerbation or injury. 10-Not Attempted due to Environmental Limitations-(lack of equipment, weather restraints, etc.). 88-Not Attempted due to Medical Conditions or Safety Concerns. Roll Left to Right (QC): 3 Sit to Lying (QC): 3 Sit to Stand (QC): 3 Chair/Kwy-ck-Uksyh Xfer(QC): 3 Car Transfer (QC): 3 Gait Training Does the Patient Walk?: Yes Distance: 15' x5 Walk 10 feet (QC): 4 Walk 50 ft with 2 Turns(QC): 88 Walk 150 ft (QC): 88 Walking 10ft/uneven surface-QC: 88 Gait Persons Needed: 1 Gait Assistive Device: Cane Single Point Wheelchair Training Does the Pt Use a Wheelchair?: Yes Distance: 50' Wheel 50 ft with 2 turns (QC): 3 Wheel 150 ft (QC): 88 Type of Wheelchair: Manual Stair Training 1 Step (curb) (QC): 88 4 Steps (QC): 88 12 Steps (QC): 88 Balance Picking up an Object (QC): 88 ADL-Treatment Eating (QC): 5 Oral Hygiene (QC): 5 Bathing Location: L Upper Leg, R Upper Leg, Chest, Abdomen Shower/Bathe Self (QC): 3 Upper Body Dressing (QC): 3 Lower Body Dressing (QC): 2 (max A) On/Off Footwear (QC): 2 (Max A) Toileting Hygiene (QC): 2 Toilet Transfer (QC): 4 Assessment/Plan Assessment and Plan Assess & Plan/Chief Complaint Assessment: Debility Pacemaker Neurogenic bladder s/p UTI catheter associated DM 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
[2021-08-17 07:26] VITALS: BP 128/58
[2021-08-17] MEDS: RT-ALBUTEROL/IPRATROPIUM 3 ML (DUONEB) VIAL INH SCH ×2 (07:26→14:54)
[2021-08-17] MEDS: amLODIPine 10 MG (NORVASC) TAB PO SCH (07:57)
[2021-08-17] MEDS: TROSPIUM 20 MG (SANCTURA) TAB PO SCH ×2 (07:57→20:43)
[2021-08-17] MEDS: FINASTERIDE (PROSCAR) 5 MG TAB PO SCH (07:57)
[2021-08-17] MEDS: CLOPIDOGREL 75 MG (PLAVIX) TABLET PO SCH (07:57)
[2021-08-17] MEDS: lisINopril 5 MG (PRINIVIL) TABLET PO SCH (07:57)
[2021-08-17] MEDS: MIRABEGRON 25 MG TAB (MYRBETRIQ) PO SCH (07:57)
[2021-08-17] MEDS: ASPIRIN E.C. 81 MG (ECOTRIN) TAB PO SCH (07:57)
[2021-08-17] MEDS: polyethylene glycoL POWDER 17 GM (MIRALAX) PACK PO SCH ×2 (09:00→20:49)
[2021-08-17] MEDS: SENNA W/DOCUSATE (SENOKOT S) TABLET PO SCH ×2 (09:00→20:50)
[2021-08-17] MEDS: DOCUSATE SODIUM 100 MG (COLACE) CAP PO SCH ×2 (09:00→20:49)
--- NOTE | 2021-08-17 09:12 | Cardiology Progress Note ---
Subjective Date Seen by Provider: Aug 17, 2021 Time Seen by Provider: 08:15 Subjective/Events-last exam Patient is sitting up in wheelchair, no new complaints. Denies any chest pain Objective-Cardiology Exam Last Set of Vital Signs Vital Signs 08/17/21 14:55 Pulse Ox 96 O2 Delivery Room Air I&O Intake and Output 08/17/21 00:00 Intake Total 1340 ml Output Total 1100 ml Balance 240 ml Intake Oral 1340 ml Output Urine Total 1100 ml # Bowel Movements 1 General: Alert, Oriented X3, Cooperative HEENT: Atraumatic, PERRLA Neck: Supple, No JVD, No Thyromegaly Lungs: Clear to Auscultation, Normal Air Movement Heart: Regular Rate, Normal S1, Normal S2, No Murmurs Abdomen: Normal Bowel Sounds, Soft, No Tenderness, No Hepatosplenomegaly, No Masses Extremities: No Clubbing, No Cyanosis, No Edema, Normal Pulses, No Tenderness/Swelling Skin: No Rashes, No Breakdown, No Significant Lesion Neuro: Normal Speech, Normal Tone, Sensation Intact Psych/Mental Status: Mental Status NL, Mood NL A/P-Cardiology Admission Diagnosis PPM CVA HTN HLP Assessment/Plan HTN, controlled, continue to monitor. 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 Follows with Dr. Rush. 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 BPH Extobaccoism Supervisory-Addendum Brief Supervisory Addendum Participated in pt care: history, MDM, physical Personally performed: exam, history, MDM Care discussed with: YUDITH Results interpretation: Verified all documentation Notes: Patient was seen and evaluated with Jana, examination performed, management plan was discussed, agree with the current scribed note, I made few changes to the note using Italic font Patient was seen at bedside, laying down comfortably No new complain Continue on current medication, continue to monitor blood pressure No changes from cardiology JANA TOBAR Aug 17, 2021 09:12 JOSE D GANNON MD Aug 17, 2021 16:53
--- NOTE | 2021-08-17 11:11 | Speech Therapy Daily Note ---
Speech Daily Progress Note Subjective Date Seen by Provider: Aug 17, 2021 Time Seen by Provider: 09:45 The patient was lying in bed, awake and alert upon entrance to his room by the clinician. The patient greeted the clinician and was agreeable to participation in the cognitive linguistic treatment session. Objective - Orientation: With the aid of the in-room white board, the patient remains 100% oriented to self, location, month, day of week, date, and year. - The clinician attempted review of the in-depth discussion with the patient and the patient's daughter from the day before. Per patient, "I vaguely remember that." The patient required the clinician to provide topics and goals from the day prior. Following the review, the patient stated his daughter was "just saying that as a threat." Delayed Recall: The patient was provided five items and ask to recall the five items following five minutes. Following the delay, the patient was able to recall one of five items. With a category cue, the patient was able to recall an additional item. Assessment Assessment Current Status: Fair Progress Treatment Plan Continue Plan of Care Speech Short Term Goals Short Term Goals Short Term Goals 1. The patient will display 90% accuracy with memory exercises and strategies with mild clinician verbal cueing. Time Frame-STG: One Week. Speech Intermediate Goals Court Advocate Goals 1. The patient will display improved cognitive linguistic skills for safe discharge to the least restrictive environment. Time Frame: Two Weeks. Speech-Plan Treatment Plan Speech Therapy Treatment Plan: Continue Plan of Care Treatment Duration: Aug 11, 2021 Frequency: Modified Program (IRF) Estimated Hrs Per Day: Other Rehab Potential: Fair Safety Risks/Education Teaching Recipient: Patient Teaching Methods: Discussion Response to Teaching: Reinforcement Needed Education Topics Provided: External Memory Strategies Time Speech Therapy Time In: 09:45 Speech Therapy Time Out: 10:15 Total Billed Time: 30 Billed Treatment Time CARLOS Rubio [facility] Aug 17, 2021 11:11
[2021-08-17] MEDS: [UNRECOGNIZED DRUG - REMARK] PO PRN (11:18)
--- NOTE | 2021-08-17 11:42 | Occupational Ther Daily Note ---
OT Current Status-Daily Note Subjective Pt alert, lying in bed. Pt agrees to therapy. Pt c/o fatigue and leg spasms, nrsg notified. Mental Status/Objective Patient Orientation: Person, Place, Time, Situation Attachments: Suprapubic Catheter ADL-Treatment Pt agrees to shower. Min A for supine to EOB with HOB raised. CGA for SPT from EOB to w/c. Pt sat at sink to complete grooming, declines oral care. CGA to transfer shower bench <-> w/c. Pt sits on shower bench 90% of time to bathe all areas except feet then stands using grabbar to stabilize while assist to cleanse buttocks. Pt able to doff shirt by self, min A donning shirt (assist to thread R UE). Assist to hike over hips to doff/don pants, pt able to doff over feet by self then assist to thread feet into pants. Assist to doff/don socks, pt doffs L shoe by self then is able to place toes into shoe using cable weaver then assist to slide heel into shoe due to back of shoe bending. OT/PT working on toilet transfer simulation of home environment, pt states that toilet is in its own room and front of toilet faces forward toward doorway. Pt states that he has grabbars on outside/inside of door (L side if facing toward toilet). Pt able to complete transfer onto toilet with less assist than transfer off of toilet. Will continue to work on this. After session, pt left in care of PT. All needs met. Therapy Code Descriptions/Definitions Functional [place] Measure: 0=Not Assessed/NA 4=Minimal Assistance 1=Total Assistance 5=Supervision or Setup 2=Maximal Assistance 6=Modified [place] 3=Moderate Assistance 7=Complete IndependenceSCALE: Activities may be completed with or without assistive devices. 6-Jcgbpktzvp-fkyrxkz completes the activity by him/herself with no assistance from a helper. 5-Set-up or Clean-up Assistance-helper sets up or cleans up; patient completes activity. [place] assists only prior to or following the activity. 4-Supervision or Touching Assistance-helper provides verbal cues and/or touching/steadying and/or contact guard assistance as patient completes activity. Assistance may be provided throughout the activity or intermittently. 3-Partial/Moderate Assistance-helper does LESS THAN HALF the effort. [place] lifts, holds or supports trunk or limbs, but provides less than half the effort. 2-Substantial/Maximal Assistance-helper does MORE THAN HALF the effort. [place] lifts or holds trunk or limbs and provides more than half the effort. 2-Huvmvtyis-rzuzis does ALL the effort. Patient does none of the effort to complete the activity. Or, the assistance of 2 or more helpers is required for the patient to complete the activity. If activity was not attempted, code reason: 7-Patient Refused. 9-Not Applicable-not attempted and the patient did not perform the activity before the current illness, exacerbation or injury. 10-Not Attempted due to Environmental Limitations-(lack of equipment, weather restraints, etc.). 88-Not Attempted due to Medical Conditions or Safety Concerns. Oral Hygiene (QC): 7 Bathing Location: L Arm, R Arm, L Upper Leg, R Upper Leg, L Lower Leg (including foot) (washes lower leg assist with foot), R Lower Leg (including foot) (washes lower leg assist with foot), Chest, Abdomen, Perineal Area Shower/Bathe Self (QC): 3 (min A) Upper Body Dressing (QC): 3 Lower Body Dressing (QC): 2 On/Off Footwear: 3 Toileting Hygiene (QC): 2 Toilet Transfer (QC): 3 OT Short Term Goals Short Term Goals Time Frame: Aug 20, 2021 Eatin Oral hygiene: 5 Toileting hygiene: 2 Shower/bathe self: 2 Upper body dressin Lower body dressin Putting on/taking off footwear: 2 OT Intermediate Goals Sheet Metal Worker Maintenance Goals Time Frame: Sep 06, 2021 Eating (QC): 5 Oral Hygiene (QC): 5 Toileting Hygiene (QC): 4 Shower/Bathe Self (QC): 3 Upper Body Dressing (QC): 3 Lower Body Dressing (QC): 3 On/Off Footwear (QC): 3 1=Demonstrate adherence to instructed precautions during ADL tasks. 2=Patient will verbalize/demonstrate understanding of assistive devices/modifications for ADL. 3=Patient will improve strength/tolerance for activity to enable patient to perform ADL's. OT Education/Plan Problem List/Assessment Assessment: Decreased Activ Tolerance, Decreased UE Strength, Impaired Funct Balance, Impaired Self-Care Skills, Restricted Funct UE ROM Discharge Recommendations Plan/Recommendations: Continue POC Treatment Plan/Plan of Care Patient would benefit from OT for education, treatment and training to promote independence in ADL's, mobility, safety and/or upper extremity function for ADL's. Plan of Care: ADL Retraining, Caregiver Training, Cognitive Retraining, Functional Mobility, Group Exercise/Act as Ind, Orthotic Fitting/Training, UE Funct Exercise/Act, UE Neuromus Re-Ed/Coord, W/C Management Training Treatment Duration: Sep 06, 2021 Frequency: At least 5 of 7 days/Wk (IRF) Estimated Hrs Per Day: 1.5 hours per day (75-90min/day ) Agreement: Yes Rehab Potential: Fair Time/GCodes Start Time: 10:15 Stop Time: 11:30 Total Time Billed (hr/min): 75 Billed Treatment Time 1 visit-ADL 5 (75 min) ROSALEE ESQUIVEL Aug 17, 2021 11:42
--- NOTE | 2021-08-17 12:13 | Physical Therapy Daily Note ---
PT Daily Note-Current Subjective Pt sitting in [facility] working w/OT upon arrival. Pt agrees to short PT/OT co-treat then Indiv. PT tx. Mental Status Patient Orientation: Person, Place, Situation Transfers SCALE: Activities may be completed with or without assistive devices. 0-Edocoskqnn-dnzzufy completes the activity by him/herself with no assistance from a helper. 5-Set-up or Clean-up Assistance-helper sets up or cleans up; patient completes activity. [place] assists only prior to or following the activity. 4-Supervision or Touching Assistance-helper provides verbal cues and/or touching/steadying and/or contact guard assistance as patient completes activit y. Assistance may be provided throughout the activity or intermittently. 3-Partial/Moderate Assistance-helper does LESS THAN HALF the effort. [place] lifts, holds or supports trunk or limbs, but provides less than half the effort. 2-Substantial/Maximal Assistance-helper does MORE THAN HALF the effort. [place] lifts or holds trunk or limbs and provides more than half the effort. 4-Mltjoszyt-tdtrxz does ALL the effort. Patient does none of the effort to complete the activity. Or, the assistance of 2 or more helpers is required for the patient to complete the activity. If activity was not attempted, code reason: 7-Patient Refused. 9-Not Applicable-not attempted and the patient did not perform the activity before the current illness, exacerbation or injury. 10-Not Attempted due to Environmental Limitations-(lack of equipment, weather restraints, etc.). 88-Not Attempted due to Medical Conditions or Safety Concerns. Sit to Lying (QC): 4 Sit to Stand (QC): 3 Weight Bearing Full Weight Bearing Full Weight Bearing Gait Training Does the Patient Walk?: Yes Distance: 15' x8 Walk 10 feet (QC): 4 Walk 50 ft with 2 Turns(QC): 4 Gait Persons Needed: 1 uses hallway handrail on L side Wheelchair Training Does the Pt Use a Wheelchair?: Yes Wheel 50 ft with 2 turns (QC): 4 Wheel 150 ft (QC): 4 Type of Wheelchair: Manual Treatments [id number]: OT/PT working on toilet transfer simulation of home environment, pt states that toilet is in its own room and front of toilet faces forward toward doorway. Pt states that he has grabbars on outside/inside of door (L side if facing toward toilet). Pt able to complete transfer onto toilet with less assist than transfer off of toilet. Will continue to work on this. OT departs at this time. PT works w/pt on walking in hallway using railing on L side as pt walks at home. [facility] follows pt. Pt amb. 15' x8 attempts, RB after each one. Pt returns to room to rest Supine in bed. 12:45-1300: CERTIFIED ART THERAPIST issued and reviewed Supine & Seated Ex. Pt resting supine in bed after finishing lunch. All needs met, call light in hand. Assessment Current Status: Fair Progress Pt fatigues quickly. Pt also dealing w/leg spasms during tx, Nursing aware. PT Short Term Goals Short Term Goals Time Frame: Aug 17, 2021 Roll Left & Right: 3 (Ed) Sit to lyin (Ed) Lying to sitting on side of be: 3 (Ed) Sit to stand: 4 (CGA) Chair/zkj-ou-zkiou transfer: 4 (CGA) Walk 10 feet: 4 (CGA) PT Fdc Goals Retail Advertising Sales Manager Goals PT Retail Advertising Sales Manager Goals Time Frame: Aug 31, 2021 Roll Left & Right (QC): 4 (SBA) Sit to Lying (QC): 4 (SBA) Lying-Sitting on Side/Bed(QC): 4 (SBA) Sit to Stand (QC): 4 (SBA) Chair/Bvj-gv-Rbuwk Xfer(QC): 4 (SBA) Toilet Transfer (QC): 4 (SBA) Car Transfer (QC): 4 (SBA) Does the Patient Walk: Yes Walk 10 feet (QC): 4 (SBA) Walk 50ft with 2 Turns (QC): 88 Walk 150 ft (QC): 88 Walking 10ft on Uneven Surface: 4 (CGA) 1 Step (curb) (QC): 88 4 Steps (QC): 88 12 Steps (QC): 88 Picking up an Object (QC): 88 Wheel 50 feet with 2 turns (QC: 6 Wheel 150 feet: 6 PT Plan Problem List Problem List: Activity Tolerance, Functional Strength, Safety, Transfer Treatment/Plan Treatment Plan: Continue Plan of Care Treatment Plan: Bed Mobility, Education, Functional Activity Ki, Functional Strength, Group Therapy, Gait, Safety, Therapeutic Exercise, Transfers Treatment Duration: Aug 31, 2021 Frequency: At least 5 of 7 days/Wk (IRF) Estimated Hrs Per Day: 1.5 hours per day Patient and/or Family Agrees t: Yes Safety Risks/Education Patient Education: Gait Training, Transfer Techniques, Correct Positioning, Safety Issues Teaching Recipient: Patient Teaching Methods: Discussion Response to Teaching: Verbalize Understanding Time/GCodes Time In: 1100 Time Out: 1200 Total Billed Treatment Time: 60 Total Billed Treatment [id number]: 1, FA x2 (30m) & GT x2 (30m) 12:45-1300: 1, EX (15m) CAROLINA THOMPSON CERTIFIED ART THERAPIST Aug 17, 2021 12:13
[2021-08-17] MEDS: TAMSULOSIN 0.4 MG (FLOMAX) CAP PO SCH (17:33)
[2021-08-17 20:00] VITALS: BP 101/50
[2021-08-17] MEDS: rOPINIRole 0.25 MG (REQUIP) TAB PO SCH (20:43)
--- NOTE | 2021-08-18 06:28 | PM&R Progress Note ---
Subjective HPI/CC On Admission Date Seen by Provider: Aug 18, 2021 Time Seen by Provider: 11:00 Subjective/Events-last exam 08/18/2021: Patient having no major issues Supportive care continues No pain Bowels are moving 08/17/21: Patient doing well Changing Nebs to BID prn Using IS Lungs are clear Doing better 08/16/2021: Patient has no issues Lungs are clear today Nebs and IS maintained Pain controlled Daughter thinks he is doing "ok" 08/15/2021: Patient having a good day No pain reported Working on transfers BM+ 08/14/2021: Patient doing well No pain reported Transfers are still slow and with a lot of effort 08/13/2021: Patient doing well Slept well last night Check meds labs No falls 08/12/21: Pt is doing really well Bowels moved today Transfer is working on due to right sided weakness No other new issues 08/11/2021: Pt did pretty well throughout the night Bowels moved last night Overall working on recovering strength Checked meds and labs Labs otherwise stable Review of Systems Neurological: Weakness, Incoordination Objective Exam Vital Signs Vital Signs Date Time Temp Pulse Resp B/P (MAP) Pulse Ox O2 Delivery O2 Flow Rate FiO2 08/18/21 20:52 97 Room Air 08/18/21 19:24 36.7 63 20 114/61 (78) 08/18/21 08:06 0.00 Capillary Refill : General Appearance: No Apparent Distress, WD/WN, Chronically ill, Obese HEENT: PERRL/EOMI, Normal ENT Inspection, Pharynx Normal Neck: Full Range of Motion, Normal Inspection, Non Tender, Supple, Carotid Bruit Respiratory: Chest Non Tender, Lungs Clear, Normal Breath Sounds, No Accessory Muscle Use, No Respiratory Distress Cardiovascular: Regular Rate, Rhythm, No Edema, No Gallop, No JVD, No Murmur, Normal Peripheral Pulses Gastrointestinal: Normal Bowel Sounds, No Organomegaly, No Pulsatile Mass, Non Tender, Soft Back: Normal Inspection, No CVA Tenderness, No Vertebral Tenderness Extremity: Normal Capillary Refill, Normal Inspection, Normal Range of Motion, Non Tender, No Calf Tenderness, No Pedal Edema Neurologic/Psychiatric: Alert, Oriented x3, manager of sales II-XII Norm as Tested, Depressed Affect, Motor Weakness (right sided chronic, generalized all extremities) Skin: Normal Color, Warm/Dry Lymphatic: No Adenopathy Results/Procedures Lab Patient resulted labs reviewed. FIM Transfers Therapy Code Descriptions/Definitions Functional [place] Measure: 0=Not Assessed/NA 4=Minimal Assistance 1=Total Assistance 5=Supervision or Setup 2=Maximal Assistance 6=Modified [place] 3=Moderate Assistance 7=Complete IndependenceSCALE: Activities may be completed with or without assistive devices. 7-Agvnvzyywk-ybfpvwp completes the activity by him/herself with no assistance from a helper. 5-Set-up or Clean-up Assistance-helper sets up or cleans up; patient completes activity. [place] assists only prior to or following the activity. 4-Supervision or Touching Assistance-helper provides verbal cues and/or touching/steadying and/or contact guard assistance as patient completes activity. Assistance may be provided throughout the activity or intermittently. 3-Partial/Moderate Assistance-helper does LESS THAN HALF the effort. [place] l ifts, holds or supports trunk or limbs, but provides less than half the effort. 2-Substantial/Maximal Assistance-helper does MORE THAN HALF the effort. [place] lifts or holds trunk or limbs and provides more than half the effort. 0-Nntnywscs-eoffcn does ALL the effort. Patient does none of the effort to complete the activity. Or, the assistance of 2 or more helpers is required for t he patient to complete the activity. If activity was not attempted, code reason: 7-Patient Refused. 9-Not Applicable-not attempted and the patient did not perform the activity before the current illness, exacerbation or injury. 10-Not Attempted due to Environmental Limitations-(lack of equipment, weather restraints, etc.). 88-Not Attempted due to Medical Conditions or Safety Concerns. Roll Left to Right (QC): 3 Sit to Lying (QC): 4 Sit to Stand (QC): 3 Chair/Omq-ey-Tcgml Xfer(QC): 3 Car Transfer (QC): 3 Gait Training Does the Patient Walk?: Yes Distance: 15' x8 Walk 10 feet (QC): 4 Walk 50 ft with 2 Turns(QC): 4 Walk 150 ft (QC): 88 Walking 10ft/uneven surface-QC: 88 Gait Persons Needed: 1 Gait Assistive Device: Cane Single Point Wheelchair Training Does the Pt Use a Wheelchair?: Yes Distance: 50' Wheel 50 ft with 2 turns (QC): 4 Wheel 150 ft (QC): 4 Type of Wheelchair: Manual Stair Training 1 Step (curb) (QC): 88 4 Steps (QC): 88 12 Steps (QC): 88 Balance Picking up an Object (QC): 88 ADL-Treatment Eating (QC): 5 Oral Hygiene (QC): 7 Bathing Location: L Arm, R Arm, L Upper Leg, R Upper Leg, L Lower Leg (including foot) (washes lower leg assist with foot), R Lower Leg (including foot) (washes lower leg assist with foot), Chest, Abdomen, Perineal Area Shower/Bathe Self (QC): 3 (min A) Upper Body Dressing (QC): 3 Lower Body Dressing (QC): 2 On/Off Footwear (QC): 3 Toileting Hygiene (QC): 2 Toilet Transfer (QC): 3 Assessment/Plan Assessment and Plan Assess & Plan/Chief Complaint Assessment: Debility Pacemaker Neurogenic bladder s/p UTI catheter associated DM CVA 3 years ago with right sided weakness Advanced age RLS Plan: PT OT per protocol Pain control Home meds Cardiology consult 08/11/21: Supportive care Cardiology appreciated 08/12/21: Monitor closely Complete abx 08/13/2021: Supportive care Aggressive rehab 08/14/2021: Monitor BP Fall risk 08/15/2021: Aggressive rehab 08/16/2021: Monitor closely Fall risk 08/17/21: Monitor progress DC soon 08/18/2021: Supportive care Aggressive rehab (1) Debility LIBBY LEAL DO Aug 18, 2021 06:28
[2021-08-18] MEDS: metFORMIN 500 MG (GLUCOPHAGE) TAB PO SCH ×2 (07:12→17:11)
[2021-08-18] MEDS: MULTIVIT W/MINERALS TAB (THERAGRAN M) PO SCH (07:12)
[2021-08-18 07:24] VITALS: BP 110/56
[2021-08-18] MEDS: MIRABEGRON 25 MG TAB (MYRBETRIQ) PO SCH (08:29)
[2021-08-18] MEDS: ASPIRIN E.C. 81 MG (ECOTRIN) TAB PO SCH (08:29)
[2021-08-18] MEDS: TROSPIUM 20 MG (SANCTURA) TAB PO SCH ×2 (08:29→20:39)
[2021-08-18] MEDS: lisINopril 5 MG (PRINIVIL) TABLET PO SCH (08:29)
[2021-08-18] MEDS: CLOPIDOGREL 75 MG (PLAVIX) TABLET PO SCH (08:29)
[2021-08-18] MEDS: FINASTERIDE (PROSCAR) 5 MG TAB PO SCH (08:29)
[2021-08-18] MEDS: amLODIPine 10 MG (NORVASC) TAB PO SCH (08:29)
[2021-08-18] MEDS: DOCUSATE SODIUM 100 MG (COLACE) CAP PO SCH ×2 (08:52→20:43)
[2021-08-18] MEDS: polyethylene glycoL POWDER 17 GM (MIRALAX) PACK PO SCH ×2 (08:52→20:43)
[2021-08-18] MEDS: SENNA W/DOCUSATE (SENOKOT S) TABLET PO SCH ×2 (08:52→20:43)
--- NOTE | 2021-08-18 09:16 | Cardiology Progress Note ---
Subjective Date Seen by Provider: Aug 18, 2021 Time Seen by Provider: 09:15 Subjective/Events-last exam Patient was seen at bedside laying down comfortably Denied any chest pain or shortness of breath. Review of Systems General: No Chills, No Night Sweats, No Fatigue, No Malaise, No Appetite, No Other HEENT: No Head Aches, No Visual Changes, No Eye Pain, No Ear Pain, No Dysphasi a, No Sinus Congestion, No Post Nasal Drip, No Sore Throat, No Other Pulmonary: No Dyspnea, No Cough, No Pleuritic Chest Pain, No Other Cardiovascular: No: Chest Pain, Palpitations, Orthopnea, Paroxysmal Noc. Dys pnea, Edema, Lt Headedness, Other Objective-Cardiology Exam Last Set of Vital Signs Vital Signs 08/18/21 08/18/21 07:24 08:06 Temp 36.9 Pulse 65 Resp 20 B/P (MAP) 110/56 (74) Pulse Ox 98 O2 Delivery Room Air O2 Flow Rate 0.00 I&O Intake and Output 08/18/21 00:00 Intake Total 1130 ml Output Total 825 ml Balance 305 ml Intake Oral 1130 ml Output Urine Total 825 ml # Voids 1 General: Alert, Oriented X3, Cooperative HEENT: Atraumatic, PERRLA Neck: Supple, No JVD, No Thyromegaly Lungs: Clear to Auscultation, Normal Air Movement Heart: Regular Rate, Normal S1, Normal S2, No Murmurs Abdomen: Normal Bowel Sounds, Soft, No Tenderness, No Hepatosplenomegaly, No Masses Extremities: No Clubbing, No Cyanosis, No Edema, Normal Pulses, No Tenderness/Swelling Skin: No Rashes, No Breakdown, No Significant Lesion Neuro: Normal Speech, Normal Tone, Sensation Intact Psych/Mental Status: Mental Status NL, Mood NL A/P-Cardiology Admission Diagnosis PPM CVA HTN HLP Assessment/Plan Hypertension, better controlled at this time. Continue to monitor Hyperlipidemia, maintained on statin, monitor lipids. Hx of PPM, [employer]. Follows with Dr. Rush. 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 BPH Extobaccoism JOSE D GANNON MD Aug 18, 2021 09:16
--- NOTE | 2021-08-18 09:54 | Occupational Ther Daily Note ---
OT Current Status-Daily Note Subjective Pt alert, sitting in recliner. Pt agrees to therapy. No c/o pain. Mental Status/Objective Patient Orientation: Person, Place, Time, Situation Attachments: Suprapubic Catheter ADL-Treatment Therapy Code Descriptions/Definitions Functional [place] Measure: 0=Not Assessed/NA 4=Minimal Assistance 1=Total Assistance 5=Supervision or Setup 2=Maximal Assistance 6=Modified [place] 3=Moderate Assistance 7=Complete IndependenceSCALE: Activities may be completed with or without assistive devices. 4-Ggrbbroewu-oskckja completes the activity by him/herself with no assistance from a helper. 5-Set-up or Clean-up Assistance-helper sets up or cleans up; patient completes activity. [place] assists only prior to or following the activity. 4-Supervision or Touching Assistance-helper provides verbal cues and/or touching/steadying and/or contact guard assistance as patient completes activity. Assistance may be provided throughout the activity or intermittently. 3-Partial/Moderate Assistance-helper does LESS THAN HALF the effort. [place] lifts, holds or supports trunk or limbs, but provides less than half the effort. 2-Substantial/Maximal Assistance-helper does MORE THAN HALF the effort. [place] lifts or holds trunk or limbs and provides more than half the effort. 7-Wigqllyvk-gdoomt does ALL the effort. Patient does none of the effort to complete the activity. Or, the assistance of 2 or more helpers is required for the patient to complete the activity. If activity was not attempted, code reason: 7-Patient Refused. 9-Not Applicable-not attempted and the patient did not perform the activity before the current illness, exacerbation or injury. 10-Not Attempted due to Environmental Limitations-(lack of equipment, weather restraints, etc.). 88-Not Attempted due to Medical Conditions or Safety Concerns. Other Treatment Pt working on R UE wt bearing, dynamic sitting balance and reach/grasping items off of feet for ADL tasks. Dowel man exercises with dowel placed perpendicular on parallel bars with B hands grasping dowel then pushing dowel forward with B UE for stretching R shldr with active movement gravity eliminated. Pt continues to work on reaching lower legs/feet to increase mobility during lower body dressing. Pt is fearful of twisting toward R side and bending to reach towards floor when completing ADLs. Pt able to reach and place rings on foot then take off with L hand then twist toward R side and place. Pt completes this with difficulty and increased time due to overall tightness, holding breath (SOA). Pt working on standing at parallel bars and wt bearing through R UE though pt has tendency to lean toward L side and not place wt equally on B LE's. Pt then working on simulating home bathroom transfer. Discuss the need for BSC with pt due to not ambulating with SPC at this time and fearful/anxiety about changing transfer techniques. After therapy, pt lying in bed with call light/phone in reach. All needs met in room. OT Short Term Goals Short Term Goals Time Frame: Aug 20, 2021 Eatin Oral hygiene: 5 Toileting hygiene: 2 Shower/bathe self: 2 Upper body dressin Lower body dressin Putting on/taking off footwear: 2 OT Manager Operations And Procurement Goals Manager Operations And Procurement Goals Time Frame: Sep 06, 2021 Eating (QC): 5 Oral Hygiene (QC): 5 Toileting Hygiene (QC): 4 Shower/Bathe Self (QC): 3 Upper Body Dressing (QC): 3 Lower Body Dressing (QC): 3 On/Off Footwear (QC): 3 1=Demonstrate adherence to instructed precautions during ADL tasks. 2=Patient will verbalize/demonstrate understanding of assistive devic es/modifications for ADL. 3=Patient will improve strength/tolerance for activity to enable patient to perform ADL's. OT Education/Plan Problem List/Assessment Assessment: Decreased Activ Tolerance, Decreased UE Strength, Impaired Coordination, Impaired Funct Balance, Impaired Self-Care Skills, Restricted Funct UE ROM Discharge Recommendations Plan/Recommendations: Continue POC Treatment Plan/Plan of Care Patient would benefit from OT for education, treatment and training to promote independence in ADL's, mobility, safety and/or upper extremity function for ADL's. Plan of Care: ADL Retraining, Caregiver Training, Cognitive Retraining, Fu nctional Mobility, Group Exercise/Act as Ind, Orthotic Fitting/Training, UE Funct Exercise/Act, UE Neuromus Re-Ed/Coord, W/C Management Training Treatment Duration: Sep 06, 2021 Frequency: At least 5 of 7 days/Wk (IRF) Estimated Hrs Per Day: 1.5 hours per day (75-90min/day ) Agreement: Yes Rehab Potential: Fair Time/GCodes Start Time: 08:30 Stop Time: 09:45 Total Time Billed (hr/min): 75 Billed Treatment Time 1 visit-NM 3 (45 min) FA 2 (30 min) ROSALEE ESQUIVEL Aug 18, 2021 09:54
--- NOTE | 2021-08-18 10:34 | Speech Therapy Daily Note ---
Speech Daily Progress Note Subjective Date Seen by Provider: Aug 18, 2021 Time Seen by Provider: 09:45 The patient was lying in bed, awake and alert upon entrance to his room by the clinician. The patient greeted the clinician appropriately and was agreeable to participation in the cognitive linguistic treatment session. Objective - Functional Safety Problem Solving: The clinician discussed functional safety issues in the home and encouraged the patient to provide an appropriate solution. The scenario of a possible fall was provided to the patient. Per patient, "Hopefully my daughter picks it up on the camera." The patient was reminded of the time he remained on the floor for five hours and what a possible solution could be for his improved safety. The patient responded, "That wouldn't have happened if she checked her damn camera, she gets sloppy." The patient was encouraged to hold self-accountability for his safety. A life alert system was discussed and the patient laughed at the clinician's recommendation. The possible fire emergency was discussed and the patient stated, "I'd call my daughter and tell her to call the fire department." The patient was encouraged to directly contact the fire department. Per patient, he has a phone in his room and the kitchen but they are land lines and not portable. The patient does not own a cell phone. The clinician does hold concerns regarding the patient's problem solving and executive functioning decisions. Assessment Assessment Current Status: Poor Progress Treatment Plan Continue Plan of Care Speech Short Term Goals Short Term Goals Short Term Goals 1. The patient will display 90% accuracy with memory exercises and strategies with mild clinician verbal cueing. Time Frame-STG: One Week. Speech Senior Care Goals Public Relations Coordinator Goals 1. The patient will display improved cognitive linguistic skills for safe discharge to the least restrictive environment. Time Frame: Two Weeks. Speech-Plan Treatment Plan Speech Therapy Treatment Plan: Continue Plan of Care Treatment Duration: Aug 11, 2021 Frequency: Modified Program (IRF) Estimated Hrs Per Day: Other Rehab Potential: Fair Safety Risks/Education Teaching Recipient: Patient Teaching Methods: Discussion Response to Teaching: Reinforcement Needed Education Topics Provided: Safety Problem Solving Time Speech Therapy Time In: 09:45 Speech Therapy Time Out: 10:15 Total Billed Time: 30 Billed Treatment Time 1CARLOS ELIZ[address] ST Aug 18, 2021 10:34
--- NOTE | 2021-08-18 12:03 | Physical Therapy Daily Note ---
PT Daily Note-Current Subjective Pt. agrees to Rx and feels he is ready to go home . States his daughter will help him Pain Location: No Pain Reported Mental Status Patient Orientation: Normal For Age Attachments: Suprapubic Catheter Transfers SCALE: Activities may be completed with or without assistive devices. 5-Rzhssizyse-fkecuqh completes the activity by him/herself with no assistance from a helper. 5-Set-up or Clean-up Assistance-helper sets up or cleans up; patient completes activity. [place] assists only prior to or following the activity. 4-Supervision or Touching Assistance-helper provides verbal cues and/or touching/steadying and/or contact guard assistance as patient completes activity. Assistance may be provided throughout the activity or intermittently. 3-Partial/Moderate Assistance-helper does LESS THAN HALF the effort. [place] lifts, holds or supports trunk or limbs, but provides less than half the effort. 2-Substantial/Maximal Assistance-helper does MORE THAN HALF the effort. [place] lifts or holds trunk or limbs and provides more than half the effort. 6-Oqzkovafc-bgljzm does ALL the effort. Patient does none of the effort to complete the activity. Or, the assistance of 2 or more helpers is required for the patient to complete the activity. If activity was not attempted, code reason: 7-Patient Refused. 9-Not Applicable-not attempted and the patient did not perform the activity before the current illness, exacerbation or injury. 10-Not Attempted due to Environmental Limitations-(lack of equipment, weather restraints, etc.). 88-Not Attempted due to Medical Conditions or Safety Concerns. Roll Left & Right (QC): 6 Sit to Lying (QC): 6 Lying to Sitting/Side of Bed(Q: 3 Sit to Stand (QC): 4 Chair/Mab-yz-Upkfd Xfer(QC): 4 Weight Bearing Full Weight Bearing Full Weight Bearing Gait Training Does the Patient Walk?: Yes Walk 10 feet (QC): 4 Gait Persons Needed: 1 single rail CGA and w/c to follow. 10ft, 5ft, instruction to concentrate on broader ROB Exercises Supine Ex: Bridging, Ankle pumps, Quad Set, Rolling, Glut sets, Heel Slides, Short Arc Quads, Scooting (up in bed ), Straight leg raise, Hip abd/add Supine Reps: 20 (15) Seated Therapy Exercises: Ankle pumps, Sit to stand, Long arc quads, Hip flexion Seated Reps: 8 Treatments supine and sit therx LEs, TRFs sup to sit and SPT w/c to bed and back , gait at rail, Assessment Current Status: Good Progress gives full effort, appears pt. is at PLOF, needs rest breaks during rx as he fatigues PT Short Term Goals Short Term Goals Time Frame: Aug 17, 2021 Roll Left & Right: 3 (Ed) Sit to lyin (Ed) Lying to sitting on side of be: 3 (Ed) Sit to stand: 4 (CGA) Chair/mcj-ef-usrxl transfer: 4 (CGA) Walk 10 feet: 4 (CGA) PT Skilled Nursing Goals Skilled Nursing Goals PT Skilled Nursing Goals Time Frame: Aug 31, 2021 Roll Left & Right (QC): 4 (SBA) Sit to Lying (QC): 4 (SBA) Lying-Sitting on Side/Bed(QC): 4 (SBA) Sit to Stand (QC): 4 (SBA) Chair/Xeu-he-Qhsar Xfer(QC): 4 (SBA) Toilet Transfer (QC): 4 (SBA) Car Transfer (QC): 4 (SBA) Does the Patient Walk: Yes Walk 10 feet (QC): 4 (SBA) Walk 50ft with 2 Turns (QC): 88 Walk 150 ft (QC): 88 Walking 10ft on Uneven Surface: 4 (CGA) 1 Step (curb) (QC): 88 4 Steps (QC): 88 12 Steps (QC): 88 Picking up an Object (QC): 88 Wheel 50 feet with 2 turns (QC: 6 Wheel 150 feet: 6 PT Plan Treatment/Plan Treatment Plan: Continue Plan of Care Treatment Plan: Bed Mobility, Education, Functional Activity Ki, Functional Strength, Group Therapy, Gait, Safety, Therapeutic Exercise, Transfers Treatment Duration: Aug 31, 2021 Frequency: At least 5 of 7 days/Wk (IRF) Estimated Hrs Per Day: 1.5 hours per day Patient and/or Family Agrees t: Yes Safety Risks/Education Patient Education: Gait Training, Transfer Techniques, Correct Positioning, W/C Management, Disease Process, Safety Issues Teaching Recipient: Patient Teaching Methods: Demonstration, Discussion Response to Teaching: Verbalize Understanding, Return Demonstration, Reinforcement Needed Time/GCodes Time In: 1100 Time Out: 1215 Total Billed Treatment Time: 75 Total Billed Treatment 1,FA35m,EX30m,wc10 SAUMYA REYES SCANNER OPERATOR Aug 18, 2021 12:03
[2021-08-18] MEDS: TAMSULOSIN 0.4 MG (FLOMAX) CAP PO SCH (17:11)
[2021-08-18 19:24] VITALS: BP 114/61
[2021-08-18] MEDS: rOPINIRole 0.25 MG (REQUIP) TAB PO SCH (20:39)
[2021-08-19] MEDS: MULTIVIT W/MINERALS TAB (THERAGRAN M) PO SCH (07:09)
[2021-08-19] MEDS: metFORMIN 500 MG (GLUCOPHAGE) TAB PO SCH ×2 (07:09→17:25)
[2021-08-19 07:29] VITALS: BP 104/58
[2021-08-19] MEDS: MIRABEGRON 25 MG TAB (MYRBETRIQ) PO SCH (07:38)
[2021-08-19] MEDS: amLODIPine 10 MG (NORVASC) TAB PO SCH (08:21)
[2021-08-19] MEDS: TROSPIUM 20 MG (SANCTURA) TAB PO SCH ×2 (08:21→20:47)
[2021-08-19] MEDS: ASPIRIN E.C. 81 MG (ECOTRIN) TAB PO SCH (08:21)
[2021-08-19] MEDS: lisINopril 5 MG (PRINIVIL) TABLET PO SCH (08:21)
[2021-08-19] MEDS: FINASTERIDE (PROSCAR) 5 MG TAB PO SCH (08:21)
[2021-08-19] MEDS: CLOPIDOGREL 75 MG (PLAVIX) TABLET PO SCH (08:21)
[2021-08-19] MEDS: SENNA W/DOCUSATE (SENOKOT S) TABLET PO SCH ×2 (08:42→19:56)
[2021-08-19] MEDS: DOCUSATE SODIUM 100 MG (COLACE) CAP PO SCH ×2 (08:42→19:54)
[2021-08-19] MEDS: polyethylene glycoL POWDER 17 GM (MIRALAX) PACK PO SCH ×2 (08:42→19:55)
--- NOTE | 2021-08-19 10:31 | Physical Therapy Daily Note ---
PT Daily Note-Current Subjective Pt. up in w/c on arrival and c/o he is so tired and is angry that he has been sitting up in the w/c and could just as easily be laying down in bed resting. Pt. cannot remember what time he got up this morning and whether or not he slept well last night. with further investigation it was found pt. had requested to get on BSC, after using it his breakfast arrived and he stayed up in w/c to eat. This MARINE ELECTRONICS TECHNICIAN arrived at 905 , pt. apparently feels it has been a longer period of time. No c/o pain, just fatigue Pain Location: No Pain Reported Mental Status Patient Orientation: Confused (perhaps) Attachments: Suprapubic Catheter Transfers SCALE: Activities may be completed with or without assistive devices. 2-Dafjnqilht-dtscuvi completes the activity by him/herself with no assistance from a helper. 5-Set-up or Clean-up Assistance-helper sets up or cleans up; patient completes activity. [place] assists only prior to or following the activity. 4-Supervision or Touching Assistance-helper provides verbal cues and/or touching/steadying and/or contact guard assistance as patient completes activity. Assistance may be provided throughout the activity or intermittently. 3-Partial/Moderate Assistance-helper does LESS THAN HALF the effort. [place] lifts, holds or supports trunk or limbs, but provides less than half the effort. 2-Substantial/Maximal Assistance-helper does MORE THAN HALF the effort. [place] lifts or holds trunk or limbs and provides more than half the effort. 6-Yyyjtukcc-gwgxgc does ALL the effort. Patient does none of the effort to complete the activity. Or, the assistance of 2 or more helpers is required for the patient to complete the activity. If activity was not attempted, code reason: 7-Patient Refused. 9-Not Applicable-not attempted and the patient did not perform the activity before the current illness, exacerbation or injury. 10-Not Attempted due to Environmental Limitations-(lack of equipment, weather restraints, etc.). 88-Not Attempted due to Medical Conditions or Safety Concerns. Roll Left & Right (QC): 4 (using bed rail) Sit to Lying (QC): 4 Lying to Sitting/Side of Bed(Q: 3 Sit to Stand (QC): 4 Chair/Vpd-ap-Hkeax Xfer(QC): 4 all SPTs are are with pts w/c being very close to destination or visa versa, pt. uses L hand/arm and twists himself sometimes in precarious way to get to destination , all CGA and assist to ready environment and equipment for the TRF Weight Bearing Full Weight Bearing Full Weight Bearing Gait Training Does the Patient Walk?: Yes Walk 10 feet (QC): 4 Gait Persons Needed: 1 gait at fixed rail in arauz with CGA and w/c close behind pt. walked 12 feet x [address] R foot with good ROB for stability Wheelchair Training Does the Pt Use a Wheelchair?: Yes Wheel 50 ft with 2 turns (QC): 6 Type of Wheelchair: Manual Exercises Supine Ex: Bridging, Ankle pumps, Quad Set, Rolling, Glut sets, Heel Slides, Short Arc Quads, Scooting, Straight leg raise, Hip abd/add Supine Reps: 20 NuStep Minutes: 10 NuStep Workload: 2 Assessment Current Status: Good Progress PT Short Term Goals Short Term Goals Time Frame: Aug 17, 2021 Roll Left & Right: 3 (Ed) Sit to lyin (Ed) Lying to sitting on side of be: 3 (Ed) Sit to stand: 4 (CGA) Chair/opu-uc-mfiiq transfer: 4 (CGA) Walk 10 feet: 4 (CGA) PT Penitentiary Goals Car Wiper Goals PT Penitentiary Goals Time Frame: Aug 31, 2021 Roll Left & Right (QC): 4 (SBA) Sit to Lying (QC): 4 (SBA) Lying-Sitting on Side/Bed(QC): 4 (SBA) Sit to Stand (QC): 4 (SBA) Chair/Erv-es-Mghvr Xfer(QC): 4 (SBA) Toilet Transfer (QC): 4 (SBA) Car Transfer (QC): 4 (SBA) Does the Patient Walk: Yes Walk 10 feet (QC): 4 (SBA) Walk 50ft with 2 Turns (QC): 88 Walk 150 ft (QC): 88 Walking 10ft on Uneven Surface: 4 (CGA) 1 Step (curb) (QC): 88 4 Steps (QC): 88 12 Steps (QC): 88 Picking up an Object (QC): 88 Wheel 50 feet with 2 turns (QC: 6 Wheel 150 feet: 6 PT Plan Treatment/Plan Treatment Plan: Continue Plan of Care Treatment Plan: Bed Mobility, Education, Functional Activity Ki, Functional Strength, Group Therapy, Gait, Safety, Therapeutic Exercise, Transfers Treatment Duration: Aug 31, 2021 Frequency: At least 5 of 7 days/Wk (IRF) Estimated Hrs Per Day: 1.5 hours per day Patient and/or Family Agrees t: Yes Safety Risks/Education Patient Education: Gait Training, Transfer Techniques, Correct Positioning, Disease Process, Safety Issues Teaching Recipient: Patient Teaching Methods: Demonstration, Discussion Response to Teaching: Verbalize Understanding, Return Demonstration, Reinforcement Needed Time/GCodes Time In: 900 Time Out: 1015 Total Billed Treatment Time: 75 Total Billed Treatment 1,FA30m,GT15m,EX30m SAUMYA REYES MARINE ELECTRONICS TECHNICIAN Aug 19, 2021 10:31
--- NOTE | 2021-08-19 10:40 | PM&R Progress Note ---
Subjective HPI/CC On Admission Date Seen by Provider: Aug 19, 2021 Time Seen by Provider: 12:00 Subjective/Events-last exam 08/19/21: Pt is doing pretty well No concerns at this point Bowels moved today Ate a lot more on his meals today No new issues 08/18/2021: Patient having no major issues Supportive care continues No pain Bowels are moving 08/17/21: Patient doing well Changing Nebs to BID prn Using IS Lungs are clear Doing better 08/16/2021: Patient has no issues Lungs are clear today Nebs and IS maintained Pain controlled Daughter thinks he is doing "ok" 08/15/2021: Patient having a good day No pain reported Working on transfers BM+ 08/14/2021: Patient doing well No pain reported Transfers are still slow and with a lot of effort 08/13/2021: Patient doing well Slept well last night Check meds labs No falls 08/12/21: Pt is doing really well Bowels moved today Transfer is working on due to right sided weakness No other new issues 08/11/2021: Pt did pretty well throughout the night Bowels moved last night Overall working on recovering strength Checked meds and labs Labs otherwise stable Review of Systems General: Fatigue, Malaise Neurological: Weakness Objective Exam Vital Signs Vital Signs Date Time Temp Pulse Resp B/P (MAP) Pulse Ox O2 Delivery O2 Flow Rate FiO2 08/19/21 08:30 99 Room Air 08/19/21 07:29 36.4 96 18 104/58 (73) 08/18/21 08:06 0.00 Capillary Refill : General Appearance: No Apparent Distress, WD/WN, Chronically ill, Obese HEENT: PERRL/EOMI, Normal ENT Inspection, Pharynx Normal Neck: Full Range of Motion, Normal Inspection, Non Tender, Supple, Carotid Bruit Respiratory: Chest Non Tender, Lungs Clear, Normal Breath Sounds, No Accessory Muscle Use, No Respiratory Distress Cardiovascular: Regular Rate, Rhythm, No Edema, No Gallop, No JVD, No Murmur, Normal Peripheral Pulses Gastrointestinal: Normal Bowel Sounds, No Organomegaly, No Pulsatile Mass, Non Tender, Soft Back: Normal Inspection, No CVA Tenderness, No Vertebral Tenderness Extremity: Normal Capillary Refill, Normal Inspection, Normal Range of Motion, Non Tender, No Calf Tenderness, No Pedal Edema Neurologic/Psychiatric: Alert, Oriented x3, milling machine tender II-XII Norm as Tested, Depressed Affect, Motor Weakness (right sided chronic, generalized all extremities) Skin: Normal Color, Warm/Dry Lymphatic: No Adenopathy Results/Procedures Lab Patient resulted labs reviewed. FIM Transfers Therapy Code Descriptions/Definitions Functional [place] Measure: 0=Not Assessed/NA 4=Minimal Assistance 1=Total Assistance 5=Supervision or Setup 2=Maximal Assistance 6=Modified [place] 3=Moderate Assistance 7=Complete IndependenceSCALE: Activities may be completed with or without assistive devices. 0-Bhfaqsqhcv-zywxvkw completes the activity by him/herself with no assistance from a helper. 5-Set-up or Clean-up Assistance-helper sets up or cleans up; patient completes activity. [place] assists only prior to or following the activity. 4-Supervision or Touching Assistance-helper provides verbal cues and/or touching/steadying and/or contact guard assistance as patient completes a ctivity. Assistance may be provided throughout the activity or intermittently. 3-Partial/Moderate Assistance-helper does LESS THAN HALF the effort. [place] lifts, holds or supports trunk or limbs, but provides less than half the effort. 2-Substantial/Maximal Assistance-helper does MORE THAN HALF the effort. [place] lifts or holds trunk or limbs and provides more than half the effort. 5-Cwicxspav-mgnucw does ALL the effort. Patient does none of the effort to complete the activity. Or, the assistance of 2 or more helpers is required for the patient to complete the activity. If activity was not attempted, code reason: 7-Patient Refused. 9-Not Applicable-not attempted and the patient did not perform the activity before the current illness, exacerbation or injury. 10-Not Attempted due to Environmental Limitations-(lack of equipment, weather restraints, etc.). 88-Not Attempted due to Medical Conditions or Safety Concerns. Roll Left to Right (QC): 6 Sit to Lying (QC): 6 Sit to Stand (QC): 4 Chair/Qle-yh-Qbhvf Xfer(QC): 4 Car Transfer (QC): 3 Gait Training Does the Patient Walk?: Yes Distance: 15' x8 Walk 10 feet (QC): 4 Walk 50 ft with 2 Turns(QC): 4 Walk 150 ft (QC): 88 Walking 10ft/uneven surface-QC: 88 Gait Persons Needed: 1 Gait Assistive Device: Cane Single Point Wheelchair Training Does the Pt Use a Wheelchair?: Yes Distance: 50' Wheel 50 ft with 2 turns (QC): 4 Wheel 150 ft (QC): 4 Type of Wheelchair: Manual Stair Training 1 Step (curb) (QC): 88 4 Steps (QC): 88 12 Steps (QC): 88 Balance Picking up an Object (QC): 88 ADL-Treatment Eating (QC): 5 Oral Hygiene (QC): 7 Bathing Location: L Arm, R Arm, L Upper Leg, R Upper Leg, L Lower Leg (including foot) (washes lower leg assist with foot), R Lower Leg (including foot) (washes lower leg assist with foot), Chest, Abdomen, Perineal Area Shower/Bathe Self (QC): 3 (min A) Upper Body Dressing (QC): 3 Lower Body Dressing (QC): 2 On/Off Footwear (QC): 3 Toileting Hygiene (QC): 2 Toilet Transfer (QC): 3 Assessment/Plan Assessment and Plan Assess & Plan/Chief Complaint Assessment: Debility Pacemaker Neurogenic bladder s/p UTI catheter associated DM 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
--- NOTE | 2021-08-19 11:40 | Occupational Ther Daily Note ---
OT Current Status-Daily Note Subjective Pt dozing in bed, woke when ARRIAGA entered. Pt agrees to therapy. No c/o pain. Mental Status/Objective Patient Orientation: Person, Place, Time, Situation Attachments: Suprapubic Catheter ADL-Treatment Pt agrees to shower. Min A for supine to EOB with HOB raised. CGA for SPT from EOB to w/c. Pt sat at sink to complete grooming and oral care independently. CGA to transfer shower bench <-> w/c. Pt sits on shower bench 90% of time to bathe all areas except feet then stands using grabbar to stabilize while assist to cleanse buttocks. Pt able to doff shirt by self, min A donning shirt (assist to thread R UE). Assist to hike over hips to doff/don pants, pt able to doff over feet by self then assist to thread feet into pants. Assist to doff/don socks, pt doffs L shoe by self then is able to place toes into shoe using flatwork assembler then assist to slide heel into shoe due to back of shoe bending. After session, pt lying in bed with call light/phone in reach. All needs met in room. Therapy Code Descriptions/Definitions Functional [place] Measure: 0=Not Assessed/NA 4=Minimal Assistance 1=Total Assistance 5=Supervision or Setup 2=Maximal Assistance 6=Modified [place] 3=Moderate Assistance 7=Complete IndependenceSCALE: Activities may be completed with or without assistive devices. 6-Hacsihvlso-pmrlscz completes the activity by him/herself with no assistance from a helper. 5-Set-up or Clean-up Assistance-helper sets up or cleans up; patient completes activity. [place] assists only prior to or following the activity. 4-Supervision or Touching Assistance-helper provides verbal cues and/or touching/steadying and/or contact guard assistance as patient completes activity. Assistance may be provided throughout the activity or intermittently. 3-Partial/Moderate Assistance-helper does LESS THAN HALF the effort. [place] lifts, holds or supports trunk or limbs, but provides less than half the effort. 2-Substantial/Maximal Assistance-helper does MORE THAN HALF the effort. [place] lifts or holds trunk or limbs and provides more than half the effort. 0-Bqkrbfcfm-iwgwul does ALL the effort. Patient does none of the effort to complete the activity. Or, the assistance of 2 or more helpers is required for the patient to complete the activity. If activity was not attempted, code reason: 7-Patient Refused. 9-Not Applicable-not attempted and the patient did not perform the activity before the current illness, exacerbation or injury. 10-Not Attempted due to Environmental Limitations-(lack of equipment, weather restraints, etc.). 88-Not Attempted due to Medical Conditions or Safety Concerns. Oral Hygiene (QC): 6 Bathing Location: L Arm, R Arm, L Upper Leg, R Upper Leg, Chest, Abdomen, Perineal Area Shower/Bathe Self (QC): 3 Upper Body Dressing (QC): 3 Lower Body Dressing (QC): 2 On/Off Footwear: 2 OT Short Term Goals Short Term Goals Time Frame: Aug 20, 2021 Eatin Oral hygiene: 5 Toileting hygiene: 2 Shower/bathe self: 2 Upper body dressin Lower body dressin Putting on/taking off footwear: 2 OT Snf Goals Snf Goals Time Frame: Sep 06, 2021 Eating (QC): 5 Oral Hygiene (QC): 5 Toileting Hygiene (QC): 4 Shower/Bathe Self (QC): 3 Upper Body Dressing (QC): 3 Lower Body Dressing (QC): 3 On/Off Footwear (QC): 3 1=Demonstrate adherence to instructed precautions during ADL tasks. 2=Patient will verbalize/demonstrate understanding of assistive devices/modifications for ADL. 3=Patient will improve strength/tolerance for activity to enable patient to perform ADL's. OT Education/Plan Problem List/Assessment Assessment: Decreased Activ Tolerance, Decreased UE Strength, Impaired Bed Mobility, Impaired Self-Care Skills, Restricted Funct UE ROM Discharge Recommendations Plan/Recommendations: Continue POC Treatment Plan/Plan of Care Patient would benefit from OT for education, treatment and training to promote independence in ADL's, mobility, safety and/or upper extremity function for ADL's. Plan of Care: ADL Retraining, Caregiver Training, Cognitive Retraining, Functional Mobility, Group Exercise/Act as Ind, Orthotic Fitting/Training, UE Funct Exercise/Act, UE Neuromus Re-Ed/Coord, W/C Management Training Treatment Duration: Sep 06, 2021 Frequency: At least 5 of 7 days/Wk (IRF) Estimated Hrs Per Day: 1.5 hours per day (75-90min/day ) Agreement: Yes Rehab Potential: Fair Time/GCodes Start Time: 10:15 Stop Time: 11:30 Total Time Billed (hr/min): 75 Billed Treatment Time 1 visit-ADL 5 (75 min) ROSALEE ESQUIVEL Aug 19, 2021 11:40
--- NOTE | 2021-08-19 12:45 | Speech Therapy Daily Note ---
Speech Daily Progress Note Subjective Date Seen by Provider: Aug 19, 2021 Time Seen by Provider: 11:30 The patient was lying in his bed, awake and alert upon entrance to his room by the clinician. The patient greeted the clinician appropriately and was agreeable to participation in the cognitive linguistic treatment session. Objective The patient completed a visual memory task on this date. The patient was provided a picture and asked to study the picture for approximately two minutes. Following the two minutes, the picture was removed and the clinician asked the patient questions regarding the picture. The patient displayed high accuracy, completing the task with 95% and mild clinician cueing. Assessment Assessment Current Status: Good Progress Treatment Plan Continue Plan of Care Speech Short Term Goals Short Term Goals Short Term Goals 1. The patient will display 90% accuracy with memory exercises and strategies with mild clinician verbal cueing. Time Frame-STG: One Week. Speech Boxing And Pressing Supervisor Goals Senior Care Goals 1. The patient will display improved cognitive linguistic skills for safe discharge to the least restrictive environment. Time Frame: Two Weeks. Speech-Plan Treatment Plan Speech Therapy Treatment Plan: Continue Plan of Care Treatment Duration: Aug 11, 2021 Frequency: Modified Program (IRF) Estimated Hrs Per Day: Other Rehab Potential: Fair Safety Risks/Education Teaching Recipient: Patient Teaching Methods: Discussion Response to Teaching: Return Demonstration Education Topics Provided: Internal Memory Strategies Time Speech Therapy Time In: 11:30 Speech Therapy Time Out: 12:00 Total Billed Time: 30 Billed Treatment Time JoanneCARLOS ELIZABETH ST Aug 19, 2021 12:45
[2021-08-19] MEDS: TAMSULOSIN 0.4 MG (FLOMAX) CAP PO SCH (17:25)
[2021-08-19] MEDS: rOPINIRole 0.25 MG (REQUIP) TAB PO SCH (20:47)
[2021-08-19 20:50] VITALS: BP 129/60
--- NOTE | 2021-08-20 06:20 | PM&R Progress Note ---
Subjective HPI/CC On Admission Date Seen by Provider: Aug 20, 2021 Time Seen by Provider: 12:00 Subjective/Events-last exam 08/20/2021: Patient feels good No pain Leg cramp med missing No falls 08/19/21: Pt is doing pretty well No concerns at this point Bowels moved today Ate a lot more on his meals today No new issues 08/18/2021: Patient having no major issues Supportive care continues No pain Bowels are moving 08/17/21: Patient doing well Changing Nebs to BID prn Using IS Lungs are clear Doing better 08/16/2021: Patient has no issues Lungs are clear today Nebs and IS maintained Pain controlled Daughter thinks he is doing "ok" 08/15/2021: Patient having a good day No pain reported Working on transfers BM+ 08/14/2021: Patient doing well No pain reported Transfers are still slow and with a lot of effort 08/13/2021: Patient doing well Slept well last night Check meds labs No falls 08/12/21: Pt is doing really well Bowels moved today Transfer is working on due to right sided weakness No other new issues 08/11/2021: Pt did pretty well throughout the night Bowels moved last night Overall working on recovering strength Checked meds and labs Labs otherwise stable Review of Systems General: Fatigue, Malaise Neurological: Weakness Objective Exam Vital Signs Vital Signs Date Time Temp Pulse Resp B/P (MAP) Pulse Ox O2 Delivery O2 Flow Rate FiO2 08/20/21 19:49 36.5 68 17 128/64 (85) 96 Room Air 08/18/21 08:06 0.00 Capillary Refill : General Appearance: No Apparent Distress, WD/WN, Chronically ill, Obese HEENT: PERRL/EOMI, Normal ENT Inspection, Pharynx Normal Neck: Full Range of Motion, Normal Inspection, Non Tender, Supple, Carotid Bruit Respiratory: Chest Non Tender, Lungs Clear, Normal Breath Sounds, No Accessory Muscle Use, No Respiratory Distress Cardiovascular: Regular Rate, Rhythm, No Edema, No Gallop, No JVD, No Murmur, Normal Peripheral Pulses Gastrointestinal: Normal Bowel Sounds, No Organomegaly, No Pulsatile Mass, Non Tender, Soft Back: Normal Inspection, No CVA Tenderness, No Vertebral Tenderness Extremity: Normal Capillary Refill, Normal Inspection, Normal Range of Motion, Non Tender, No Calf Tenderness, No Pedal Edema Neurologic/Psychiatric: Alert, Oriented x3, user support specialist II-XII Norm as Tested, Depressed Affect, Motor Weakness (right sided chronic, generalized all extremities) Skin: Normal Color, Warm/Dry Lymphatic: No Adenopathy Results/Procedures Lab Patient resulted labs reviewed. FIM Transfers Therapy Code Descriptions/Definitions Functional [place] Measure: 0=Not Assessed/NA 4=Minimal Assistance 1=Total Assistance 5=Supervision or Setup 2=Maximal Assistance 6=Modified [place] 3=Moderate Assistance 7=Complete IndependenceSCALE: Activities may be completed with or without assistive devices. 7-Fsbxjszmtt-ytsuona completes the activity by him/herself with no assistance from a helper. 5-Set-up or Clean-up Assistance-helper sets up or cleans up; patient completes activity. [place] assists only prior to or following the activity. 4-Supervision or Touching Assistance-helper provides verbal cues and/or touching/steadying and/or contact guard assistance as patient completes activity. Assistance may be provided throughout the activity or intermittently. 3-Partial/Moderate Assistance-helper does LESS THAN HALF the effort. [place] lifts, holds or supports trunk or limbs, but provides less than half the effort. 2-Substantial/Maximal Assistance-helper does MORE THAN HALF the effort. [place] lifts or holds trunk or limbs and provides more than half the effort. 1-Ljwiljchl-abzqkz does ALL the effort. Patient does none of the effort to complete the activity. Or, the assistance of 2 or more helpers is required for the patient to complete the activity. If activity was not attempted, code reason: 7-Patient Refused. 9-Not Applicable-not attempted and the patient did not perform the activity before the current illness, exacerbation or injury. 10-Not Attempted due to Environmental Limitations-(lack of equipment, weather restraints, etc.). 88-Not Attempted due to Medical Conditions or Safety Concerns. Roll Left to Right (QC): 4 (using bed rail) Sit to Lying (QC): 4 Sit to Stand (QC): 4 Chair/Urg-cc-Tyqki Xfer(QC): 4 Car Transfer (QC): 3 Gait Training Does the Patient Walk?: Yes Distance: 15' x8 Walk 10 feet (QC): 4 Walk 50 ft with 2 Turns(QC): 4 Walk 150 ft (QC): 88 Walking 10ft/uneven surface-QC: 88 Gait Persons Needed: 1 Gait Assistive Device: Cane Single Point Wheelchair Training Does the Pt Use a Wheelchair?: Yes Distance: 50' Wheel 50 ft with 2 turns (QC): 6 Wheel 150 ft (QC): 4 Type of Wheelchair: Manual Stair Training 1 Step (curb) (QC): 88 4 Steps (QC): 88 12 Steps (QC): 88 Balance Picking up an Object (QC): 88 ADL-Treatment Eating (QC): 5 Oral Hygiene (QC): 6 Bathing Location: L Arm, R Arm, L Upper Leg, R Upper Leg, Chest, Abdomen, Perineal Area Shower/Bathe Self (QC): 3 Upper Body Dressing (QC): 3 Lower Body Dressing (QC): 2 On/Off Footwear (QC): 2 Toileting Hygiene (QC): 2 Toilet Transfer (QC): 3 Assessment/Plan Assessment and Plan Assess & Plan/Chief Complaint Assessment: Debility Pacemaker Neurogenic bladder s/p UTI catheter associated DM 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
[2021-08-20] MEDS: MULTIVIT W/MINERALS TAB (THERAGRAN M) PO SCH (06:56)
[2021-08-20] MEDS: metFORMIN 500 MG (GLUCOPHAGE) TAB PO SCH ×2 (06:56→17:17)
[2021-08-20 07:08] VITALS: BP 104/62
[2021-08-20] MEDS: DOCUSATE SODIUM 100 MG (COLACE) CAP PO SCH ×2 (08:09→21:48)
[2021-08-20] MEDS: ASPIRIN E.C. 81 MG (ECOTRIN) TAB PO SCH (08:09)
[2021-08-20] MEDS: TROSPIUM 20 MG (SANCTURA) TAB PO SCH ×2 (08:09→21:48)
[2021-08-20] MEDS: MIRABEGRON 25 MG TAB (MYRBETRIQ) PO SCH (08:09)
[2021-08-20] MEDS: amLODIPine 10 MG (NORVASC) TAB PO SCH (08:10)
[2021-08-20] MEDS: lisINopril 5 MG (PRINIVIL) TABLET PO SCH (08:10)
[2021-08-20] MEDS: CLOPIDOGREL 75 MG (PLAVIX) TABLET PO SCH (08:10)
[2021-08-20] MEDS: SENNA W/DOCUSATE (SENOKOT S) TABLET PO SCH ×2 (08:10→21:48)
[2021-08-20] MEDS: FINASTERIDE (PROSCAR) 5 MG TAB PO SCH (08:10)
[2021-08-20] MEDS: polyethylene glycoL POWDER 17 GM (MIRALAX) PACK PO SCH ×2 (08:11→21:53)
--- NOTE | 2021-08-20 11:53 | Physical Therapy Daily Note ---
PT Daily Note-Current Subjective Pt in bed upon arrival and agrees to PT. Pt does not report any pain this date. Mental Status Patient Orientation: Confused Attachments: Suprapubic Catheter Transfers SCALE: Activities may be completed with or without assistive devices. 2-Vemkwifqfb-porcsyl completes the activity by him/herself with no assistance from a helper. 5-Set-up or Clean-up Assistance-helper sets up or cleans up; patient completes activity. [place] assists only prior to or following the activity. 4-Supervision or Touching Assistance-helper provides verbal cues and/or touching/steadying and/or contact guard assistance as patient completes activity. Assistance may be provided throughout the activity or intermittently. 3-Partial/Moderate Assistance-helper does LESS THAN HALF the effort. [place] lifts, holds or supports trunk or limbs, but provides less than half the effort. 2-Substantial/Maximal Assistance-helper does MORE THAN HALF the effort. [place] lifts or holds trunk or limbs and provides more than half the effort. 5-Msgwkwtln-yoohwh does ALL the effort. Patient does none of the effort to complete the activity. Or, the assistance of 2 or more helpers is required for the patient to complete the activity. If activity was not attempted, code reason: 7-Patient Refused. 9-Not Applicable-not attempted and the patient did not perform the activity before the current illness, exacerbation or injury. 10-Not Attempted due to Environmental Limitations-(lack of equipment, weather restraints, etc.). 88-Not Attempted due to Medical Conditions or Safety Concerns. Roll Left & Right (QC): 4 Weight Bearing Full Weight Bearing Full Weight Bearing Exercises Supine Ex: Bridging, Ankle pumps, Quad Set, Rolling, Glut sets, Heel Slides, Short Arc Quads, Scooting, Straight leg raise, Hip abd/add Supine Reps: 25 Treatments Pt performs all supine exs in bed. Call light nearby and all needs met as PT departs. Assessment Current Status: Fair Progress Pt required verbal and tactile cues in order to perform exs correctly. RLE fatigues quicker as compared to LLE. PT Short Term Goals Short Term Goals Time Frame: Aug 17, 2021 Roll Left & Right: 3 (Ed) Sit to lyin (Ed) Lying to sitting on side of be: 3 (Ed) Sit to stand: 4 (CGA) Chair/dyt-ok-wmqlc transfer: 4 (CGA) Walk 10 feet: 4 (CGA) PT Sat Act Instructor Goals Sat Act Instructor Goals PT Sat Act Instructor Goals Time Frame: Aug 31, 2021 Roll Left & Right (QC): 4 (SBA) Sit to Lying (QC): 4 (SBA) Lying-Sitting on Side/Bed(QC): 4 (SBA) Sit to Stand (QC): 4 (SBA) Chair/Yth-vf-Sanhl Xfer(QC): 4 (SBA) Toilet Transfer (QC): 4 (SBA) Car Transfer (QC): 4 (SBA) Does the Patient Walk: Yes Walk 10 feet (QC): 4 (SBA) Walk 50ft with 2 Turns (QC): 88 Walk 150 ft (QC): 88 Walking 10ft on Uneven Surface: 4 (CGA) 1 Step (curb) (QC): 88 4 Steps (QC): 88 12 Steps (QC): 88 Picking up an Object (QC): 88 Wheel 50 feet with 2 turns (QC: 6 Wheel 150 feet: 6 PT Plan Problem List Problem List: Activity Tolerance, Functional Strength Treatment/Plan Treatment Plan: Continue Plan of Care Treatment Plan: Bed Mobility, Education, Functional Activity Ki, Functional Strength, Group Therapy, Gait, Safety, Therapeutic Exercise, Transfers Treatment Duration: Aug 31, 2021 Frequency: At least 5 of 7 days/Wk (IRF) Estimated Hrs Per Day: 1.5 hours per day Patient and/or Family Agrees t: Yes Safety Risks/Education Patient Education: Correct Positioning Teaching Recipient: Patient Teaching Methods: Discussion Response to Teaching: Return Demonstration Time/GCodes Time In: 1000 Time Out: 1030 Total Billed Treatment Time: 30 Total Billed Treatment 1, Ex x 2 ABISAI HAHN MAKE UP ARRANGER Aug 20, 2021 11:53
[2021-08-20] MEDS: TAMSULOSIN 0.4 MG (FLOMAX) CAP PO SCH (17:18)
[2021-08-20 19:49] VITALS: BP 128/64
[2021-08-20] MEDS: rOPINIRole 0.25 MG (REQUIP) TAB PO SCH (21:47)
--- NOTE | 2021-08-21 06:23 | PM&R Progress Note ---
Subjective HPI/CC On Admission Date Seen by Provider: Aug 21, 2021 Time Seen by Provider: 11:00 Subjective/Events-last exam 08/21/21: Patient doing well No pain reported RLS issues are chronic Catheter remains in place 08/20/2021: Patient feels good No pain Leg cramp med missing No falls 08/19/21: Pt is doing pretty well No concerns at this point Bowels moved today Ate a lot more on his meals today No new issues 08/18/2021: Patient having no major issues Supportive care continues No pain Bowels are moving 08/17/21: Patient doing well Changing Nebs to BID prn Using IS Lungs are clear Doing better 08/16/2021: Patient has no issues Lungs are clear today Nebs and IS maintained Pain controlled Daughter thinks he is doing "ok" 08/15/2021: Patient having a good day No pain reported Working on transfers BM+ 08/14/2021: Patient doing well No pain reported Transfers are still slow and with a lot of effort 08/13/2021: Patient doing well Slept well last night Check meds labs No falls 08/12/21: Pt is doing really well Bowels moved today Transfer is working on due to right sided weakness No other new issues 08/11/2021: Pt did pretty well throughout the night Bowels moved last night Overall working on recovering strength Checked meds and labs Labs otherwise stable Review of Systems General: Fatigue, Malaise Objective Exam Vital Signs Vital Signs Date Time Temp Pulse Resp B/P (MAP) Pulse Ox O2 Delivery O2 Flow Rate FiO2 08/21/21 09:34 Room Air 08/21/21 07:04 36.5 75 16 130/74 (92) 100 08/20/21 20:47 0.00 Capillary Refill : General Appearance: No Apparent Distress, WD/WN, Chronically ill, Obese HEENT: PERRL/EOMI, Normal ENT Inspection, Pharynx Normal Neck: Full Range of Motion, Normal Inspection, Non Tender, Supple, Carotid Bruit Respiratory: Chest Non Tender, Lungs Clear, Normal Breath Sounds, No Accessory Muscle Use, No Respiratory Distress Cardiovascular: Regular Rate, Rhythm, No Edema, No Gallop, No JVD, No Murmur, Normal Peripheral Pulses Gastrointestinal: Normal Bowel Sounds, No Organomegaly, No Pulsatile Mass, Non Tender, Soft Back: Normal Inspection, No CVA Tenderness, No Vertebral Tenderness Extremity: Normal Capillary Refill, Normal Inspection, Normal Range of Motion, Non Tender, No Calf Tenderness, No Pedal Edema Neurologic/Psychiatric: Alert, Oriented x3, protection specialist II-XII Norm as Tested, Depressed Affect, Motor Weakness (right sided chronic, generalized all extremities) Skin: Normal Color, Warm/Dry Lymphatic: No Adenopathy Results/Procedures Lab Patient resulted labs reviewed. FIM Transfers Therapy Code Descriptions/Definitions Functional [place] Measure: 0=Not Assessed/NA 4=Minimal Assistance 1=Total Assistance 5=Supervision or Setup 2=Maximal Assistance 6=Modified [place] 3=Moderate Assistance 7=Complete IndependenceSCALE: Activities may be completed with or without assistive devices. 0-Mtmjvnxzhj-dpvgcox completes the activity by him/herself with no assistance from a helper. 5-Set-up or Clean-up Assistance-helper sets up or cleans up; patient completes activity. [place] assists only prior to or following the activity. 4-Supervision or Touching Assistance-helper provides verbal cues and/or touching/steadying and/or contact guard assistance as patient completes activ ity. Assistance may be provided throughout the activity or intermittently. 3-Partial/Moderate Assistance-helper does LESS THAN HALF the effort. [place] lifts, holds or supports trunk or limbs, but provides less than half the effort. 2-Substantial/Maximal Assistance-helper does MORE THAN HALF the effort. [place] lifts or holds trunk or limbs and provides more than half the effort. 0-Iqvlcnlph-sncnzr does ALL the effort. Patient does none of the effort to complete the activity. Or, the assistance of 2 or more helpers is required for the patient to complete the activity. If activity was not attempted, code reason: 7-Patient Refused. 9-Not Applicable-not attempted and the patient did not perform the activity before the current illness, exacerbation or injury. 10-Not Attempted due to Environmental Limitations-(lack of equipment, weather restraints, etc.). 88-Not Attempted due to Medical Conditions or Safety Concerns. Roll Left to Right (QC): 4 Sit to Lying (QC): 4 Sit to Stand (QC): 4 Chair/Imj-rz-Pcxdu Xfer(QC): 4 Car Transfer (QC): 3 Gait Training Does the Patient Walk?: Yes Distance: 15' x8 Walk 10 feet (QC): 4 Walk 50 ft with 2 Turns(QC): 4 Walk 150 ft (QC): 88 Walking 10ft/uneven surface-QC: 88 Gait Persons Needed: 1 Gait Assistive Device: Cane Single Point Wheelchair Training Does the Pt Use a Wheelchair?: Yes Distance: 50' Wheel 50 ft with 2 turns (QC): 6 Wheel 150 ft (QC): 4 Type of Wheelchair: Manual Stair Training 1 Step (curb) (QC): 88 4 Steps (QC): 88 12 Steps (QC): 88 Balance Picking up an Object (QC): 88 ADL-Treatment Eating (QC): 5 Oral Hygiene (QC): 6 Bathing Location: L Arm, R Arm, L Upper Leg, R Upper Leg, Chest, Abdomen, Perineal Area Shower/Bathe Self (QC): 3 Upper Body Dressing (QC): 3 Lower Body Dressing (QC): 2 On/Off Footwear (QC): 2 Toileting Hygiene (QC): 2 Toilet Transfer (QC): 3 Assessment/Plan Assessment and Plan Assess & Plan/Chief Complaint Assessment: Debility Pacemaker Neurogenic bladder s/p UTI catheter associated DM 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
[2021-08-21] MEDS: metFORMIN 500 MG (GLUCOPHAGE) TAB PO SCH ×2 (06:50→17:03)
[2021-08-21] MEDS: MULTIVIT W/MINERALS TAB (THERAGRAN M) PO SCH (06:50)
[2021-08-21 07:04] VITALS: BP 130/74
[2021-08-21] MEDS: MIRABEGRON 25 MG TAB (MYRBETRIQ) PO SCH (08:43)
[2021-08-21] MEDS: FINASTERIDE (PROSCAR) 5 MG TAB PO SCH (08:43)
[2021-08-21] MEDS: TROSPIUM 20 MG (SANCTURA) TAB PO SCH ×2 (08:43→22:10)
[2021-08-21] MEDS: amLODIPine 10 MG (NORVASC) TAB PO SCH (08:43)
[2021-08-21] MEDS: ASPIRIN E.C. 81 MG (ECOTRIN) TAB PO SCH (08:43)
[2021-08-21] MEDS: CLOPIDOGREL 75 MG (PLAVIX) TABLET PO SCH (08:43)
[2021-08-21] MEDS: lisINopril 5 MG (PRINIVIL) TABLET PO SCH (08:43)
[2021-08-21] MEDS: SENNA W/DOCUSATE (SENOKOT S) TABLET PO SCH ×2 (08:44→22:11)
[2021-08-21] MEDS: polyethylene glycoL POWDER 17 GM (MIRALAX) PACK PO SCH ×2 (08:44→22:27)
[2021-08-21] MEDS: DOCUSATE SODIUM 100 MG (COLACE) CAP PO SCH ×2 (08:44→22:10)
[2021-08-21] MEDS: TAMSULOSIN 0.4 MG (FLOMAX) CAP PO SCH (17:04)
[2021-08-21 19:14] VITALS: BP 116/59
[2021-08-21] MEDS: rOPINIRole 0.25 MG (REQUIP) TAB PO SCH (22:10)
--- NOTE | 2021-08-22 06:10 | PM&R Progress Note ---
Subjective HPI/CC On Admission Date Seen by Provider: Aug 22, 2021 Time Seen by Provider: 10:30 Subjective/Events-last exam 08/22/2021: Pt is doing a lot better Bowels moved yesterday No major issues Possible discharge tomorrow will await social work 08/21/21: Patient doing well No pain reported RLS issues are chronic Catheter remains in place 08/20/2021: Patient feels good No pain Leg cramp med missing No falls 08/19/21: Pt is doing pretty well No concerns at this point Bowels moved today Ate a lot more on his meals today No new issues 08/18/2021: Patient having no major issues Supportive care continues No pain Bowels are moving 08/17/21: Patient doing well Changing Nebs to BID prn Using IS Lungs are clear Doing better 08/16/2021: Patient has no issues Lungs are clear today Nebs and IS maintained Pain controlled Daughter thinks he is doing "ok" 08/15/2021: Patient having a good day No pain reported Working on transfers BM+ 08/14/2021: Patient doing well No pain reported Transfers are still slow and with a lot of effort 08/13/2021: Patient doing well Slept well last night Check meds labs No falls 08/12/21: Pt is doing really well Bowels moved today Transfer is working on due to right sided weakness No other new issues 08/11/2021: Pt did pretty well throughout the night Bowels moved last night Overall working on recovering strength Checked meds and labs Labs otherwise stable Review of Systems General: Fatigue, Malaise Neurological: Weakness Objective Exam Vital Signs Vital Signs Date Time Temp Pulse Resp B/P (MAP) Pulse Ox O2 Delivery O2 Flow Rate FiO2 08/22/21 21:00 Room Air 08/22/21 20:00 37.0 71 20 122/61 (81) 94 08/21/21 18:57 0.00 Capillary Refill : General Appearance: No Apparent Distress, WD/WN, Chronically ill, Obese HEENT: PERRL/EOMI, Normal ENT Inspection, Pharynx Normal Neck: Full Range of Motion, Normal Inspection, Non Tender, Supple, Carotid Bruit Respiratory: Chest Non Tender, Lungs Clear, Normal Breath Sounds, No Accessory Muscle Use, No Respiratory Distress Cardiovascular: Regular Rate, Rhythm, No Edema, No Gallop, No JVD, No Murmur, Normal Peripheral Pulses Gastrointestinal: Normal Bowel Sounds, No Organomegaly, No Pulsatile Mass, Non Tender, Soft Back: Normal Inspection, No CVA Tenderness, No Vertebral Tenderness Extremity: Normal Capillary Refill, Normal Inspection, Normal Range of Motion, Non Tender, No Calf Tenderness, No Pedal Edema Neurologic/Psychiatric: Alert, Oriented x3, manager of finance II-XII Norm as Tested, Dep ressed Affect, Motor Weakness (right sided chronic, generalized all extremities) Skin: Normal Color, Warm/Dry Lymphatic: No Adenopathy Results/Procedures Lab Laboratory Tests 08/22/21 07:00 Patient resulted labs reviewed. FIM Transfers Therapy Code Descriptions/Definitions Functional [place] Measure: 0=Not Assessed/NA 4=Minimal Assistance 1=Total Assistance 5=Supervision or Setup 2=Maximal Assistance 6=Modified [place] 3=Moderate Assistance 7=Complete IndependenceSCALE: Activities may be completed with or without assistive devices. 0-Eurcxnhgpx-sepbnzg completes the activity by him/herself with no assistance from a helper. 5-Set-up or Clean-up Assistance-helper sets up or cleans up; patient completes activity. [place] assists only prior to or following the activity. 4-Supervision or Touching Assistance-helper provides verbal cues and/or touching/steadying and/or contact guard assistance as patient completes activity. Assistance may be provided throughout the activity or intermittently. 3-Partial/Moderate Assistance-helper does LESS THAN HALF the effort. [place] lifts, holds or supports trunk or limbs, but provides less than half the effort. 2-Substantial/Maximal Assistance-helper does MORE THAN HALF the effort. [place] lifts or holds trunk or limbs and provides more than half the effort. 0-Bkeabjfdg-rqdhxv does ALL the effort. Patient does none of the effort to complete the activity. Or, the assistance of 2 or more helpers is required for the patient to complete the activity. If activity was not attempted, code reason: 7-Patient Refused. 9-Not Applicable-not attempted and the patient did not perform the activity before the current illness, exacerbation or injury. 10-Not Attempted due to Environmental Limitations-(lack of equipment, weather restraints, etc.). 88-Not Attempted due to Medical Conditions or Safety Concerns. Roll Left to Right (QC): 4 Sit to Lying (QC): 4 Sit to Stand (QC): 4 Chair/Dyv-fv-Znjpo Xfer(QC): 4 Car Transfer (QC): 3 Gait Training Does the Patient Walk?: Yes Distance: 15' x8 Walk 10 feet (QC): 4 Walk 50 ft with 2 Turns(QC): 4 Walk 150 ft (QC): 88 Walking 10ft/uneven surface-QC: 88 Gait Persons Needed: 1 Gait Assistive Device: Cane Single Point Wheelchair Training Does the Pt Use a Wheelchair?: Yes Distance: 50' Wheel 50 ft with 2 turns (QC): 6 Wheel 150 ft (QC): 4 Type of Wheelchair: Manual Stair Training 1 Step (curb) (QC): 88 4 Steps (QC): 88 12 Steps (QC): 88 Balance Picking up an Object (QC): 88 ADL-Treatment Eating (QC): 5 Oral Hygiene (QC): 6 Bathing Location: L Arm, R Arm, L Upper Leg, R Upper Leg, Chest, Abdomen, Perineal Area Shower/Bathe Self (QC): 3 Upper Body Dressing (QC): 3 Lower Body Dressing (QC): 2 On/Off Footwear (QC): 2 Toileting Hygiene (QC): 2 Toilet Transfer (QC): 3 Assessment/Plan Assessment and Plan Assess & Plan/Chief Complaint Assessment: Debility Pacemaker Neurogenic bladder s/p UTI catheter associated DM 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
[2021-08-22 07:11] LABS: BASOPHILS # (AUTO) 0.1 10^3/uL (0.0-0.1); BASOPHILS % (AUTO) 1 % (0-10); EOSINOPHILS # (AUTO) 0.6 10^3/uL (0.0-0.3); EOSINOPHILS % (AUTO) 8 % (0-10); HEMATOCRIT 35 % (40-54); HEMOGLOBIN 11.4 g/dL (13.3-17.7); LYMPHOCYTES # (AUTO) 2.3 10^3/uL (1.0-4.0); LYMPHOCYTES % (AUTO) 30 % (12-44); MEAN CORPUSCULAR HEMOGLOBIN 30 pg (25-34); MEAN CORPUSCULAR HGB CONC 33 g/dL (32-36); MEAN CORPUSCULAR VOLUME 92 fL (80-99); MEAN PLATELET VOLUME 10.3 fL (9.0-12.2); MONOCYTES # (AUTO) 0.6 10^3/uL (0.0-1.0); MONOCYTES % (AUTO) 8 % (0-12); NEUTROPHILS % (AUTO) 53 % (42-75); PLATELET COUNT 364 10^3/uL (130-400); WHITE BLOOD COUNT 7.7 10^3/uL (4.3-11.0)
[2021-08-22] MEDS: MULTIVIT W/MINERALS TAB (THERAGRAN M) PO SCH (07:23)
[2021-08-22] MEDS: metFORMIN 500 MG (GLUCOPHAGE) TAB PO SCH ×2 (07:23→17:35)
[2021-08-22] MEDS: MIRABEGRON 25 MG TAB (MYRBETRIQ) PO SCH (07:23)
[2021-08-22 07:32] LABS: ALBUMIN 3.6 GM/DL (3.2-4.5); BILIRUBIN,TOTAL 0.4 MG/DL (0.1-1.0); CALCIUM 9.3 MG/DL (8.5-10.1); CREATININE SERUM 0.86 MG/DL (0.60-1.30); POTASSIUM 4.6 MMOL/L (3.6-5.0); TOTAL PROTEIN 6.2 GM/DL (6.4-8.2)
[2021-08-22 07:51] VITALS: BP 110/56
[2021-08-22] MEDS: polyethylene glycoL POWDER 17 GM (MIRALAX) PACK PO SCH ×2 (08:27→22:16)
[2021-08-22] MEDS: SENNA W/DOCUSATE (SENOKOT S) TABLET PO SCH ×2 (08:33→22:16)
[2021-08-22] MEDS: ASPIRIN E.C. 81 MG (ECOTRIN) TAB PO SCH (08:33)
[2021-08-22] MEDS: amLODIPine 10 MG (NORVASC) TAB PO SCH (08:33)
[2021-08-22] MEDS: TROSPIUM 20 MG (SANCTURA) TAB PO SCH ×2 (08:34→23:05)
[2021-08-22] MEDS: CLOPIDOGREL 75 MG (PLAVIX) TABLET PO SCH (08:34)
[2021-08-22] MEDS: FINASTERIDE (PROSCAR) 5 MG TAB PO SCH (08:34)
[2021-08-22] MEDS: DOCUSATE SODIUM 100 MG (COLACE) CAP PO SCH ×2 (08:36→23:04)
[2021-08-22] MEDS: lisINopril 5 MG (PRINIVIL) TABLET PO SCH (08:36)
--- NOTE | 2021-08-22 10:24 | Physical Therapy Daily Note ---
PT Daily Note-Current Subjective Pt laying Supine in bed upon arrival. Pt agrees to PT. Pain Location: No Pain Reported Mental Status Patient Orientation: Person, Place, Time, Situation Attachments: Beasley Catheter Transfers SCALE: Activities may be completed with or without assistive devices. 4-Cyjtldfiac-tzzqiys completes the activity by him/herself with no assistance from a helper. 5-Set-up or Clean-up Assistance-helper sets up or cleans up; patient completes activity. [place] assists only prior to or following the activity. 4-Supervision or Touching Assistance-helper provides verbal cues and/or touching/steadying and/or contact guard assistance as patient completes activity. Assistance may be provided throughout the activity or intermittently. 3-Partial/Moderate Assistance-helper does LESS THAN HALF the effort. [place] lifts, holds or supports trunk or limbs, but provides less than half the effort. 2-Substantial/Maximal Assistance-helper does MORE THAN HALF the effort. [place] lifts or holds trunk or limbs and provides more than half the effort. 5-Svwjoniip-cxyarl does ALL the effort. Patient does none of the effort to complete the activity. Or, the assistance of 2 or more helpers is required for the patient to complete the activity. If activity was not attempted, code reason: 7-Patient Refused. 9-Not Applicable-not attempted and the patient did not perform the activity before the current illness, exacerbation or injury. 10-Not Attempted due to Environmental Limitations-(lack of equipment, weather restraints, etc.). 88-Not Attempted due to Medical Conditions or Safety Concerns. Roll Left & Right (QC): 6 Sit to Lying (QC): 4 Lying to Sitting/Side of Bed(Q: 4 Sit to Stand (QC): 3 Chair/Lfd-kq-Hoinz Xfer(QC): 4 Toilet Transfer (QC): 4 Car Transfer (QC): 3 Weight Bearing Full Weight Bearing Full Weight Bearing Gait Training Does the Patient Walk?: Yes Distance: 15' x4 Walk 10 feet (QC): 4 Walk 50 ft with 2 Turns(QC): 4 Walk 150 ft (QC): 7 Walking 10ft/uneven surface-QC: 4 Gait Persons Needed: 1 Used hallway railing for gait and walking over varying surface Wheelchair Training Does the Pt Use a Wheelchair?: Yes Wheel 50 ft with 2 turns (QC): 5 Wheel 150 ft (QC): 5 Type of Wheelchair: Manual Stair Training #of Steps: 0 1 Step (curb) (QC): 88 4 Steps (QC): 88 12 Steps (QC): 88 Balance Picking up an Object (QC): 88 Special Test Comments Pt is able to sit and use world designer but cannot attempt standing due to needing to hold railing w/L UE (good side) and cannot hold/use world designer on R side Treatments Pt completes QC scoring items listed above as well as attempts to use BR for BM w/o success. Pt resting in WCH in room at end of tx. OT to arrive shortly. All needs met, call light in hand. Assessment Current Status: Good Progress Pt has improved w/WCH & gait mobility although R UE still limits ability to complete more tasks. Family to assist at home. PT Short Term Goals Short Term Goals Time Frame: Aug 17, 2021 Roll Left & Right: 3 (Ed) Sit to lyin (Ed) Lying to sitting on side of be: 3 (Ed) Sit to stand: 4 (CGA) Chair/omh-xf-zrixx transfer: 4 (CGA) Walk 10 feet: 4 (CGA) PT Trimmer Climber Goals Trimmer Climber Goals PT Trimmer Climber Goals Time Frame: Aug 31, 2021 Roll Left & Right (QC): 4 (SBA) Sit to Lying (QC): 4 (SBA) Lying-Sitting on Side/Bed(QC): 4 (SBA) Sit to Stand (QC): 4 (SBA) Chair/Weg-db-Gciqw Xfer(QC): 4 (SBA) Toilet Transfer (QC): 4 (SBA) Car Transfer (QC): 4 (SBA) Does the Patient Walk: Yes Walk 10 feet (QC): 4 (SBA) Walk 50ft with 2 Turns (QC): 88 Walk 150 ft (QC): 88 Walking 10ft on Uneven Surface: 4 (CGA) 1 Step (curb) (QC): 88 4 Steps (QC): 88 12 Steps (QC): 88 Picking up an Object (QC): 88 Wheel 50 feet with 2 turns (QC: 6 Wheel 150 feet: 6 PT Plan Problem List Problem List: Activity Tolerance, Functional Strength, Balance, Transfer Treatment/Plan Treatment Plan: Continue Plan of Care Treatment Plan: Bed Mobility, Education, Functional Activity Ki, Functional Strength, Group Therapy, Gait, Safety, Therapeutic Exercise, Transfers Treatment Duration: Aug 31, 2021 Frequency: At least 5 of 7 days/Wk (IRF) Estimated Hrs Per Day: 1.5 hours per day Patient and/or Family Agrees t: Yes Safety Risks/Education Patient Education: Gait Training, Transfer Techniques, Correct Positioning, Safety Issues Teaching Recipient: Patient Teaching Methods: Discussion Response to Teaching: Verbalize Understanding Time/GCodes Time In: 900 Time Out: 1015 Total Billed Treatment Time: 75 Total Billed Treatment 1, FA x3 (45m), [facility] (15m) & GT (15m) [facility] Aug 22, 2021 10:24
--- NOTE | 2021-08-22 11:24 | Speech Therapy Daily Note ---
Speech Daily Progress Note Subjective Date Seen by Provider: Aug 22, 2021 Time Seen by Provider: 08:30 The patient was lying in bed, awake and alert upon entrance to his room by the clinician. The patient greeted the clinician appropriately and was agreeable to participation in the cognitive linguistic treatment session. Objective - Orientation: The patient was oriented to month, day of week, date, year, and location with use of the in-room white board. The patient independently located and utilized the visual cue without aid from the clinician. - Safety Review: As the patient prepares for discharge, the clinician reviewed a safety discussion from the week prior. The patient is open to use of the life alert system and was able to identify appropriate periods of use. Expression of Ideas/Wants: Exhibits (3) Understanding Verbal Content: Usually Understands (3) Brief Interview-Mental Status: Yes Repetition of Three Words: Three (3) Temporal Orientation: Year: Correct (3) Temporal Orientation: Month: Accurate within 5 days(2) Temporal Orientation: Day: Correct (1) Recall : Wear to say "Sock": Yes, no cue required (2) Recall : Color: Yes, no cue required (2) Recall : Bed: Yes,after cueing (1) Memory/Recall Ability: Current season, That he or she is in a hsp/hsp unit Assessment Assessment Current Status: Fair Progress Treatment Plan Continue Plan of Care Speech Short Term Goals Short Term Goals Short Term Goals 1. The patient will display 90% accuracy with memory exercises and strategies with mild clinician verbal cueing. Time Frame-STG: One Week. Speech Home Organizer Goals Home Organizer Goals 1. The patient will display improved cognitive linguistic skills for safe disc harge to the least restrictive environment. Time Frame: Two Weeks. Speech-Plan Treatment Plan Speech Therapy Treatment Plan: Discontinue ST Treatment Duration: Aug 11, 2021 Frequency: Modified Program (IRF) Estimated Hrs Per Day: Other Rehab Potential: Fair Safety Risks/Education Teaching Recipient: Patient Teaching Methods: Discussion Response to Teaching: Reinforcement Needed Education Topics Provided: Safety Review, POC Time Speech Therapy Time In: 08:30 Speech Therapy Time Out: 09:00 Total Billed Time: 30 Billed Treatment Time 1CARLOSJUWAN Aug 22, 2021 11:24
--- NOTE | 2021-08-22 11:25 | Therapy Team Discharge Summary ---
Therapy Discharge Summary Discharge Recommendations Date of Discharge Physical Therapy Roll Left to Right (QC): 6 Sit to Lying (QC): 4 Lying to Sitting/Side of Bed(Q: 4 Sit to Stand (QC): 3 Chair/Zze-wj-Zbqxb Xfer(QC): 4 Toilet Transfer (QC): 4 Car Transfer (QC): 3 Does the Patient Walk: Yes Mode of Locomotion: Walk Anticipated Mode of Locomotion: Walk Walk 10 feet (QC): 4 Walk 50 ft with 2 Turns(QC): 4 Walk 150 ft (QC): 88 Walking 10ft on uneven surface: 88 Distance: 5' Gait Assistive Device: Cane Single Point Does the Pt Use a Wheelchair: Yes Wheelchair Distance: 50' Wheel 50 ft with 2 turns (QC): 6 Wheel 150 ft (QC): 4 Type of Wheelchair: Manual 1 Step (curb) (QC): 88 4 Steps (QC): 88 12 Steps (QC): 88 Balance Sitting Static: Fair Balance Sitting Dynamic: Fair Balance-Standing Static: Poor Picking up an Object (QC): 88 Occupational Therapy Decreased Activ Tolerance, Decreased UE Strength, Impaired Bed Mobility, Impaired Self-Care Skills, Restricted Funct UE ROM Eating (QC): 5 Oral Hygiene (QC): 6 Shower/Bathe Self (QC): 3 Upper Body Dressing (QC): 3 Lower Body Dressing (QC): 2 On/Off Footwear (QC): 2 Toileting Hygiene (QC): 2 Speech-Language Pathology Expression of Ideas/Wants: Exhibits (3) Understanding Verbal Content: Usually Understands (3) Brief Interview-Mental Status: Yes Repetition of Three Words: Three (3) Temporal Orientation: Year: Correct (3) Temporal Orientation: Month: Accurate within 5 days(2) Temporal Orientation: Day: Correct (1) Recall : Wear to say "Sock": Yes, no cue required (2) Recall : Color: Yes, no cue required (2) Recall : Bed: Yes,after cueing (1) Memory/Recall Ability: Current season, That he or she is in a hsp/hsp unit The patient progressed towards cognitive linguistic goals throughout skilled treatment sessions, however, full achievement was not reached. The patient remains most appropriate for discharge to a intermediate setting or home with supervision. PT Usp Goals Usp Goals PT Usp Goals Time Frame: Aug 31, 2021 Roll Left to Right (QC): 4 (SBA) Sit to Lying (QC): 4 (SBA) Lying-Sitting on Side/Bed(QC): 4 (SBA) Sit to Stand (QC): 4 (SBA) Chair/Oqh-jd-Sorlh Xfer(QC): 4 (SBA) Car Transfer (QC): 4 (SBA) Does the Patient Walk: Yes Walk 10 feet (QC): 4 (SBA) Walk 10ft-Uneven Surface(QC): 4 (CGA) Walk 50ft with 2 Turns (QC): 88 Walk 150 ft (QC): 88 Wheel 50 feet with 2 turns (QC: 6 1 Step (curb) (QC): 88 4 Steps (QC): 88 12 Steps (QC): 88 Picking up an Object (QC): 88 OT Emissions Testing And Repair Technician Goals Usp Goals Time Frame: Sep 06, 2021 Eating (QC): 5 Oral Hygiene (QC): 5 Shower/Bathe Self (QC): 3 Upper Body Dressing (QC): 3 Lower Body Dressing (QC): 3 On/Off Footwear (QC): 3 Toileting Hygiene (QC): 4 Toilet/Commode Transfer (QC): 4 (SBA) 1=Demonstrate adherence to instructed precautions during ADL tasks. 2=Patient will verbalize/demonstrate understanding of assistive devices/modifications for ADL. 3=Patient will improve strength/tolerance for activity to enable patient to perform ADL's. Speech Emissions Testing And Repair Technician Goals Usp Goals 1. The patient will display improved cognitive linguistic skills for safe discharge to the least restrictive environment. Time Frame: Two Weeks. JUWAN RED Aug 22, 2021 11:25
--- NOTE | 2021-08-22 11:43 | Occupational Ther Daily Note ---
OT Current Status-Daily Note Subjective Pt alert, sitting in w/c. Pt agrees to therapy. No c/o pain. Mental Status/Objective Patient Orientation: Person, Place, Time, Situation Attachments: Suprapubic Catheter ADL-Treatment Pt agrees to shower. SBA for supine to EOB with HOB raised. CGA for SPT from EOB to w/c. Pt sat at sink to complete grooming and oral care independently. CGA to transfer shower bench <-> w/c. Pt sits on shower bench 90% of time to bathe all areas except feet then stands using grabbar to stabilize while assist to cleanse buttocks. Pt able to doff shirt by self, min A donning shirt (assist to thread R UE). Assist to hike over hips to doff/don pants while pt stands by self using grabbar for support. Pt able to doff clothing over feet by self then assist to thread feet into pants. Doffs socks by self using chyron operator, assist to doff/don socks. Pt doffs B shoes by self then is able to place toes into B shoes using chyron operator then dons L by self and assist to slide heel into R shoe due to back of shoe bending. Per clinical judgment, pt able to stand using grabbars by self and assist only to manipulate clothing and cleanse for toileting. After session, pt lying in bed with call light/phone in reach. All needs met in room. Therapy Code Descriptions/Definitions Functional Kirk Measure: 0=Not Assessed/NA 4=Minimal Assistance 1=Total Assistance 5=Supervision or Setup 2=Maximal Assistance 6=Modified Kirk 3=Moderate Assistance 7=Complete IndependenceSCALE: Activities may be completed with or without assistive devices. 9-Qcqwxoyqew-cudmjhj completes the activity by him/herself with no assistance from a helper. 5-Set-up or Clean-up Assistance-helper sets up or cleans up; patient completes activity. [place] assists only prior to or following the activity. 4-Supervision or Touching Assistance-helper provides verbal cues and/or touching/steadying and/or contact guard assistance as patient completes acti vity. Assistance may be provided throughout the activity or intermittently. 3-Partial/Moderate Assistance-helper does LESS THAN HALF the effort. [place] lifts, holds or supports trunk or limbs, but provides less than half the effort. 2-Substantial/Maximal Assistance-helper does MORE THAN HALF the effort. [place] lifts or holds trunk or limbs and provides more than half the effort. 4-Zhouyydhg-ckasii does ALL the effort. Patient does none of the effort to complete the activity. Or, the assistance of 2 or more helpers is required for the patient to complete the activity. If activity was not attempted, code reason: 7-Patient Refused. 9-Not Applicable-not attempted and the patient did not perform the activity before the current illness, exacerbation or injury. 10-Not Attempted due to Environmental Limitations-(lack of equipment, weather restraints, etc.). 88-Not Attempted due to Medical Conditions or Safety Concerns. Eating (QC): 6 Oral Hygiene (QC): 6 Bathing Location: L Arm, R Arm, L Upper Leg, R Upper Leg, Chest, Abdomen, Perineal Area Shower/Bathe Self (QC): 3 Upper Body Dressing (QC): 3 Lower Body Dressing (QC): 2 On/Off Footwear: 3 Toileting Hygiene (QC): 2 Toilet Transfer (QC): 4 OT Short Term Goals Short Term Goals Time Frame: Aug 20, 2021 Eatin Oral hygiene: 5 Toileting hygiene: 2 Shower/bathe self: 2 Upper body dressin Lower body dressin Putting on/taking off footwear: 2 OT Jail Goals Health And Safety Inspector Goals Time Frame: Sep 06, 2021 Eating (QC): 5 (met) Oral Hygiene (QC): 5 (met) Toileting Hygiene (QC): 4 (not met) Shower/Bathe Self (QC): 3 (met) Upper Body Dressing (QC): 3 (met) Lower Body Dressing (QC): 3 (not met) On/Off Footwear (QC): 3 (met) 1=Demonstrate adherence to instructed precautions during ADL tasks. 2=Patient will verbalize/demonstrate understanding of assistive d evices/modifications for ADL. 3=Patient will improve strength/tolerance for activity to enable patient to perform ADL's. OT Education/Plan Problem List/Assessment Assessment: Decreased Activ Tolerance, Impaired Funct Balance, Impaired Self- Care Skills, Restricted Funct UE ROM Discharge Recommendations Plan/Recommendations: Continue POC Treatment Plan/Plan of Care Patient would benefit from OT for education, treatment and training to promote independence in ADL's, mobility, safety and/or upper extremity function for ADL's. Plan of Care: ADL Retraining, Caregiver Training, Cognitive Retraining, Functional Mobility, Group Exercise/Act as Ind, Orthotic Fitting/Training, UE Funct Exercise/Act, UE Neuromus Re-Ed/Coord, W/C Management Training Treatment Duration: Sep 06, 2021 Frequency: At least 5 of 7 days/Wk (IRF) Estimated Hrs Per Day: 1.5 hours per day (75-90min/day ) Agreement: Yes Rehab Potential: Fair Time/GCodes Start Time: 10:15 Stop Time: 11:45 Total Time Billed (hr/min): 90 Billed Treatment Time 1 visit-ADL 6 (90 min) ROSALEE ESQUIVEL Aug 22, 2021 11:43
[2021-08-22] MEDS: TAMSULOSIN 0.4 MG (FLOMAX) CAP PO SCH (17:35)
[2021-08-22 20:00] VITALS: BP 122/61
[2021-08-22] MEDS: rOPINIRole 0.25 MG (REQUIP) TAB PO SCH (23:05)
--- NOTE | 2021-08-23 06:47 | Discharge Summary ---
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 Advanced age RLS Plan: PT OT per protocol Pain control Home meds Cardiology consult 08/11/21: Supportive care Cardiology appreciated 08/12/21: Monitor closely Complete abx 08/13/2021: Supportive care Aggressive rehab 08/14/2021: Monitor BP Fall risk 08/15/2021: Aggressive rehab 08/16/2021: Monitor closely Fall risk 08/17/21: Monitor progress DC soon 08/18/2021: Supportive care Aggressive rehab 08/19/21: Monitor closely 08/20/21: Monitor leg cramps Fall risk 08/21/21: Monitor closely 08/22/2021: Discharge home tomorrow * (1) Debility Discharge Summary Discharge Physical Examination Allergies: Coded Allergies: lovastatin (Verified Adverse Reaction, Unknown, Vomiting, 08/10/21) simvastatin (Verified Adverse Reaction, Unknown, 08/10/21) Vitals & I&Os Vital Signs Date Time Temp Pulse Resp B/P (MAP) Pulse Ox O2 Delivery O2 Flow Rate FiO2 08/23/21 11:36 36.9 94 18 116/57 94 Room Air 0.00 General Appearance: Alert, Oriented X3, Cooperative Respiratory: Clear to Auscultation Cardiovascular: Regular Rate Neuro: Normal Gait, Normal Speech Psych/Mental Status: Mental Status NL Hospital Course Was the Problem List Reviewed?: Yes Pt had an uneventful 14 day hospital course after he was admitted for debility from catheter associated UTI with previous stroke. He did very well. He participated in all therapies. He completed his antibiotic. He was maintained on all of his home medication. He was able to participate in everything. He was able to increase back to his baseline in order to go home with his daughter as his caregiver. Labs (last 24 hrs) Laboratory Tests 08/11/21 08:16: White Blood Count 8.6, Red Blood Count 4.13L, Hemoglobin 12.4L, Hematocrit 38L, Mean Corpuscular Volume 92, Mean Corpuscular Hemoglobin 30, Mean Corpuscular Hemoglobin Concent 33, Red Cell Distribution Width 14.8H, Platelet Count 367, Mean Platelet Volume 9.1, Immature Granulocyte % (Auto) 0, Neutrophils (%) (Auto) 59, Lymphocytes (%) (Auto) 24, Monocytes (%) (Auto) 7, Eosinophils (%) (Auto) 9, Basophils (%) (Auto) 1, Neutrophils # (Auto) 5.1, Lymphocytes # (Auto) 2.1, Monocytes # (Auto) 0.6, Eosinophils # (Auto) 0.8H, Basophils # (Auto) 0.1, Immature Granulocyte # (Auto) 0.0, Sodium Level 137, Potassium Level 3.6, Chloride Level 100, Carbon Dioxide Level 23, Anion Gap 14, Blood Urea Nitrogen 15, Creatinine 0.90, Estimat Glomerular Filtration Rate 85, BUN/Creatinine Ratio 17, Glucose Level 189H, Calcium Level 9.6, Corrected Calcium 9.5, Total Bilirubin 0.5, Aspartate Amino Transf (AST/SGOT) 22, Alanine Aminotransferase (ALT/SGPT) 35, Alkaline Phosphatase 106, Total Protein 7.1, Albumin 4.1 08/11/21 11:23: Glucometer 104 08/22/21 07:00: White Blood Count 7.7, Red Blood Count 3.78L, Hemoglobin 11.4L, Hematocrit 35L, Mean Corpuscular Volume 92, Mean Corpuscular Hemoglobin 30, Mean Corpuscular Hemoglobin Concent 33, Red Cell Distribution Width 15.3H, Platelet Count 364, Mean Platelet Volume 10.3, Immature Granulocyte % (Auto) 0, Neutrophils (%) (Auto) 53, Lymphocytes (%) (Auto) 30, Monocytes (%) (Auto) 8, Eosinophils (%) (Auto) 8, Basophils (%) (Auto) 1, Neutrophils # (Auto) 4.0, Lymphocytes # (Auto) 2.3, Monocytes # (Auto) 0.6, Eosinophils # (Auto) 0.6H, Basophils # (Auto) 0.1, Immature Granulocyte # (Auto) 0.0, Sodium Level 137, Potassium Level 4.6, Chloride Level 107, Carbon Dioxide Level 18L, Anion Gap 12, Blood Urea Nitrogen 19H, Creatinine 0.86, Estimat Glomerular Filtration Rate 86, BUN/Creatinine Ratio 22, Glucose Level 97, Calcium Level 9.3, Corrected Calcium 9.6, Total Bilirubin 0.4, Aspartate Amino Transf (AST/SGOT) 28, Alanine Aminotransferase (ALT/SGPT) 47, Alkaline Phosphatase 76, Total Protein 6.2L, Albumin 3.6 Pending Labs Laboratory Tests 08/11/21 08:16: White Blood Count 8.6, Red Blood Count 4.13, Hemoglobin 12.4, Hematocrit 38, Mean Corpuscular Volume 92, Mean Corpuscular Hemoglobin 30, Mean Corpuscular Hemoglobin Concent 33, Red Cell Distribution Width 14.8, Platelet Count 367, Mean Platelet Volume 9.1, Immature Granulocyte % (Auto) 0, Neutrophils (%) (Auto) 59, Lymphocytes (%) (Auto) 24, Monocytes (%) (Auto) 7, Eosinophils (%) (Auto) 9, Basophils (%) (Auto) 1, Neutrophils # (Auto) 5.1, Lymphocytes # (Auto) 2.1, Monocytes # (Auto) 0.6, Eosinophils # (Auto) 0.8, Basophils # (Auto) 0.1, Immature Granulocyte # (Auto) 0.0, Sodium Level 137, Potassium Level 3.6, Chloride Level 100, Carbon Dioxide Level 23, Anion Gap 14, Blood Urea Nitrogen 15, Creatinine 0.90, Estimat Glomerular Filtration Rate 85, BUN/Creatinine Ratio 17, Glucose Level 189, Calcium Level 9.6, Corrected Calcium 9.5, Total Bilirubin 0.5, Aspartate Amino Transf (AST/SGOT) 22, Alanine Aminotransferase (ALT/SGPT) 35, Alkaline Phosphatase 106, Total Protein 7.1, Albumin 4.1 08/11/21 11:23: Glucometer 104 08/22/21 07:00: White Blood Count 7.7, Red Blood Count 3.78, Hemoglobin 11.4, Hematocrit 35, Mean Corpuscular Volume 92, Mean Corpuscular Hemoglobin 30, Mean Corpuscular Hemoglobin Concent 33, Red Cell Distribution Width 15.3, Platelet Count 364, Mean Platelet Volume 10.3, Immature Granulocyte % (Auto) 0, Neutrophils (%) (Auto) 53, Lymphocytes (%) (Auto) 30, Monocytes (%) (Auto) 8, Eosinophils (%) (Auto) 8, Basophils (%) (Auto) 1, Neutrophils # (Auto) 4.0, Lymphocytes # (Auto) 2.3, Monocytes # (Auto) 0.6, Eosinophils # (Auto) 0.6, Basophils # (Auto) 0.1, Immature Granulocyte # (Auto) 0.0, Sodium Level 137, Potassium Level 4.6, Chloride Level 107, Carbon Dioxide Level 18, Anion Gap 12, Blood Urea Nitrogen 19, Creatinine 0.86, Estimat Glomerular Filtration Rate 86, BUN/Creatinine Ratio 22, Glucose Level 97, Calcium Level 9.3, Corrected Calcium 9.6, Total Bilirubin 0.4, Aspartate Amino Transf (AST/SGOT) 28, Alanine Aminotransferase (ALT/SGPT) 47, Alkaline Phosphatase 76, Total Protein 6.2, Albumin 3.6 Discharge Home Medications: Active Scripts Active Reported Trospium Chloride 20 Mg Tablet 20 Mg PO BID Flomax (Tamsulosin HCl) 0.4 Mg Cap 0.8 Mg PO DAILY TAKES 2 (0.4MG) CAPS Solifenacin Succinate 10 Mg Tablet 10 Mg PO DAILY Simethicone 80 Mg Tab.chew 80 Mg PO BID Selenium Sulfide 2.5 % Suspension 1 Applic TP BID PRN Ropinirole HCl 0.5 Mg Tablet 0.5 Mg PO HS Polyethylene Glycol 3350 17 Gram Powd.pack 17 Gm PO DAILY DISSOLVE IN 8OZ OF FLUID AND DRINK ALL T-Gel (Kimball Tar) 0.5 % Shampoo 1 Applic TP DAILY Multivitamin with Iron Tablet (Multivitamin/Iron/Folic Acid) 18 Mg Iron-400 Mcg Tablet 1 Each PO DAILY Myrbetriq (Mirabegron) 50 Mg Tab.er.24h 50 Mg PO DAILY Metformin HCl 500 Mg Tablet 500 Mg PO BID WITH MEALS Lisinopril 2.5 Mg Tablet 2.5 Mg PO DAILY Proctozone-Hc (Hydrocortisone) 2.5 % Cream.appl 1 Applic RC BID Finasteride 5 Mg Tablet 5 Mg PO DAILY Clotrimazole-Betamethasone Crm (Clotrimazole/Betamethasone Dip) 1 %-0.05 % Cream..g. 1 Applic TP BID Clopidogrel (Clopidogrel Bisulfate) 75 Mg Tablet 75 Mg PO DAILY Temovate (Clobetasol Propionate) 0.05 % Oint...g. 1 Applic TP DAILY Atorvastatin Calcium 80 Mg Tablet 80 Mg PO 1800 Aspirin EC (Aspirin) 81 Mg Tablet.dr 81 Mg PO DAILY Amlodipine Besylate 10 Mg Tablet 5 Mg PO BID TAKE 1/2 OF 10MG TAB Proair Hfa (Albuterol Sulfate) 1 Puff Puff 2 Puff IH Q4H PRN 1 PUFF = 90 MCG Tylenol (Acetaminophen) 325 Mg Tablet 650 Mg PO Q6H PRN TAKES 2 (325MG) TABS Instructions to patient/family Please see electronic discharge instructions given to patient. Diagnosis/Problems Diagnosis/Problems (1) Debility LIBBY LEAL DO Aug 23, 2021 06:47
--- NOTE | 2021-08-23 06:47 | D/C HH Face to Face Order ---
D/C HH Face to Face Orders Reconcile Patient Problems Problems Reviewed?: Yes Instructions for Patient HH Patient Instructions/FollowUp: PCP 1 week Physician to follow Patient: PCP Discharge Diet for Home: No Restrictions Patient Problems: Debility Patient Data-Allergies,Ht & Wt Patient Allergies: Coded Allergies: lovastatin (Verified Adverse Reaction, Unknown, Vomiting, 08/10/21) simvastatin (Verified Adverse Reaction, Unknown, 08/10/21) Home Health Need/Face to Face Date of Face to Face: Aug 23, 2021 Clinical Findings: Generalized weakness and fatigue, Instability, Muscle weakness I have seen Pt auss-ut-[id number]: Yes Discharged To: Home Diagnosis/Conditions: Debility Patient is Homebound due to: Torie fall risk due to instabilty, Muscle weakness Homebound Status Due to the above stated illness, injury or surgical procedure (medical condition or diagnosis) and associated clinical findings, the patient is homebound because of his/her inability to leave home except with aid of a supportive device and/or person AND leaving the home requires a considerable and taxing effort or is medically contraindicated. Pt req the following assistanc: Wheelchair Home Health Nursing Orders Home Health Services Order: Nursing Services, Mechanical Maintenance Engineer-Evaluate & Treat, Physical Therapy-Evaluate & Treat Certify Stmt I certify that this patient is under my care and that I, a nurse practitioner or a physician; a senior assistant manager working with me, had a face to face encounter that - meets the physician face to face encounter requirements with this patient as dated. LIBBY LEAL DO Aug 23, 2021 06:47
[2021-08-23 07:31] VITALS: BP 116/57
[2021-08-23] MEDS: metFORMIN 500 MG (GLUCOPHAGE) TAB PO SCH (07:53)
[2021-08-23] MEDS: MULTIVIT W/MINERALS TAB (THERAGRAN M) PO SCH (07:53)
[2021-08-23] MEDS: TROSPIUM 20 MG (SANCTURA) TAB PO SCH (09:23)
[2021-08-23] MEDS: polyethylene glycoL POWDER 17 GM (MIRALAX) PACK PO SCH (09:23)
[2021-08-23] MEDS: MIRABEGRON 25 MG TAB (MYRBETRIQ) PO SCH (09:23)
[2021-08-23] MEDS: DOCUSATE SODIUM 100 MG (COLACE) CAP PO SCH (09:23)
[2021-08-23] MEDS: ASPIRIN E.C. 81 MG (ECOTRIN) TAB PO SCH (09:24)
[2021-08-23] MEDS: lisINopril 5 MG (PRINIVIL) TABLET PO SCH (09:24)
[2021-08-23] MEDS: CLOPIDOGREL 75 MG (PLAVIX) TABLET PO SCH (09:24)
[2021-08-23] MEDS: SENNA W/DOCUSATE (SENOKOT S) TABLET PO SCH (09:24)
[2021-08-23] MEDS: amLODIPine 10 MG (NORVASC) TAB PO SCH (09:24)
[2021-08-23] MEDS: FINASTERIDE (PROSCAR) 5 MG TAB PO SCH (09:25)
--- NOTE | 2021-08-23 11:22 | Therapy Team Discharge Summary ---
Therapy Discharge Summary Discharge Recommendations Date of Discharge Physical Therapy Patient came to rehab with debility. Upon evaluation patient performs sit <-> stand with min assist, transfers min assist, car transfer mod assist, ambulate 5' with a SPC with min assist, can propel a manual WC 50' with SBA. Patient has been performing bed mobiltity and transfer training, balance and endurance training, functional strengthening, stair training, gait training, and education. Patient has made some progress but has only met his halfway goals for rolling and supine <-> sit. Now, patient performs rolling with independence, supine <-> sit SBA, sit <-> stand min assist, transfers CGA/SBA, car transfer min/mod assist, ambulates at least 50' using the hallway railing with CGA (including 10' over an uneven surface), and can propel a manual WC with setup. Patient is being discharged from this facility today and will be discharged from PT at this time. Roll Left to Right (QC): 6 Sit to Lying (QC): 4 Lying to Sitting/Side of Bed(Q: 4 Sit to Stand (QC): 3 Chair/Cjl-dh-Hsoxy Xfer(QC): 4 Toilet Transfer (QC): 1 Car Transfer (QC): 3 Does the Patient Walk: Yes Mode of Locomotion: Walk Anticipated Mode of Locomotion: Walk Walk 10 feet (QC): 4 Walk 50 ft with 2 Turns(QC): 4 Walk 150 ft (QC): 7 Walking 10ft on uneven surface: 4 Distance: 5' Gait Assistive Device: Cane Single Point Does the Pt Use a Wheelchair: Yes Wheelchair Distance: 50' Wheel 50 ft with 2 turns (QC): 5 Wheel 150 ft (QC): 5 Type of Wheelchair: Manual #of Steps: 0 1 Step (curb) (QC): 88 4 Steps (QC): 88 12 Steps (QC): 88 Balance Sitting Static: Fair Balance Sitting Dynamic: Fair Balance-Standing Static: Poor Picking up an Object (QC): 88 Occupational Therapy Decreased Activ Tolerance, Impaired Funct Balance, Impaired Self-Care Skills, Restricted Funct UE ROM Eating (QC): 6 Oral Hygiene (QC): 6 Shower/Bathe Self (QC): 3 Upper Body Dressing (QC): 3 Lower Body Dressing (QC): 2 On/Off Footwear (QC): 3 Toileting Hygiene (QC): 2 PT Hi Lift Operator Goals Group Home Goals PT Group Home Goals Time Frame: Aug 31, 2021 Roll Left to Right (QC): 4 (SBA) Sit to Lying (QC): 4 (SBA) Lying-Sitting on Side/Bed(QC): 4 (SBA) Sit to Stand (QC): 4 (SBA) Chair/Fps-ib-Kjfur Xfer(QC): 4 (SBA) Car Transfer (QC): 4 (SBA) Does the Patient Walk: Yes Walk 10 feet (QC): 4 (SBA) Walk 10ft-Uneven Surface(QC): 4 (CGA) Walk 50ft with 2 Turns (QC): 88 Walk 150 ft (QC): 88 Wheel 50 feet with 2 turns (QC: 6 1 Step (curb) (QC): 88 4 Steps (QC): 88 12 Steps (QC): 88 Picking up an Object (QC): 88 OT Group Home Goals Group Home Goals Time Frame: Sep 06, 2021 Eating (QC): 5 (met) Oral Hygiene (QC): 5 (met) Shower/Bathe Self (QC): 3 (met) Upper Body Dressing (QC): 3 (met) Lower Body Dressing (QC): 3 (not met) On/Off Footwear (QC): 3 (met) Toileting Hygiene (QC): 4 (not met) Toilet/Commode Transfer (QC): 4 (SBA) 1=Demonstrate adherence to instructed precautions during ADL tasks. 2=Patient will verbalize/demonstrate understanding of assistive devices/modifications for ADL. 3=Patient will improve strength/tolerance for activity to enable patient to per form ADL's. Speech Group Home Goals Hi Lift Operator Goals 1. The patient will display improved cognitive linguistic skills for safe discharge to the least restrictive environment. Time Frame: Two Weeks. ALEKSANDR DINH PT Aug 23, 2021 11:22
[2021-08-23 11:36] VITALS: BP 116/57
--- NOTE | 2021-08-23 12:05 | Therapy Team Discharge Summary ---
Therapy Discharge Summary Discharge Recommendations Date of Discharge Therapy D/C Recommendations: Bath Aide, Home w/ Family Support, Occupational Therapy Home Care, Homemaker Support Physical Therapy Roll Left to Right (QC): 6 Sit to Lying (QC): 4 Lying to Sitting/Side of Bed(Q: 4 Sit to Stand (QC): 3 Chair/Amo-ts-Pvezf Xfer(QC): 4 Toilet Transfer (QC): 1 Car Transfer (QC): 3 Does the Patient Walk: Yes Mode of Locomotion: Walk Anticipated Mode of Locomotion: Walk Walk 10 feet (QC): 4 Walk 50 ft with 2 Turns(QC): 4 Walk 150 ft (QC): 7 Walking 10ft on uneven surface: 4 Distance: 5' Gait Assistive Device: Cane Single Point Does the Pt Use a Wheelchair: Yes Wheelchair Distance: 50' Wheel 50 ft with 2 turns (QC): 5 Wheel 150 ft (QC): 5 Type of Wheelchair: Manual #of Steps: 0 1 Step (curb) (QC): 88 4 Steps (QC): 88 12 Steps (QC): 88 Balance Sitting Static: Fair Balance Sitting Dynamic: Fair Balance-Standing Static: Poor Picking up an Object (QC): 88 Occupational Therapy Patient arrived to rehab with debility. Upon evaluation, he was dependent for toileting, footwear, and lower body dressing, max a for bathing, mod a for upper body dressing, and SBA for oral care and eating. During his rehab stay, OT focused on balance, strengthening, compensatory strategies, radha techniques, flexibility, weight bearing through R side, and endurance in order to improve safety, performance, and independence in adls and functional transfers. Pt made good progress and met all but 2 of his longterm goals (lower body dressing and toileting). See below for current levels of assist. Patient is being discharged from this facility today and will be discharged from OT at this time. Decreased Activ Tolerance, Impaired Funct Balance, Impaired Self-Care Skills, Restricted Funct UE ROM Eating (QC): 6 Oral Hygiene (QC): 6 Shower/Bathe Self (QC): 3 Upper Body Dressing (QC): 3 Lower Body Dressing (QC): 2 On/Off Footwear (QC): 3 Toileting Hygiene (QC): 2 PT Supervisor Filter Assembly Goals Supervisor Filter Assembly Goals PT Custodial Goals Time Frame: Aug 31, 2021 Roll Left to Right (QC): 4 (SBA) Sit to Lying (QC): 4 (SBA) Lying-Sitting on Side/Bed(QC): 4 (SBA) Sit to Stand (QC): 4 (SBA) Chair/Cib-cn-Pzsie Xfer(QC): 4 (SBA) Car Transfer (QC): 4 (SBA) Does the Patient Walk: Yes Walk 10 feet (QC): 4 (SBA) Walk 10ft-Uneven Surface(QC): 4 (CGA) Walk 50ft with 2 Turns (QC): 88 Walk 150 ft (QC): 88 Wheel 50 feet with 2 turns (QC: 6 1 Step (curb) (QC): 88 4 Steps (QC): 88 12 Steps (QC): 88 Picking up an Object (QC): 88 OT Custodial Goals Supervisor Filter Assembly Goals Time Frame: Sep 06, 2021 Eating (QC): 5 (met) Oral Hygiene (QC): 5 (met) Shower/Bathe Self (QC): 3 (met) Upper Body Dressing (QC): 3 (met) Lower Body Dressing (QC): 3 (not met) On/Off Footwear (QC): 3 (met) Toileting Hygiene (QC): 4 (not met) Toilet/Commode Transfer (QC): 4 (SBA) 1=Demonstrate adherence to instructed precautions during ADL tasks. 2=Patient will verbalize/demonstrate understanding of assistive devices/modifications for ADL. 3=Patient will improve strength/tolerance for activity to enable patient to perform ADL's. Speech Custodial Goals Custodial Goals 1. The patient will display improved cognitive linguistic skills for safe discharge to the least restrictive environment. Time Frame: Two Weeks. Diane Wilde OT Aug 23, 2021 12:05
== END 2021-08-23 11:00 | disposition home health service (06) | DRG 949 ==
PROVIDERS: ADMIT Internal Medicine; ATTEND Internal Medicine
DX: T83.511D Infection and inflammatory reaction due to indwelling urethral catheter, subsequent encounter (principal); I69.351 Hemiplegia and hemiparesis following cerebral infarction affecting right dominant side; R53.81 Other malaise; R53.1 Weakness; N40.1 Benign prostatic hyperplasia with lower urinary tract symptoms; N31.9 Neuromuscular dysfunction of bladder, unspecified; I10 Essential (primary) hypertension; E11.9 Type 2 diabetes mellitus without complications; Z66 Do not resuscitate; E78.00 Pure hypercholesterolemia, unspecified; I65.23 Occlusion and stenosis of bilateral carotid arteries; Z87.891 Personal history of nicotine dependence; Z95.0 Presence of cardiac pacemaker; Z88.8 Allergy status to other drugs, medicaments and biological substances; G25.81 Restless legs syndrome; Z79.82 Long term (current) use of aspirin; Z79.02 Long term (current) use of antithrombotics/antiplatelets; Z79.84 Long term (current) use of oral hypoglycemic drugs
CPT/HCPCS: 36415; 80053; 82947; 85025; 94640; 94664; 94760